=== PATIENT | male | born 1950 | race Caucasian/White ===

== ENCOUNTER → 2016-12-07 | Outpatient (CLI) | payer MEDICARE, BC ==
[2016-12-07 18:16] LABS: Blood Urea Nitrogen 18 mg/dL (9-20); Non-African American GFR(MDRD) >60 (>60 ml/min/1.73 sqM)
--- NOTE | 2016-12-07 19:04 | CT ---
EXAMINATION TYPE: CT abdomen pelvis w con DATE OF EXAM: 12/07/2016 COMPARISON: 05/21/2014 HISTORY: Follow up bladder cancer CT DLP: 2035 mGycm Automated exposure control for dose reduction was used. TECHNIQUE: Helical acquisition of images was performed from the lung bases through the pelvis. CONTRAST: Performed without Oral Contrast and with IV Contrast, patient injected with 100 mL of Omnipaque 300. FINDINGS: Lung bases are clear. There is no pleural effusion. Heart size is normal. There is a 1 cm cyst in the anterior right lobe of the liver. Bile ducts are not dilated. Gallbladder somewhat contracted. There is no pancreatic mass. Spleen appears normal. There is no adrenal mass. Kidneys show satisfactory contrast opacification. There is no hydronephrosi s. Ureters are not dilated. There is no retroperitoneal adenopathy. There is no ascites. I see no dis crete bladder mass. There is no pelvic mass. There is no ascites. I see no intestinal wall thickening . There are no dilated loops. Appendix is not definitely seen. There is no sign of appendicitis. Abdo tiara aorta is atheromatous. There are a few left renal parapelvic cysts. I see no bony destructive process. There is mild spondylosis in the lumbar spine.: IMPRESSION: NEGATIVE CT SCAN OF ABDOMEN AND PELVIS. LEFT RENAL PARAPELVIC CYSTS NOTED. NO EVIDENCE OF A BLADDER M ASS. NO ADVERSE CHANGE COMPARED TO OLD EXAM.
== END | disposition home or self-care (01) ==
LOC: RADCTMAIN 17:29
PROVIDERS: ATTEND Urology
DX: C67.2 Malignant neoplasm of lateral wall of bladder (principal); N28.1 Cyst of kidney, acquired
CPT/HCPCS: 82565; 84520; 74177; 36415; Q9967

== ENCOUNTER → 2017-12-29 | Outpatient (CLI) | payer MEDICARE, BC ==
--- NOTE | 2017-12-29 17:38 | P.STRESS ---
- Stress Test Note Stress Test Results/Findings: Exam Performed: stress echo exercise Exam Date: 12/29/17 Reason for Exam: Chest Pain Height: 6 ft 2 in Weight: 106.594 kg Protocol: Echo Stress Stage: 2 Duration of Exercise: 7:38 Resting Heart Rate: 60 Resting Blood Pressure: 124/80 Maximum Achieved Heart Rate: 114 Maximum Achieved Blood Pressure: 205/98 85% PMHR: 130 100% PMHR: 153 METS: 8.9 Technologist Comment: Stress Test Results/Findings: This 67-year-old gentleman with history of hypercholesterolemia and family history is being evaluated for chest pains. Stress data: Patient walked on the Jann protocol for 7 minutes and 38 seconds achieving a maximal heart rate 114, which is below his 81% predicted heart rate. The test was stopped because of fatigue and shortness of breath. EKG also showed ST-T changes suggestive of ischemia. About half to [address] horizontal depression was noted in the inferolateral leads. Patient did not explained any chest pain. Echo data: Baseline echo images show normal wall motion and thickening. Exercise echo images are suboptimal with poor visualization of the lateral wall. There is augmentation of wall motion and thickening in all the segments except the lateral wall which cannot be accurately assessed. It appears there is hypokinesis within the anterolateral wall. On the resting images, wall motion became normal. Final impression: #1. Positive stress test , based on EKG changes. However, patient did not achieve 85%. Heart rate #2. Probably positive stress echo with ischemic changes in the lateral wall. However, the test is suboptimal. # 3. The test was terminated because of fatigue and tiredness.
--- NOTE | 2017-12-29 17:51 | P.CRDCN ---
History of Present Illness Consult date: 12/29/17 History of present illness: This is a 67-year-old gentleman with family history of ischemic heart disease and hypercholesterolemia who has been experiencing intermittent chest discomfort. His felt on the left side of the chest radiating to the back. This intermittent and brief in duration. Patient claims that is under a lot of stress and he feels that could be related to the stress. He is also getting exertional fatigue. Patient was sent for stress test because of the symptoms. Patient walked on the Jann protocol for 7 minutes achieving only about 70% of his predicted heart rate. The test was stopped because of fatigue. EKGs showed evidence of about [address] depression in inferolateral leads suggestive of ischemia. Stress echocardiogram was suboptimal with poor visualization of the lateral borders. There could be ischemic changes in anterolateral segments. In view of symptoms and positive stress test and risk factors, patient is advised to have a cardiac catheterization. Patient was explained the risks and benefits of the procedure including the possibility of myocardial infarctions, stroke or even . Review of Systems REVIEW OF SYSTEMS: CONSTITUTIONAL: Accept them. Patient is doing well. No complaints of fever or chills EYES: Denies diplopia, blurring of vision EARS, NOSE, MOUTH, THROAT: Denies headaches, denies sore throat. CARDIOVASCULAR: Chest pain as per HPI RESPIRATORY: Denies shortness of breath, denies cough. GASTROINTESTINAL: Denies change in appetite, denies abdominal pain, denies diarrhea. History of polyps GENITOURINARY: History of bladder cancer MUSKULOSKELETAL: Denies pain, denies swelling. Denies any cramps or claudication INTEGUMENTARY: Denies rash, denies eczema. NEUROLOGICAL: Denies focal weakness, or visual disturbance. Denies any dizziness or syncope PSYCHIATRIC: Denies anxiety, denies depression. HEMATOLOGIC/LYMPHATIC: Denies any bleeding, denies enlarged lymph nodes. Past Medical History Past Medical History: Cancer, Hyperlipidemia Additional Past Medical History / Comment(s): HX POLYPS, HX BLADDER CA, HX OF RENAL CALCULUS History of Any Multi-Drug Resistant Organisms: None Reported Past Surgical History: Orthopedic Surgery Additional Past Surgical History / Comment(s): ARTHROSCOPY, WRIST, KNEE MIRIAM SHOULDER SX, BLADDER BX X3, MIRIAM THUMB JOINTS, 2 TRIGGER FINGERS Past Anesthesia/Blood Transfusion Reactions: Postoperative Nausea & Vomiting ( PONV) Smoking Status: Never smoker Medications and Allergies Home Medications Medication Instructions Recorded Confirmed Type Aspirin 81 mg PO DAILY 06/04/14 05/29/15 History Rosuvastatin [Crestor] 10 mg PO MOWEFR 06/04/14 06/02/15 History [place]-3 Fatty Acids/Fish Oil [Fish 1 each PO DAILY 05/29/15 05/29/15 History Oil 1,000 mg Softgel] Hydrocodone/Acetaminophen [[place] 1 each PO Q6HR PRN #40 tab 06/02/15 Rx 5-325] Ibuprofen [Motrin] 600 mg PO Q8HR PRN #30 tab 06/02/15 Rx Allergies Allergy/AdvReac Type Severity Reaction Status Date / Time shellfish derived Allergy Anaphylaxis Verified 05/29/15 10:54 Physical Exam Vitals: Intake and Output 12/29/17 12/29/17 12/29/17 06:59 14:59 22:59 Other: Weight 106.594 kg GENERAL EXAM: Patient is alert and oriented and doesn't appear to be in any acute distress HEENT: Normocephalic. Normal reaction of pupils, equal size, normal range of extraocular motion. No erythema or exudates in the throat. NECK: No masses, no nuchal rigidity. CHEST: No chest wall deformity. LUNGS: Equal air entry with no crackles or wheeze. HEART: S1 and S2 normal with no audible mumurs or gallops. Regular rhythm, femorals equal on both sides.. ABDOMEN: No hepatosplenomegaly, normal bowel sounds, no guarding or rigidity. SKIN: No rashes CENTRAL NERVOUS SYSTEM: No focal deficits. EXTREMITIES: No cyanosis, clubbing or edema. Results Intake and Output 12/29/17 12/29/17 12/29/17 06:59 14:59 22:59 Other: Weight 106.594 kg Patient Weight 12/30/17 06:59 Weight 106.594 kg EKG Interpretations (text) Sinus rhythm Assessment and Plan (1) Positive cardiac stress test Current Visit: Yes Status: Acute Code(s): R94.39 - ABNORMAL RESULT OF OTHER CARDIOVASCULAR FUNCTION STUDY SNOMED Code(s): 551057770 (2) Hypercholesterolemia Current Visit: Yes Status: Acute Code(s): E78.00 - PURE HYPERCHOLESTEROLEMIA , UNSPECIFIED SNOMED Code(s): 57706023 (3) Family history of ischemic heart disease Current Visit: Yes Status: Acute Code(s): Z82.49 - FAMILY HX OF ISCHEM HEART DIS AND OTH DIS OF THE CIRC SYS SNOMED Code(s): 103504780 (4) Chest pain Current Visit: Yes Status: Acute Code(s): R07.9 - CHEST PAIN, UNSPECIFIED SNOMED Code(s): 36193597 Plan: Because of positive stress test, chest pain and risk factors, patient is advised to have a cardiac catheterization. Patient is initiated on beta harika in the form of metoprolol 12.5 mg by mouth twice a day along with aspirin and sublingual nitroglycerin. Further recommendations depend upon the findings on the cardiac catheterization.
== END | disposition home or self-care (01) ==
LOC: RADNMMAIN 10:24
PROVIDERS: ATTEND Internal Medicine
DX: R07.89 Other chest pain (principal)
CPT/HCPCS: 93351

== ENCOUNTER → 2017-12-30 | Outpatient (CLI) | payer MEDICARE, BC ==
[2017-12-30 15:07] LABS: HCT 40.4 % (39.0-53.0); HGB 13.6 gm/dL (13.0-17.5); MCH 30.1 pg (25.0-35.0); MCHC 33.6 g/dL (31.0-37.0); MCV 89.7 fL (80.0-100.0); Mean Platelet Volume 6.8; Platelet Count 259 k/uL (150-450); RDW 13.2 % (11.5-15.5); WBC 7.8 k/uL (3.8-10.6)
[2017-12-30 15:43] LABS: Potassium 4.6 mmol/L (3.5-5.1)
== END | disposition home or self-care (01) ==
LOC: LABPAT 14:10
PROVIDERS: ATTEND Internal Medicine Cardiovascular Disease
DX: Z01.812 Encounter for preprocedural laboratory examination (principal); R94.39 Abnormal result of other cardiovascular function study; E11.9 Type 2 diabetes mellitus without complications
CPT/HCPCS: 36415; 80051; 82565; 84520; 85027

== ENCOUNTER 2018-01-09 10:28 | Day surgery (SDC) | payer MEDICARE, BC ==
[~2018-01-09 10:28] MED LIST: ALPRAZolam 0.25 MG TAB PO PRN; ASPIRIN 325 MG TAB PO ONE; SODIUM CHLORIDE 0.9% 1,000 ML in EMPTY BAG 1 BAG IV ONE
[2018-01-09] MEDS ORDERED: MIDAZOLAM 2 MG/2 ML VIAL ONE (11:30)
[2018-01-09] MEDS ORDERED: fentaNYL (PF) 50 MCG/ML 2 ML AMP ONE (11:30)
[2018-01-09] MEDS ORDERED: fentaNYL (PF) 50 MCG/ML 2 ML AMP IVP ONE (12:01)
[2018-01-09] MEDS ORDERED: MIDAZOLAM 2 MG/2 ML VIAL IVP ONE (12:01)
[2018-01-09] MEDS ORDERED: IV FLUID CONTINUATION 1,000 ML IV ONE (12:02)
[2018-01-09] MEDS ORDERED: LIDOCAINE 1% INJ 10MG/ML (20 ML MDV) SQ ONE (12:06)
[2018-01-09] MEDS ORDERED: IOPAMIDOL-300 50ML BTL INJ ONE (12:25)
[2018-01-09] MEDS ORDERED: IOPAMIDOL-370 125ML BTL INJ ONE (12:25)
[2018-01-09] MEDS ORDERED: RX INFO: IV CONTRAST WAS GIVEN 1 EACH MISC MISCELLANE PRN (12:39)
--- NOTE | 2018-01-09 12:51 | P.CARDCATH ---
Date of Procedure: 01/09/18 Postoperative Diagnosis: Stable angina and positive stress test Procedure(s) Performed: Left heart catheterization with left ventriculography Description of Procedure: HISTORY: This is a 67-year-old gentleman with history of hypercholesterolemia and family history of ischemic heart disease who was recently evaluated by stress test because of chest pains. Patient developed ischemic changes on the EKG and stress echocardiogram was size to of ischemia. Patient was advised to have a cardiac catheterization for definitive diagnosis. CONSENT:I have discussed the risks, benefits and alternative therapies for the above-mentioned procedure and for both sedation/analgesia as well as necessary blood product administration, if indicated, as they pertain to this patient. The patient has indicated understanding and acceptance of the risks and procedures discussed. PROCEDURE: Patient was brought to the lab in a fasting state. Patient was given some IV sedation. The right groin is infiltrated with lidocaine and right femoral artery was entered using Seldinger technique. A 6-Portuguese catheter was left in place and selective coronary arteriography and left ventriculography was performed. Patient tolerated the procedure well. Femoral angiogram was performed and Angio-Seal was applied for hemostasis. No immediate complications were noted and patient was transferred to [facility] in a stable condition Conscious Sedation: Versed 1mg Fentanyl 25 g Duration 30minutes HEMODYNAMICS: The aortic pressure is about 110/70. Left ankle end-diastolic pressure is about 15-20. There was no gradient across the aortic valve. SELECTIVE CORONARY ARTERIOGRAPHY: LEFT MAIN: Short and patent. THE LEFT ANTERIOR DESCENDING CORONARY ARTERY: This is a good caliber vessel with a long this is a segment in the proximal portion. There is about 70% stenosis of the mid LAD. Beyond that the vessel is free of occlusive disease. He did use ice to good-sized diagonal branch which has a long 90% to 95% stenosis proximally THE LEFT CIRCUMFLEX AND IS CORONARY ARTERY: .This is a moderate caliber vessel. It has about 60-70% stenosis distally. THE RIGHT CORONARY ARTERY: This seemed to be dominant vessel but totally occluded. There are collaterals from the contralateral also ipsilateral system. LEFT VENTRICULOGRAPHY: This revealed normal-sized cardiac silhouette with preserved LV function. FINAL IMPRESSION: Triple-vessel disease with significant disease disease involving the mid LAD, good-sized first diagonal with intermediate disease in the circumflex and total occlusion of the RCA. PLAN: Revascularization with bypass surgery. PROGNOSIS: Fair
--- NOTE | 2018-01-09 14:05 | P.GSCN ---
<Arlet Burks - Last Filed: 01/09/18 13:49> History of Present Illness Consult date: 01/09/18 Reason for Consult: Triple vessel coronary artery disease, surgical revascularization recommendations. Requesting physician: Hector Grewal History of present illness: This is a 67-year-old active gentleman who follows with Dr. Calero on an outpatient basis. He has a previous medical history of hypertension, hyperlipidemia, family history of heart disease, and bladder cancer diagnosed in 2013, currently in remission with 1 round of chemo and current BCG therapy, and he has never smoked. He has also had multiple orthopedic surgeries. This patient presented to cardiology associates with complaints of chest tightness on the left side radiating to his back associated with shortness of breath with exertion and extreme fatigue. He states these symptoms have been occurring over the last several months, that he has been under a lot of stress lately, and he felt his symptoms were stress-related. He denied nausea, vomiting, diarrhea, fever, chills, syncope, strokelike symptoms, sick contacts. He underwent stress testing 12/29/2017 which which was abnormal. In addition he had an echocardiogram in the cardiology office on 01/02/2018 demonstrating normal LV function with an ejection fraction of 55%, mild mitral regurgitation, trace aortic insufficiency, and trace tricuspid regurgitation. He was recommended to undergo heart catheterization which was completed this morning and which demonstrated proximal LAD stenosis 50%, diagonal stenosis 95%, circumflex stenosis 60-70%, and total occlusion of the RCA. Dr. Saldana from cardiothoracic surgery was consulted regarding surgical revascularization recommendations. Review of Systems Review of systems was completed and was negative except as noted. - Constitutional Reports as per HPI, Reports fatigue - Cardiovascular Reports as per HPI, Reports chest pain, Reports dyspnea on exertion Past Medical History Past Medical History: Coronary Artery Disease (CAD), Cancer, Hyperlipidemia Additional Past Medical History / Comment(s): HX BLADDER CA, HX OF RENAL CALCULUS yrs ago; See Dr Grewal's H&P History of Any Multi-Drug Resistant Organisms: None Reported Past Surgical History: Bladder Surgery, Orthopedic Surgery Additional Past Surgical History / Comment(s): Arthroscopy L Shoulder x 2; Arthroscopy L Knee X 2; Wrist surg.; BLADDER SX X 6, MIRIAM THUMB JOINTS, 2 TRIGGER FINGERS Past Anesthesia/Blood Transfusion Reactions: Postoperative Nausea & Vomiting ( PONV) Past Psychological History: No Psychological Hx Reported Smoking Status: Never smoker Past Alcohol Use History: Occasional Past Drug Use History: None Reported - Past Family History Mother Family Medical History: Coronary Artery Disease (CAD) Medications and Allergies Home Medications Medication Instructions Recorded Confirmed Type Aspirin 81 mg PO DAILY 06/04/14 01/03/18 History Rosuvastatin [Crestor] 10 mg PO MOWEFR 06/04/14 01/03/18 History Ibuprofen [Motrin] 600 mg PO Q8HR PRN #30 tab 06/02/15 01/03/18 Rx Cyanocobalamin (Vitamin B-12) 2,000 mcg PO Q14D 01/03/18 01/03/18 History [Vitamin B-12] Metoprolol Tartrate [Lopressor] 12.5 mg PO BID 01/03/18 01/03/18 History Allergies Allergy/AdvReac Type Severity Reaction Status Date / Time shellfish derived Allergy Anaphylaxis Verified 01/03/18 15:09 Surgical - Exam Vital Signs Temp Pulse Resp BP Pulse Ox 97.8 F 71 20 141/84 96 01/09/18 11:09 01/09/18 11:09 01/09/18 11:09 01/09/18 11:09 01/09/18 11:09 - General well developed, well nourished, no distress, no pain, obese - Eyes PERRL, normal ocular movement - ENT no hearing loss - Neck no masses, no bruits, trachea midline - Respiratory Lungs sounds clear bilaterally. Respirations even, nonlabored. Currently on room air with oxygen saturation 96%. No chest wall deformities. - Cardiovascular S1, S2 present. Regular rate and rhythm, sinus rhythm on telemetry. Palpable peripheral pulses bilaterally. No edema present. No calf pain or tenderness noted. No varicosities noted. - Abdomen Abdomen: soft, non tender, bowel sounds - Genitourinary Deferred - Rectum Deferred - Integumentary no rash, no growths - Neurologic normal coordination, normal sensation - Psychiatric oriented to time, oriented to person, oriented to place, speech is normal, memory intact Results - Imaging Additional studies: Heart catheterization films reviewed. Assessment and Plan (1) Hypertension Current Visit: Yes Status: Chronic Code(s): I10 - ESSENTIAL (PRIMARY) HYPERTENSION SNOMED Code(s): 60147776 (2) Family history of ischemic heart disease Current Visit: Yes Status: Chronic Code(s): Z82.49 - FAMILY HX OF ISCHEM HEART DIS AND OTH DIS OF THE CIRC SYS SNOMED Code(s): 567170544 (3) Hypercholesterolemia Current Visit: Yes Status: Chronic Code(s): E78.00 - PURE HYPERCHOLESTEROLEMIA, UNSPECIFIED SNOMED Code(s): 52558703 (4) Positive cardiac stress test Current Visit: Yes Status: Acute Code(s): R94.39 - ABNORMAL RESULT OF OTHER CARDIOVASCULAR FUNCTION STUDY SNOMED Code(s): 616813008 Plan: The patient was seen and examined at the bedside. Chart/diagnostics were reviewed. Heart catheterization films reviewed. The case will be discussed with Dr. Saldana. Preoperative teaching was initiated and all questions were answered. Preoperative testing was ordered. Currently the patient is stable having no pain whatsoever. We would recommend continued maximal medical therapy with aspirin, statin, beta harika. The patient will be staying overnight for IV hydration and to complete preoperative testing. More recommendations will follow once testing is completed. This was explained in detail to the patient and his and they are in agreement with this plan. Thank you Dr. Grewal for this consult. We look forward to working with you in the care of your patient. Time with Patient: Greater than 30 <Larry Saldana R - Last Filed: 01/10/18 09:13> Surgical - Exam Vital Signs Temp Pulse Resp BP Pulse Ox 97.8 F 71 20 141/84 96 01/09/18 11:09 01/09/18 11:09 01/09/18 11:09 01/09/18 11:09 01/09/18 11:09 Results - Labs 01/09/18 15:01 01/09/18 15:01 Abnormal Lab Results - Last 24 Hours (Table) 01/09/18 01/09/18 01/09/18 Range/Units 15:01 15:01 17:15 WBC 20.9 H (3.8-10.6) k/uL Neutrophils # 18.8 H (1.3-7.7) k/uL Chloride 109 H (98-107) mmol/L Carbon Dioxide 20 L (22-30) mmol/L Glucose 169 H (74-99) mg/dL LDL Cholesterol, Calc 109 H (0-99) mg/dL TSH 0.176 L (0.465-4.680) mIU/L Ur Specific [place] >1.050 H (1.001-1.035) Urine Glucose (UA) 1+ H (Negative) Microbiology - Last 24 Hours (Table) 01/09/18 17:15 Urine Culture - Preliminary Urine,Voided 01/09/18 18:25 Nasal Screen MRSA/MSSA - Preliminary Nasal Swab Diabetes panel 01/09/18 Range/Units 15:01 Sodium 140 (137-145) mmol/L Potassium 4.6 (3.5-5.1) mmol/L Chloride 109 H (98-107) mmol/L Carbon Dioxide 20 L (22-30) mmol/L BUN 20 (9-20) mg/dL Creatinine 1.02 (0.66-1.25) mg/dL Glucose 169 H (74-99) mg/dL Calcium 9.5 (8.4-10.2) mg/dL AST 27 (17-59) U/L ALT 44 (21-72) U/L Alkaline Phosphatase 62 (38-126) U/L Total Protein 6.6 (6.3-8.2) g/dL Albumin 4.1 (3.5-5.0) g/dL Triglycerides 93 (<150) mg/dL HDL Cholesterol 49 (40-60) mg/dL Thyroid panel 01/09/18 Range/Units 15:01 TSH 0.176 L (0.465-4.680) mIU/L Calcium panel 01/09/18 Range/Units 15:01 Calcium 9.5 (8.4-10.2) mg/dL Albumin 4.1 (3.5-5.0) g/dL Pituitary panel 01/09/18 Range/Units 15:01 Sodium 140 (137-145) mmol/L Potassium 4.6 (3.5-5.1) mmol/L Chloride 109 H (98-107) mmol/L Carbon Dioxide 20 L (22-30) mmol/L BUN 20 (9-20) mg/dL Creatinine 1.02 (0.66-1.25) mg/dL Glucose 169 H (74-99) mg/dL Calcium 9.5 (8.4-10.2) mg/dL TSH 0.176 L (0.465-4.680) mIU/L Adrenal panel 08/20/18 Range/Units 15:01 Sodium 140 (137-145) mmol/L Potassium 4.6 (3.5-5.1) mmol/L Chloride 109 H (98-107) mmol/L Carbon Dioxide 20 L (22-30) mmol/L BUN 20 (9-20) mg/dL Creatinine 1.02 (0.66-1.25) mg/dL Glucose 169 H (74-99) mg/dL Calcium 9.5 (8.4-10.2) mg/dL Total Bilirubin 0.3 (0.2-1.3) mg/dL AST 27 (17-59) U/L ALT 44 (21-72) U/L Alkaline Phosphatase 62 (38-126) U/L Total Protein 6.6 (6.3-8.2) g/dL Albumin 4.1 (3.5-5.0) g/dL Assessment and Plan Assessment: 67 yo m with typical angina sx, three vessel CAD with preserved LV fx by cath, min valve dz by echo. Needs elective CABG. Patient seen and examined. Discussed surgery with him and his . Plan to see in office this week and schedule elective CABG
[2018-01-09] MEDS: SODIUM CHLORIDE 0.9% 1,000 ML IV SCH (14:41)
[2018-01-09 15:15] LABS: Basophils % (A) 0 %; Eosinophils # (A) 0.1 k/uL (0-0.7); Eosinophils % (A) 0 %; HCT 43.7 % (39.0-53.0); HGB 13.9 gm/dL (13.0-17.5); Lymphocytes # (A) 1.4 k/uL (1.0-4.8); Lymphocytes % (A) 7 %; MCH 29.1 pg (25.0-35.0); MCHC 31.7 g/dL (31.0-37.0); MCV 91.6 fL (80.0-100.0); Mean Platelet Volume 6.9; Monocytes # (A) 0.6 k/uL (0-1.0); Monocytes % (A) 3 %; Neutrophils # (A) 18.8 k/uL (1.3-7.7); Neutrophils % (A) 90 %; Platelet Count 261 k/uL (150-450); RBC 4.77 m/uL (4.30-5.90); RDW 13.2 % (11.5-15.5); WBC 20.9 k/uL (3.8-10.6)
[2018-01-09 15:27] LABS: Albumin 4.1 g/dL (3.5-5.0); Calcium 9.5 mg/dL (8.4-10.2); INR 1.1 (<1.2); Magnesium 2.2 mg/dL (1.6-2.3); Partial Thromboplastin Time 22.7 sec (22.0-30.0); Potassium 4.6 mmol/L (3.5-5.1); Total Bilirubin 0.3 mg/dL (0.2-1.3); Total Protein 6.6 g/dL (6.3-8.2)
[2018-01-09 15:57] VITALS: BMI 29.2
[2018-01-09 16:42] LABS: T4, Free (Free Thyroxine) 0.9 ng/dL (0.78-2.19)
[2018-01-09 17:38] LABS: Appearance,Urine Clear (Clear); Bilirubin,Urine Negative (Negative); Blood,Urine Negative (Negative); Color,Urine Yellow; Glucose,Urine (UA) 1+ (Negative); Ketones,Urine Negative (Negative); Leukocyte Esterase,Urine Negative (Negative); Nitrite,Urine Negative (Negative); PH, Urine 5.5 (5.0-8.0); Protein,Urine Negative (Negative); Urobilinogen,Urine <2.0 mg/dL (<2.0)
[2018-01-09 18:19] LABS: Specific Gravity,Urine >1.050 (1.001-1.035)
--- NOTE | 2018-01-09 18:31 | US ---
EXAMINATION TYPE: US carotid duplex BILAT DATE OF EXAM: 01/09/2018 COMPARISON: CT CLINICAL HISTORY: preop cabg. EXAM MEASUREMENTS: RIGHT: Peak Systolic Velocity (PSV) cm/sec ----- Right CCA: 87.1 ----- Right ICA: 87.9 ----- Right ECA: 117.7 ICA/CCA ratio: 1.0 RIGHT: End Diastole cm/sec ----- Right CCA: 20.2 ----- Right ICA: 19.3 ----- Right ECA: 14.4 LEFT: Peak Systolic Velocity (PSV) cm/sec ----- Left CCA: 85.8 ----- Left ICA: 75.2 ----- Left ECA: 106.6 ICA/CCA ratio: 0.9 LEFT: End Diastole cm/sec ----- Left CCA: 21.0 ----- Left ICA: 19.7 ----- Left ECA: 16.7 VERTEBRALS (direction of flow): Right Vertebral: Antegrade Left Vertebral: Antegrade Rhythm: Normal Mild to moderate intimal wall changes imaged at bilateral carotid bifurcation, but PSV is wnl bilater ally. IMPRESSION: There is antegrade flow in the vertebral arteries. The images and measurements suggest 3 0% stenosis in both internal carotid arteries. Criteria for Assigning % of Stenosis / Diameter reduction (Estimation based on the indirect measurements of the internal carotid artery velocities (ICA PSV). 1. Normal (no stenosis)=ICA PSV < 125 cm/s: ratio < 2.0: ICA EDV<40 cm/s. 2. Less than 50% stenosis=ICA PSV < 125 cm/s: ratio < 2.0: ICA EDV<40 cm/s. 3. 50 to 69% stenosis=ICA PSV of 125 to 230 cm/s: ration 2.0 ? 4.0: ICA EDV 40-100 cm/s. 4. Greater than 70% stenosis to near occlusion= ICA PSV > 230 cm/s: ratio > 4.0: ICA EDV > 100 cm/s. 5. Near occlusion= ICA PSV velocities may be low or undetectable: variable ratio and ICA EDV. 6. Total occlusion=unable to detect flow.
[2018-01-09 20:54] VITALS: RESP 16
[2018-01-09] MEDS ORDERED: ATORVASTATIN 20 MG TAB PO SCH (21:00)
--- NOTE | 2018-01-09 21:07 | XR ---
EXAMINATION TYPE: XR chest 2V DATE OF EXAM: 01/09/2018 COMPARISON: None HISTORY: Preop cardiac surgery TECHNIQUE: Frontal and lateral views of the chest are obtained. FINDINGS: Heart and mediastinum are normal. Lungs are clear. Diaphragm is normal. Bony thorax is int act. IMPRESSION: No active cardiopulmonary disease. Normal heart.
[2018-01-09] MEDS: METOPROLOL TARTRATE 12.5 MG TAB PO SCH (21:38)
[2018-01-10] MEDS: SODIUM CHLORIDE 0.9% 1,000 ML IV SCH (07:44)
[2018-01-10] MEDS ORDERED: ASPIRIN 81 MG PO SCH (09:00)
[2018-01-10] MEDS: METOPROLOL TARTRATE 12.5 MG TAB PO SCH (10:34)
[2018-01-10] MEDS ORDERED: MUPIROCIN 2% OINT 22 GM TUBE TOPICAL SCH (11:00)
--- NOTE | 2018-01-10 11:10 | P.VSCSTY ---
Greater Saphenous Vein Mapping This is bilateral lower extremity greater saphenous vein mapping. Date of service 01/09/2018 operation Vein quality and ultrasound appearance no obvious intraluminal thrombus or wall changes. We had to avoid the right groin due to dressings.. Vein size groin right [ ] groin left 6.2 x 6.3 High thigh right 4.9 x 3.8 high thigh left 4.7 x 4.0 Mid thigh right 3.5 x 2.8 mid thigh left 4.6 x 4.4 Above-knee right 3.7 x 3.2 above- knee left 4.6 x 3.1 Below knee right 3.8 x 2.6 below-knee left 3.5 x 3.2 Mid calf right 2.6 x 2.4 mid calf left 3.2 x 2.8 Ankle right 4 x 3 ankle left 3.4 x 2.8 Impression usable bilateral greater saphenous vein.
[2018-01-10 11:59] VITALS: BP 136/86; PULSE 56; TEMP 97.7
--- NOTE | 2018-01-10 14:23 | P.DS ---
Providers Attending physician: Hector Grewal Consults: 01/09/18 13:27 Consult Physician Routine Consulting Provider: Cinda Kimbrough Consult Reason/Comments: preop cabg Do you want consulting provider notified?: Yes Primary care physician: Dick Jamil [facility] Course: INTERVAL HISTORY: The patient is a 67-year-old male admitted to the hospital by Dr. Grewal for elective cardiac catheterization. Cath revealed left main-short and patent; LAD 70% mid stenosis, beyond that vessel is free of occlusive disease; diagonal branch 90-95% stenosis proximally; left circumflex 60-70% stenosis distally; and RCA totally occluded with collaterals. CT surgery was consulted. He was seen by Dr. Juarez and recommendation has been made for quadruple bypass. Pre-operative testing completed. Bilateral carotid duplex indicate mild to moderate intimal wall changes with 30% stenosis in both internal carotid arteries. Chest x-ray negative for an acute cardiopulmonary process. SVG mapping complete. He denies symptoms of chest discomfort, shortness of breath, dizziness, nausea, vomiting or diaphoresis. He has been up and ambulating with no symptoms of angina. Right groin soft, nontender, no hematoma, no ecchymosis, peripheral pulses intact. Hemodynamically stable. PHYSICAL EXAMINATION: Blood pressure 136/86, heart rate 56, respirations 16, temp 97.7F. Patient is 97 % [on room air]. HEART: S1, S2 normal. LUNGS: Clear to auscultation. NECK: Supple. ABDOMEN: Soft. EXTREMITIES: 2+ peripheral pulses. Right groin soft, nontender, no hematoma, no swelling, no ecchymosis. FINAL IMPRESSION: 1. Coronary artery disease awaiting bypass surgery. 2. Dyslipidemia 3. Bladder cancer, currently undergoing treatment PLAN: Patient may be able to be discharged home today. Follow-up appointment made for 01/[address] Grewal. Patient Condition at Discharge: Stable Plan - Discharge Summary Discharge Rx Participant: No New Discharge Prescriptions: Continue Rosuvastatin [Crestor] 10 mg PO MOWEFR Aspirin 81 mg PO DAILY Metoprolol Tartrate [Lopressor] 12.5 mg PO BID Cyanocobalamin (Vitamin B-12) [Vitamin B-12] 2,000 mcg PO Q14D Discontinued Ibuprofen [Motrin] 600 mg PO Q8HR PRN #30 tab PRN Reason: Pain Discharge Medication List Aspirin 81 mg PO DAILY 06/04/14 [History] Rosuvastatin [Crestor] 10 mg PO MOWEFR 06/04/14 [History] Cyanocobalamin (Vitamin B-12) [Vitamin B-12] 2,000 mcg PO Q14D 01/03/18 [History ] Metoprolol Tartrate [Lopressor] 12.5 mg PO BID 01/03/18 [History] Follow up Appointment(s)/Referral(s): Hector Grewal MD [STAFF PHYSICIAN] - 01/16/18 3:30 pm () Patient Instructions/Handouts: Heart Catheterization (DC) Discharge Disposition: HOME SELF-CARE
--- NOTE | 2018-01-17 11:11 | P.ARTDOP ---
Arterial Doppler Bilateral radial artery testing: Date of exam: 01/10/2018 Reason for exam: Pre-CABG Doppler study with segmental pressures show no evidence of segmental or right to left pressure gradients. Digital plethysmography with radial artery compression shows no significant pressure changes Imaging shows the right to be between 2.5 x 3 mm and 3.8 x 3 mm and the left to be between 2.3 x 2.8 mm and 3.3 x 3.6 mm Impression: Both radial arteries are usable as conduit by current standards.
[2018-01-22] MEDS ORDERED: CYANOCOBALAMIN 500 MCG TAB PO SCH (09:00)
== END 2018-01-10 12:17 | disposition home or self-care (01) ==
LOC: CATHCVL 10:28 → 3OBS 14:18 → CATHCVL 01-10 12:17
PROVIDERS: ATTEND Internal Medicine Cardiovascular Disease
DX: I25.119 Atherosclerotic heart disease of native coronary artery with unspecified angina pectoris (principal); I25.82 Chronic total occlusion of coronary artery; Z01.810 Encounter for preprocedural cardiovascular examination; E78.00 Pure hypercholesterolemia, unspecified; I08.3 Combined rheumatic disorders of mitral, aortic and tricuspid valves; I65.23 Occlusion and stenosis of bilateral carotid arteries; E78.5 Hyperlipidemia, unspecified; I10 Essential (primary) hypertension; R94.39 Abnormal result of other cardiovascular function study; Z79.82 Long term (current) use of aspirin; Z79.899 Other long term (current) drug therapy; Z85.51 Personal history of malignant neoplasm of bladder; Z82.49 Family history of ischemic heart disease and other diseases of the circulatory system; Z91.013 Allergy to seafood
CPT/HCPCS: 93458; 86900 ×2; 86901 ×2; 84439; 80061; 80053; 84443; 83735; 85025; 85610; 85730; 86850 ×2; 86920; 81003; 87070; 87086; 71046; 93930; 93970; 93923; 93880; C1760; C1894; C1769; J2250; J2001; J3010; Q9967 ×2; 94150

== ENCOUNTER → 2018-01-14 | Outpatient (CLI) | payer MEDICARE, BC ==
[2018-01-14 08:45] LABS: Basophils # (A) 0.1 k/uL (0-0.2); Basophils % (A) 1 %; Eosinophils # (A) 0.6 k/uL (0-0.7); Eosinophils % (A) 5 %; HCT 48.9 % (39.0-53.0); HGB 15.4 gm/dL (13.0-17.5); Lymphocytes # (A) 3.1 k/uL (1.0-4.8); Lymphocytes % (A) 27 %; MCH 28.9 pg (25.0-35.0); MCHC 31.5 g/dL (31.0-37.0); MCV 91.9 fL (80.0-100.0); Mean Platelet Volume 6.7; Monocytes # (A) 0.6 k/uL (0-1.0); Monocytes % (A) 5 %; Neutrophils # (A) 7.1 k/uL (1.3-7.7); Neutrophils % (A) 61 %; Platelet Count 284 k/uL (150-450); RBC 5.32 m/uL (4.30-5.90); WBC 11.6 k/uL (3.8-10.6)
[2018-01-14 17:29] LABS: Hepatitis A Antibody IgM Non-Reactive (Non-Reactive); Hepatitis B Core IgM Non-Reactive (Non-Reactive)
== END | disposition home or self-care (01) ==
LOC: LABPAT 08:18
PROVIDERS: ATTEND Thoracic Surgery (Cardiothoracic Vascular Surgery)
DX: Z01.818 Encounter for other preprocedural examination (principal); I25.10 Atherosclerotic heart disease of native coronary artery without angina pectoris
CPT/HCPCS: 36415; 80074; 83036; 85025

== ENCOUNTER 2018-01-18 05:35 | Inpatient (IN) | payer MEDICARE, BC ==
[~2018-01-18 05:35] MED LIST changes: +ALBUMIN HUMAN 25% 50 ML IV ONE; +ALBUMIN HUMAN 5% 500 ML IVPB ONE; -ALPRAZolam 0.25 MG TAB PO PRN; +ATORVASTATIN 10 MG TAB PO ONE; +CALCIUM CHLORIDE 100 MG/ML 10 ML SYRINGE IV ONE; +CARDIOPLEGIC SOLN (K+ 16 MEQ/L 1,000 ML with SODIUM BICARB (1 MEQ/ML) 20 ML, LIDOCAINE ... PERFUSION ONE; +CHLORHEXIDINE GLUCONATE 15 ML CUP MUCOUS MEM ONE; +CLEVIDIPINE BUTYRATE 25 MG in EMPTY BAG 1 BAG IV ONE; +DEXAMETHASONE SOD PHOSPHATE 10 MG/ML 1 ML VIAL IV ONE; +DILTIAZEM 125 MG in SODIUM CHLORIDE 0.9% 100 ML IV ONE; +HEPARIN SODIUM 1,000 UN/ML (10ML VL) IV ONE; +HEPARIN SODIUM,PORCINE 5,000 UNIT in SODIUM CHLORIDE 0.9% 500 ML IV ONE; +INSULIN REGULAR 100 UNIT in SODIUM CHLORIDE 0.9% 100 ML IV ONE; +LACTATED RINGERS 1,000 ML IV ONE; +LIDOCAINE 1% 20 ML VIAL (10MG/ML) FOR IV START INTRADERMA PRN; +MAGNESIUM SULFATE MG 500 MG/ML VIAL IV ONE; +MANNITOL 25% 12.5 GM/50 ML VIAL IV ONE; +METOPROLOL TARTRATE 12.5 MG TAB PO ONE; +MIDAZOLAM 2 MG/2 ML VIAL IV PRN; +NITROGLYCERIN-D5W PMX 25 MG/250 ML BTL IV ONE; +NITROGLYCERIN-D5W PMX 50 MG in DEXTROSE/WATER 1 250ML.BAG IV ONE; +NOREPINEPHRINE 4 MG in SODIUM CHLORIDE 0.9% 250 ML IV ONE; +ONDANSETRON 4 MG/2 ML VIAL IVP ONE; +PAPAVERINE 360 MG in SODIUM CHLORIDE 0.9% 90 ML IV ONE; +PHENYLEPHRINE 40 MG in SODIUM CHLORIDE 0.9% 250 ML IV ONE; +PHENYLEPHRINE-0.9% NACL SYG 1 MG/10 ML SYRINGE IV ONE; +PROPOFOL 1,000 MG/100 ML VIAL IV ONE; +PROTAMINE SULFATE 10 MG/ML 25 ML VIAL IV ONE; +PROTAMINE SULFATE 250 MG in EMPTY BAG 1 BAG IV ONE; +SODIUM BICARB 8.4% 50 ML SYR (1 MEQ/ML) IV ONE; +SODIUM CHLORIDE 0.9% 1,000 ML IV ONE; -SODIUM CHLORIDE 0.9% 1,000 ML in EMPTY BAG 1 BAG IV ONE; +TRANEXAMIC ACID 2,000 MG in SODIUM CHLORIDE 0.9% 180 ML IV ONE; +ceFAZolin 1,000 MG in SODIUM CHLORIDE 0.9% IRRIGATIO 1,000 ML IRRIGATION ONE; +ceFAZolin 2,000 MG in SODIUM CHLORIDE 0.9% 30 ML IVPB ONE; +ceFAZolin IN SWFI 2 GM/20 ML SYRINGE IVP ONE; +fentaNYL (PF) 50 MCG/ML 2 ML AMP IV PRN; +fentaNYL (PF) 50 MCG/ML 2 ML AMP IVP PRN
[2018-01-18] MEDS ORDERED: HEPARIN SODIUM,PORCINE 10,000 UNIT/ML 1 ML VIAL ONE (07:48)
[2018-01-18] MEDS ORDERED: PROTAMINE SULFATE 10 MG/ML 25 ML VIAL IV ONE (07:48)
[2018-01-18] MEDS ORDERED: PHENYLEPHRINE-0.9% NACL SYG 1 MG/10 ML SYRINGE ONE (07:48)
[2018-01-18] MEDS ORDERED: fentaNYL (PF) 50 MCG/ML 2 ML AMP ONE (07:48)
[2018-01-18] MEDS ORDERED: MIDAZOLAM 2 MG/2 ML VIAL ONE (07:48)
[2018-01-18] MEDS ORDERED: PROPOFOL 10 MG/ML 20 ML VIAL IV ONE (07:48)
[2018-01-18] MEDS ORDERED: SUCCINYLCHOLINE CHLORIDE 100 MG/5 ML SYR IV ONE (07:48)
[2018-01-18] MEDS ORDERED: VECURONIUM 10 MG VIAL IV ONE (07:48)
[2018-01-18] MEDS ORDERED: SODIUM CHLORIDE 0.9% 250 ML BAG ONE (07:48)
[2018-01-18] MEDS ORDERED: fentaNYL (PF) 50 MCG/ML 50 ML VIAL ONE (07:48)
[2018-01-18] MEDS ORDERED: TRANEXAMIC ACID 1,000 MG/10 ML VIAL ONE (07:48)
[2018-01-18] MEDS ORDERED: MAGNESIUM SULFATE 4 MEQ/ML 2 ML VIAL ONE (07:48)
[2018-01-18] MEDS ORDERED: SODIUM CHLORIDE 0.9% IRRIG 1,000 ML BTL IRRIGATION ONE (07:48)
[2018-01-18 08:34] LABS: ABG Base Excess -1.7 mmol/L; ABG HCO3 23 mmol/L (21-25); ABG Oxygen Saturation 99.7 % (94-97); ABG PCO2 38 mmHg (35-45); ABG PH 7.39 (7.35-7.45); ABG PO2 204 mmHg (83-108); ABG Potassium Whole Blood 4.6 mmol/L (3.4-4.5); ABG Sodium Whole Blood 141 mmol/L (135-146); ABG TCO2 24 mmol/L (19-24)
[2018-01-18] MEDS ORDERED: DILTIAZEM 50 MG in SODIUM CHLORIDE 0.9% 40 ML IV ONE (09:00)
[2018-01-18 10:23] LABS: ABG Base Excess -2.2 mmol/L; ABG HCO3 23 mmol/L (21-25); ABG Oxygen Saturation 99.5 % (94-97); ABG PCO2 41 mmHg (35-45); ABG PH 7.36 (7.35-7.45); ABG PO2 186 mmHg (83-108); ABG Potassium Whole Blood 4.7 mmol/L (3.4-4.5); ABG Sodium Whole Blood 141 mmol/L (135-146); ABG TCO2 24 mmol/L (19-24)
[2018-01-18 10:43] LABS: ABG Base Excess -3.2 mmol/L; ABG HCO3 22 mmol/L (21-25); ABG Oxygen Saturation 99.5 % (94-97); ABG PCO2 41 mmHg (35-45); ABG PH 7.35 (7.35-7.45); ABG PO2 200 mmHg (83-108); ABG Potassium Whole Blood 4.5 mmol/L (3.4-4.5); ABG Sodium Whole Blood 141 mmol/L (135-146); ABG TCO2 24 mmol/L (19-24)
[2018-01-18 11:15] LABS: ABG Base Excess -3.5 mmol/L; ABG HCO3 22 mmol/L (21-25); ABG Oxygen Saturation 99.6 % (94-97); ABG PCO2 40 mmHg (35-45); ABG PH 7.35 (7.35-7.45); ABG PO2 202 mmHg (83-108); ABG Potassium Whole Blood 4.4 mmol/L (3.4-4.5); ABG Sodium Whole Blood 141 mmol/L (135-146); ABG TCO2 23 mmol/L (19-24)
[2018-01-18 11:48] LABS: ABG Base Excess -4.4 mmol/L; ABG HCO3 21 mmol/L (21-25); ABG Oxygen Saturation 99.4 % (94-97); ABG PCO2 39 mmHg (35-45); ABG PH 7.34 (7.35-7.45); ABG PO2 199 mmHg (83-108); ABG Potassium Whole Blood 4.3 mmol/L (3.4-4.5); ABG Sodium Whole Blood 140 mmol/L (135-146); ABG TCO2 22 mmol/L (19-24)
[2018-01-18 12:23] LABS: ABG Base Excess -4.2 mmol/L; ABG HCO3 21 mmol/L (21-25); ABG Oxygen Saturation 98.4 % (94-97); ABG PCO2 40 mmHg (35-45); ABG PH 7.34 (7.35-7.45); ABG PO2 116 mmHg (83-108); ABG Potassium Whole Blood 4.1 mmol/L (3.4-4.5); ABG Sodium Whole Blood 141 mmol/L (135-146); ABG TCO2 23 mmol/L (19-24)
--- NOTE | 2018-01-18 12:57 | P.OP ---
Date of Procedure: 01/18/18 Preoperative Diagnosis: Coronary artery disease Postoperative Diagnosis: Same Procedure(s) Performed: Off pump CABG 4 with sequential SEXTON to diagonal and LAD, left radial artery graft to first obtuse marginal, saphenous vein graft to posterior descending coronary artery with endovascular vein and radial harvest and intraoperative RADHA by anesthesia. Anesthesia: NIALL Surgeon: Larry Saldana Senior Db2 Systems Programmer #1: Magnus Norman Senior Db2 Systems Programmer #2: Sabas Garcia Estimated Blood Loss (ml): 200 IV fluids (ml): 2,000 Urine output (ml): 1,000 Pathology: none sent Condition: stable Disposition: ICU Indications for Procedure: 67-year-old male with accelerating angina pectoris and three-vessel coronary artery disease. Operative Findings: Good targets, good conduits, soft aorta, good ventricle with no evidence of valvular disease by RADHA. Description of Procedure: The patient was brought to the operating room, placed supine on the operating table, anesthetized and intubated. Radial arterial line and Ferguson-Eber catheter had been placed in the preop holding area. South catheter RADHA probe placed. The anterior torso and lower extremities and left upper extremity were sterilely prepped and draped. Saphenous vein was harvested from just below the knee to the left groin. It was a greater saphenous vein. The left radial artery was harvested from the left forearm. Both of these conduits were harvested using endovascular technique. Simultaneous sternotomy was performed. Left hemisternum was retracted upwards and the left internal mammary artery harvested on a vascularized pedicle and left intact on its origin from the subclavian. Was an excellent conduit. It was divided distally. Left pleural space was drained with 32-Bengali chest tube. Standard sternal retractor was placed and the pericardium was opened. The heart was exposed with pericardial sutures. Suction stabilization was used during distal anastomosis. Patient was systemically heparinized and ACTs were maintained greater than 250 during grafting. Sequential SEXTON to first diagonal and LAD was performed first. First we performed a side to side anastomosis between first diagonal and the SEXTON. On completion of this we noted poor flow distally and what appeared to be a kink in the vessel. The anastomosis was taken down and it was noted that we had caught the back wall of the SEXTON. The anastomosis was redone with much better flow and no evidence of kinking. Now perform the distal anastomosis of the SEXTON to the LAD. The LAD was grafted in its midportion. The first diagonal was a 1.75 mm vessel of good quality. The LAD was 2 mm vessel of good quality. Distal anastomosis was performed with running 8-0 Prolene suture. On completion of the anastomosis the inflow was open. 1.5 mm flow through was used during each the 2 anastomoses in order to assure patency and control the flow of blood during grafting. We'll both times the flow through was removed without difficulty on completion of the anastomosis. The completed anastomosis of the distal SEXTON to the LAD graft was examined and noted to lay well, with more than adequate length throughout. The SUZETTE pedicle was tacked surrounding epicardium with 6-0 silk. Next the inferior wall was exposed. The PDA was a diseased vessel which was small distally. It was dissected out proximally and felt to be graftable. Piece of saphenous vein was cut to appropriate length and loaded on passport anastomotic connector. Was attached to the ascending aorta and blood flow was excellent. It was controlled with a bulldog clamp. The inferior wall was again exposed and the PDA stabilized. The PDA was opened proximally and blood flow control with a 1.5 mm flow through. It was a 1.5 mm vessel. Anastomosis of the saphenous vein to the PDA in end-to-side fashion was performed with running 8-0 Prolene suture. On completion anastomosis flow through was removed effectively probing the proximal distal portion of the anastomosis. Suture was tied with good result and hemostasis and the inflow was open. Next the high lateral wall was exposed. The distal circumflex branches had been visualized and were felt to be inadequate for grafting. They were 1 mm or smaller in diameter. The high obtuse marginal vessel was a good vessel. It was stabilized and opened. It was 1.75 mm diameter. Blood flow was controlled 1.5 mm flow through. The left radial artery was anastomosed in end-to-side fashion with running 7-0 Prolene suture. On completion the anastomosis the flow through was removed 50 probe the proximal distal portion anastomosis. Suture was tied with good result and hemostasis. Good backbleeding was noted from the radial controlled with a bulldog clamp. Now bulldog clamps were placed proximally and distally on the right coronary graft. Small opening was made just distal to the passport anastomotic connector in a longitudinal fashion. Proximal anastomosis of the radial was sewn to this with a running 7- 0 Prolene suture. On completion of the anastomosis it was de-aired by backbleeding. Suture was tied with good result and hemostasis and the inflow open. Good hemostasis was obtained throughout. The grafts were appropriately tacked to the RV outflow tract and pulmonary artery in order to allow a nice lay of both the radial and the PDA graft. Heparin was now reversed with protamine. Good hemostasis was noted throughout. Chest was irrigated with antibiotic solution. Mediastinum was drained with 36 -Bengali chest tube. Sternum was closed with 8 sternal wires. Fascia was closed with 0 Ethibond. Subcutaneous and subcuticular layers were closed with layers of Vicryl suture. The leg was also closed with layers of Vicryl suture. The R Minardi been closed and tucked at the side prior to starting the grafting portion of the procedure. Dry sterile dressings were applied and the patient was transferred to CV ICU in stable condition. No inotropic support was needed throughout the case. No blood transfusions were required. The patient did receive 450 mL of Cell Saver.
[2018-01-18] MEDS ORDERED: ALBUMIN HUMAN 5% 250 ML in EMPTY BAG 1 BAG IVPB STA (13:11)
[2018-01-18] MEDS: DILTIAZEM 50 MG in SODIUM CHLORIDE 0.9% 40 ML IV SCH ×2 (13:25→20:18)
[2018-01-18] MEDS ORDERED: Potassium Replacement Protocol 1 EACH MISC MISCELLANE PRN (13:40)
[2018-01-18] MEDS ORDERED: Magnesium Replacement Protocol 1 EACH MISC MISCELLANE PRN (13:40)
[2018-01-18] MEDS ORDERED: PROPOFOL 1,000 MG in EMPTY BAG 1 BAG IV SCH (13:40)
[2018-01-18] MEDS ORDERED: CALCIUM CHLORIDE 1,000 MG in SODIUM CHLORIDE 0.9% 100 ML IV PRN (13:40)
[2018-01-18] MEDS ORDERED: DEXTROSE 5% IN WATER 100 ML with AMIODARONE 150 MG IV PRN (13:40)
[2018-01-18] MEDS ORDERED: Phosphorus Replacement Protoco 1 EACH MISC MISCELLANE PRN (13:40)
[2018-01-18] MEDS: LACTATED RINGERS 1,000 ML IV SCH (13:40)
[2018-01-18] MEDS ORDERED: IPRATROPIUM-ALBUTEROL 3 ML NEB INHALATION PRN (13:40)
[2018-01-18] MEDS ORDERED: BENZOCAINE/MENTHOL LOZENG 1 EACH LOZENGE MUCOUS MEM PRN (13:40)
[2018-01-18] MEDS ORDERED: METOCLOPRAMIDE 5 MG/ML 2 ML VIAL IVP PRN (13:40)
[2018-01-18] MEDS ORDERED: ONDANSETRON 4 MG/2 ML VIAL IVP PRN (13:40)
[2018-01-18 13:45] LABS: Glucose,Whole Blood 129 mg/dL (75-99)
[2018-01-18 13:52] LABS: Basophils % (A) 0 %; Eosinophils # (A) 0.1 k/uL (0-0.7); Eosinophils % (A) 1 %; HCT 37.5 % (39.0-53.0); Lymphocytes # (A) 1.2 k/uL (1.0-4.8); Lymphocytes % (A) 7 %; MCH 29.9 pg (25.0-35.0); MCHC 32.2 g/dL (31.0-37.0); MCV 92.8 fL (80.0-100.0); Mean Platelet Volume 6.7; Monocytes # (A) 0.4 k/uL (0-1.0); Monocytes % (A) 3 %; Neutrophils # (A) 15.2 k/uL (1.3-7.7); Neutrophils % (A) 90 %; Platelet Count 165 k/uL (150-450); RBC 4.04 m/uL (4.30-5.90); WBC 16.9 k/uL (3.8-10.6)
[2018-01-18 13:59] LABS: HGB 12.1 gm/dL (13.0-17.5)
[2018-01-18 14:00] LABS: Ionized Calcium 5.2 mg/dL (4.5-5.3)
[2018-01-18] MEDS: INSULIN REGULAR 100 UNIT in SODIUM CHLORIDE 0.9% 100 ML IV SCH (14:00)
[2018-01-18 14:02] LABS: INR 1.2 (<1.2); Partial Thromboplastin Time 25.1 sec (22.0-30.0); Prothrombin Time 11.6 sec (9.0-12.0)
--- NOTE | 2018-01-18 14:10 | XR ---
EXAMINATION TYPE: XR chest 1V portable DATE OF EXAM: 01/18/2018 COMPARISON: 01/09/2018 INDICATION: Postoperative cardiac surgery TECHNIQUE: Single frontal view of the chest is obtained. FINDINGS: The heart size is normal. The pulmonary vasculature is normal. Streak opacities in the left midlung. No pneumothorax is evident. Camden-Eebr catheter tip is in the main pulmonary artery region. Nasogastric tube tips in left upper qu adrant of the abdomen. Mediastinal and left-sided chest tubes are present. Endotracheal tube tip is a yoselin the kurt. IMPRESSION: 1. Streak atelectasis left midlung. 2. Multiple lines and catheters discussed above
[2018-01-18 14:18] LABS: ALT 42 U/L (21-72); AST 26 U/L (17-59); Albumin 3.3 g/dL (3.5-5.0); Alkaline Phosphatase 47 U/L (38-126); Anion Gap 7 mmol/L; Blood Urea Nitrogen 18 mg/dL (9-20); Calcium 8.5 mg/dL (8.4-10.2); Carbon Dioxide 20 mmol/L (22-30); Chloride 112 mmol/L (98-107); Glucose 123 mg/dL (74-99); Magnesium 2.1 mg/dL (1.6-2.3); Potassium 4.5 mmol/L (3.5-5.1); Sodium 139 mmol/L (137-145); Total Bilirubin 0.6 mg/dL (0.2-1.3); Total Protein 5.2 g/dL (6.3-8.2)
[2018-01-18 14:24] LABS: ABG Base Excess -4.8 mmol/L; ABG HCO3 22 mmol/L (21-25); ABG Oxygen Saturation 99.5 % (94-97); ABG PCO2 48 mmHg (35-45); ABG PH 7.27 (7.35-7.45); ABG PO2 173 mmHg (83-108); ABG TCO2 24 mmol/L (19-24)
[2018-01-18] MEDS ORDERED: DEXMEDETOMIDINE 400 MCG in SODIUM CHLORIDE 0.9% 100 ML IV SCH (14:30)
[2018-01-18 15:22] LABS: Glucose,Whole Blood 201 mg/dL (75-99)
--- NOTE | 2018-01-18 15:55 | P.CNPUL ---
History of Present Illness Consult date: 01/18/18 Requesting physician: Larry Saldana Reason for consult: other (Critical care/ventilator management) Chief complaint: Coronary artery disease History of present illness: This is a 67-year-old male patient was found to have multivessel coronary artery disease. The patient was having on and off chest pain and he underwent a outpatient cardiac stresses that came back abnormal and following that the patient underwent a cardiac catheterization that showed proximal LAD stenosis 50 %, diagonal stenosis 95%, circumflex stenosis 70% and total occlusion of the RCA. The patient has a normal ejection fraction with an ejection fraction of 55 %, mild MR, trace AR, trace TR. The patient is a lifetime nonsmoker. No known lung disease. Preoperative FEV1 is above 100% of predicted. He presented here today for an elective coronary artery bypass grafting that was performed by Dr. Saldana earlier this morning. He had undergone an off-pump coronary artery bypass grafting 4 with sequential SEXTON to the diagonal and LAD, left radial graft to the first obtuse marginal, saphenous vein graft to the posterior descending artery. He is seen upon arrival to the intensive care unit. He has a #9 endotracheal tube. He is currently on SIMV mode of 14, tidal volume 600, 100% FiO2 and a PEEP of 5. Arterial blood gases reveal a P O2 of 173, pCO2 48 and a pH of 7.27. White count 16.9. Hemoglobin 12.1. INR 1.2. Bicarb 20. Creatinine 0.80. He is currently on Dexmedetomidine at 0.4 mcg/kg/h. Insulin drip at 6 units per hour. Cardizem drip at 10 mg per hour. Maintenance lactated Ringer's at 50 MLS per hour. Current heart rate 60 sinus rhythm, blood pressure 131/72, PA pressure 45/27, CVP 24. Chest x-ray reveals streak atelectasis at the left midlung. Review of Systems ROS unobtainable: due to endotracheal tube Past Medical History Past Medical History: Coronary Artery Disease (CAD), Cancer, Hyperlipidemia, Hypertension Additional Past Medical History / Comment(s): HX BLADDER CA-finished BCG tx. 3- 4 weeks ago, HX OF RENAL CALCULUS yrs ago History of Any Multi-Drug Resistant Organisms: None Reported Past Surgical History: Bladder Surgery, Orthopedic Surgery Additional Past Surgical History / Comment(s): Arthroscopy L Shoulder x 2; Arthroscopy L Knee X 2; Wrist surg.; BLADDER SX X 6, MIRIAM THUMB JOINTS, 2 TRIGGER FINGERS Past Anesthesia/Blood Transfusion Reactions: Postoperative Nausea & Vomiting ( PONV) Smoking Status: Never smoker - Past Family History Mother Family Medical History: Coronary Artery Disease (CAD) Medications and Allergies Home Medications Medication Instructions Recorded Confirmed Type Aspirin 81 mg PO DAILY 06/04/14 01/18/18 History Rosuvastatin [Crestor] 10 mg PO MOWEFR 06/04/14 01/18/18 History Cyanocobalamin (Vitamin B-12) 2,000 mcg PO Q10D 01/03/18 01/18/18 History [Vitamin B-12] Metoprolol Tartrate [Lopressor] 12.5 mg PO BID 01/03/18 01/18/18 History Multivitamin [Men's Multi-Vitamin] 1 tab PO DAILY 01/13/18 01/18/18 History Allergies Allergy/AdvReac Type Severity Reaction Status Date / Time shellfish derived Allergy Anaphylaxis Verified 01/18/18 12:54 Physical Exam Vitals: Vital Signs Temp Pulse Pulse Resp BP BP Pulse Ox 01/18/18 14:30 60 100 01/18/18 14:15 61 97 01/18/18 14:00 58 L 100 01/18/18 13:45 56 L 100 01/18/18 13:40 100 01/18/18 13:28 56 L 100 01/18/18 05:56 96.9 F L 78 16 129/76 127/79 96 Intake and Output 01/18/18 01/18/18 01/18/18 06:59 14:59 22:59 Intake Total 34 1.195 Output Total 194 Balance -1905 1.195 Intake: IV 34 Intake, IV Titration 1.195 Amount Insulin Regular 100 unit 1.195 In Sodium Chloride 0.9% 100 ml @ Per Protocol IV .Q0M [facility] Rx#:[id number] Output: Urine 240 Estimated Blood Loss 1700 Other: Weight 116.2 kg ABP, PAP, CO, CI - Last 8 Hours Arterial Blood Pressure 131/72 Arterial Blood Pressure 128/75 Arterial Blood Pressure 121/65 Arterial Blood Pressure 118/61 Pulmonary Artery Pressure 45/27 Pulmonary Artery Pressure 41/27 Pulmonary Artery Pressure 37/21 Pulmonary Artery Pressure 34/20 Cardiac Output 6.1 Cardiac Output 6.1 Cardiac Output 6.1 Cardiac Output 6.1 GENERAL EXAM: Intubated, sedated. Comfortable in no apparent distress. HEAD: Normocephalic. EYES: Sluggish reaction of pupils, equal size. NOSE: Clear with pink turbinates. THROAT: Oral endotracheal tube in place. Yesterday tube in place. No erythema or exudates. NECK: Supple and can catheter in place. No masses, no JVD. CHEST: Sternal dressing dry and intact. Chest tube in place. Heart Hugger in place. LUNGS: Equal air entry with no crackles, wheeze, rhonchi or dullness. CVS: S1 and S2 normal with no audible murmur, regular rhythm. ABDOMEN: No hepatosplenomegaly, hypoactive bowel sounds, no guarding or rigidity. SPINE: No scoliosis or deformity SKIN: No rashes CENTRAL NERVOUS SYSTEM: No focal deficits, tone is normal in all 4 extremities. EXTREMITIES: There is no peripheral edema. No clubbing, no cyanosis. Peripheral pulses are intact. Left radial height dressing intact. Anatoly wrap in the lower extremities. Results - Laboratory Findings CBC and BMP: 01/18/18 13:40 01/18/18 13:40 ABG ABG pH 7.27 (7.35-7.45) L 01/18/18 14:18 ABG pCO2 48 mmHg (35-45) H 01/18/18 14:18 ABG pO2 173 mmHg (83-108) H 01/18/18 14:18 ABG O2 Saturation 99.5 % (94-97) H 01/18/18 14:18 PT/INR, D-dimer PT 11.6 sec (9.0-12.0) 01/18/18 13:40 INR 1.2 (<1.2) H 01/18/18 13:40 Abnormal lab findings: Abnormal Labs 01/10/18 01/18/18 01/18/18 11:52 08:37 10:25 WBC RBC Hgb Hct Neutrophils # INR ABG pH ABG pCO2 ABG pO2 204 H 186 H ABG O2 Saturation 99.7 H 99.5 H ABG Potassium 4.6 H 4.7 H ABG Ionized Calcium ABG Glucose 120 H Hemoglobin Chloride Carbon Dioxide Glucose POC Glucose (mg/dL) Total Protein Albumin Arterial Blood Potassium 4.6 H 4.7 H Arterial Blood Glucose 120 H Crossmatch See Detail 01/18/18 01/18/18 01/18/18 10:46 11:17 11:50 WBC RBC Hgb Hct Neutrophils # INR ABG pH 7.34 L ABG pCO2 ABG pO2 200 H 202 H 199 H ABG O2 Saturation 99.5 H 99.6 H 99.4 H ABG Potassium ABG Ionized Calcium 4.4 L ABG Glucose 129 H 121 H 120 H Hemoglobin 12.4 L 12.0 L 12.2 L Chloride Carbon Dioxide Glucose POC Glucose (mg/dL) Total Protein Albumin Arterial Blood Potassium Arterial Blood Glucose 129 H 121 H 120 H Crossmatch 01/18/18 01/18/18 01/18/18 12:25 13:40 13:40 WBC 16.9 H RBC 4.04 L Hgb 12.1 L D Hct 37.5 L Neutrophils # 15.2 H INR ABG pH 7.34 L ABG pCO2 ABG pO2 116 H ABG O2 Saturation 98.4 H ABG Potassium ABG Ionized Calcium ABG Glucose 121 H Hemoglobin 11.7 L Chloride 112 H Carbon Dioxide 20 L Glucose 123 H POC Glucose (mg/dL) Total Protein 5.2 L Albumin 3.3 L Arterial Blood Potassium Arterial Blood Glucose 121 H Crossmatch 01/18/18 01/18/18 01/18/18 13:40 13:42 14:18 WBC RBC Hgb Hct Neutrophils # INR 1.2 H ABG pH 7.27 L ABG pCO2 48 H ABG pO2 173 H ABG O2 Saturation 99.5 H ABG Potassium ABG Ionized Calcium ABG Glucose Hemoglobin Chloride Carbon Dioxide Glucose POC Glucose (mg/dL) 129 H Total Protein Albumin Arterial Blood Potassium Arterial Blood Glucose Crossmatch 01/18/18 15:10 WBC RBC Hgb Hct Neutrophils # INR ABG pH ABG pCO2 ABG pO2 ABG O2 Saturation ABG Potassium ABG Ionized Calcium ABG Glucose Hemoglobin Chloride Carbon Dioxide Glucose POC Glucose (mg/dL) 201 H Total Protein Albumin Arterial Blood Potassium Arterial Blood Glucose Crossmatch - Diagnostic Findings Chest x-ray: image reviewed Assessment and Plan Assessment: Impression: #1 Coronary artery disease, status post coronary artery bypass grafting 4 with sequential SEXTON to the diagonal and LAD, left radial artery graft to the first obtuse marginal, saphenous vein graft to posterior descending coronary artery. Postop day #0. #2 More motivated with history of bladder cancer status post transurethral resection bladder tumor followed by BCG treatment. #3 Hyperlipidemia. #4 History of nephrolithiasis. #5 Degenerative arthritis. Plan: The patient was seen and evaluated by Dr. Zamora. Chest x-ray, ABGs and labs were all reviewed. He did go ahead and adjust the patient's rate up to 18, switched to assist control mode, decrease FiO2 to 60%. Plan to follow early extubation protocol. Continue DuoNeb inhalations every 4 hours. Heparin for DVT prophylaxis. Protonix for GI prophylaxis. We'll continue to follow and make further recommendations based on his clinical status. I, the cosigning physician, performed a history & physical examination of the patient. Lungs sounds with few scattered rhonchi. Maintaining good O2 saturations in the 90s on 60% FiO2 on the mechanical ventilator. I discussed the assessment and plan of care with my nurse practitioner, Clarisse Taylor. I attest to the above consultation as dictated by her. Time with Patient: Greater than 30
[2018-01-18] MEDS: CLEVIDIPINE BUTYRATE 25 MG in EMPTY BAG 1 BAG IV SCH (16:00)
[2018-01-18] MEDS ORDERED: IPRATROPIUM-ALBUTEROL 3 ML NEB INHALATION SCH (16:00)
[2018-01-18 16:02] LABS: Glucose,Whole Blood 197 mg/dL (75-99)
[2018-01-18] MEDS: ceFAZolin IN SWFI 2 GM/20 ML SYRINGE IVP SCH ×2 (16:04→23:01)
[2018-01-18] MEDS: ALBUMIN HUMAN 5% 250 ML in EMPTY BAG 1 BAG IVPB PRN ×2 (16:47→17:00)
[2018-01-18 17:00] LABS: Basophils % (A) 0 %; Eosinophils # (A) 0.1 k/uL (0-0.7); Eosinophils % (A) 0 %; HCT 36.7 % (39.0-53.0); HGB 11.9 gm/dL (13.0-17.5); Lymphocytes # (A) 0.5 k/uL (1.0-4.8); Lymphocytes % (A) 3 %; MCH 30.1 pg (25.0-35.0); MCHC 32.5 g/dL (31.0-37.0); MCV 92.5 fL (80.0-100.0); Mean Platelet Volume 7.1; Monocytes # (A) 0.5 k/uL (0-1.0); Monocytes % (A) 3 %; Neutrophils # (A) 14.8 k/uL (1.3-7.7); Neutrophils % (A) 93 %; Platelet Count 162 k/uL (150-450); RBC 3.97 m/uL (4.30-5.90); RDW 12.9 % (11.5-15.5); WBC 15.9 k/uL (3.8-10.6)
[2018-01-18 17:02] LABS: Glucose,Whole Blood 172 mg/dL (75-99)
[2018-01-18] MEDS: ACETAMINOPHEN IV (For NPO) 1,000 MG in EMPTY BAG 1 BAG IVPB SCH ×2 (17:32→23:17)
[2018-01-18 18:02] LABS: Glucose,Whole Blood 144 mg/dL (75-99)
[2018-01-18 18:03] LABS: ABG Base Excess -3.6 mmol/L; ABG HCO3 22 mmol/L (21-25); ABG PCO2 40 mmHg (35-45); ABG PH 7.35 (7.35-7.45); ABG PO2 97 mmHg (83-108); ABG TCO2 23 mmol/L (19-24)
[2018-01-18 19:06] LABS: Glucose,Whole Blood 131 mg/dL (75-99)
[2018-01-18 19:15] LABS: Basophils % (A) 0 %; Eosinophils % (A) 0 %; HCT 34.8 % (39.0-53.0); HGB 11.6 gm/dL (13.0-17.5); Lymphocytes # (A) 0.4 k/uL (1.0-4.8); Lymphocytes % (A) 2 %; MCH 30.6 pg (25.0-35.0); MCHC 33.3 g/dL (31.0-37.0); MCV 92.1 fL (80.0-100.0); Mean Platelet Volume 6.8; Monocytes # (A) 0.7 k/uL (0-1.0); Monocytes % (A) 4 %; Neutrophils # (A) 17.2 k/uL (1.3-7.7); Neutrophils % (A) 93 %; Platelet Count 166 k/uL (150-450); RBC 3.78 m/uL (4.30-5.90); WBC 18.4 k/uL (3.8-10.6)
[2018-01-18] MEDS: IPRATROPIUM-ALBUTEROL 3 ML NEB INHALATION SCH ×2 (19:16→19:43)
[2018-01-18 19:37] LABS: ALT 38 U/L (21-72); AST 30 U/L (17-59); Albumin 3.7 g/dL (3.5-5.0); Alkaline Phosphatase 39 U/L (38-126); Anion Gap 8 mmol/L; Blood Urea Nitrogen 19 mg/dL (9-20); Calcium 8.7 mg/dL (8.4-10.2); Carbon Dioxide 22 mmol/L (22-30); Chloride 109 mmol/L (98-107); Glucose 122 mg/dL (74-99); Potassium 4.4 mmol/L (3.5-5.1); Sodium 139 mmol/L (137-145); Total Bilirubin 0.7 mg/dL (0.2-1.3); Total Protein 5.5 g/dL (6.3-8.2)
[2018-01-18 20:08] LABS: Glucose,Whole Blood 121 mg/dL (75-99)
[2018-01-18] MEDS: MUPIROCIN 2% OINT 22 GM TUBE NASAL SCH (20:17)
[2018-01-18] MEDS: HEPARIN SODIUM,PORCINE 5,000 UNIT/ML 1 ML VIAL SQ SCH (20:17)
[2018-01-18] MEDS ORDERED: MUPIROCIN 2% OINT 22 GM TUBE NASAL ONE (20:45)
[2018-01-18 21:04] LABS: Glucose,Whole Blood 125 mg/dL (75-99)
[2018-01-18 22:05] LABS: Glucose,Whole Blood 125 mg/dL (75-99)
[2018-01-18] MEDS: DILTIAZEM ORAL 30 MG TAB PO SCH (23:01)
[2018-01-18 23:08] LABS: Glucose,Whole Blood 129 mg/dL (75-99)
[2018-01-19 00:03] LABS: Glucose,Whole Blood 131 mg/dL (75-99)
[2018-01-19 00:59] LABS: Glucose,Whole Blood 126 mg/dL (75-99)
[2018-01-19 02:16] LABS: Glucose,Whole Blood 118 mg/dL (75-99)
[2018-01-19 03:05] LABS: Glucose,Whole Blood 120 mg/dL (75-99)
[2018-01-19 04:03] LABS: Glucose,Whole Blood 120 mg/dL (75-99)
[2018-01-19 04:27] LABS: Basophils % (A) 0 %; Eosinophils # (A) 0.1 k/uL (0-0.7); Eosinophils % (A) 0 %; HCT 35.4 % (39.0-53.0); HGB 11.5 gm/dL (13.0-17.5); Lymphocytes # (A) 0.7 k/uL (1.0-4.8); Lymphocytes % (A) 3 %; MCH 29.9 pg (25.0-35.0); MCHC 32.5 g/dL (31.0-37.0); MCV 91.9 fL (80.0-100.0); Mean Platelet Volume 7.2; Monocytes % (A) 5 %; Neutrophils # (A) 20.5 k/uL (1.3-7.7); Neutrophils % (A) 92 %; Platelet Count 175 k/uL (150-450); RBC 3.85 m/uL (4.30-5.90); RDW 13.2 % (11.5-15.5); WBC 22.3 k/uL (3.8-10.6)
[2018-01-19 04:31] LABS: INR 1.2 (<1.2); Partial Thromboplastin Time 24.6 sec (22.0-30.0); Prothrombin Time 11.7 sec (9.0-12.0)
[2018-01-19 04:37] LABS: ALT 36 U/L (21-72); AST 27 U/L (17-59); Albumin 3.3 g/dL (3.5-5.0); Alkaline Phosphatase 41 U/L (38-126); Anion Gap 9 mmol/L; Blood Urea Nitrogen 18 mg/dL (9-20); Calcium 8.6 mg/dL (8.4-10.2); Carbon Dioxide 22 mmol/L (22-30); Chloride 108 mmol/L (98-107); Glucose 115 mg/dL (74-99); Potassium 4.3 mmol/L (3.5-5.1); Sodium 139 mmol/L (137-145); Total Bilirubin 0.6 mg/dL (0.2-1.3); Total Protein 5.3 g/dL (6.3-8.2)
[2018-01-19 05:09] LABS: Glucose,Whole Blood 117 mg/dL (75-99)
[2018-01-19] MEDS: ACETAMINOPHEN IV (For NPO) 1,000 MG in EMPTY BAG 1 BAG IVPB SCH ×3 (06:18→18:55)
[2018-01-19] MEDS: DILTIAZEM ORAL 30 MG TAB PO SCH ×3 (06:19→18:11)
[2018-01-19 06:20] LABS: Glucose,Whole Blood 126 mg/dL (75-99)
[2018-01-19 07:01] LABS: Glucose,Whole Blood 132 mg/dL (75-99)
--- NOTE | 2018-01-19 07:19 | XR ---
EXAMINATION TYPE: XR chest 1V portable DATE OF EXAM: 01/19/2018 COMPARISON: NONE HISTORY: SOB, Follow Up FINDINGS: Indwelling tubes and catheters are unchanged. Linear atelectasis is noted about the left perihilar and right basilar regions are unchanged. Stable appearance of the cardio-mediastinal structures at this time. IMPRESSION: 1. Stable portable chest. Clinical correlation and follow up until resolution is recommended.
[2018-01-19] MEDS: ceFAZolin IN SWFI 2 GM/20 ML SYRINGE IVP SCH (07:39)
[2018-01-19] MEDS ORDERED: KETOROLAC 30 MG/ML 1 ML VIAL IVP SCH (08:00)
--- NOTE | 2018-01-19 08:02 | P.PN ---
Subjective Progress Note Date: 01/19/18 Principal diagnosis: Coronary artery disease. Previous medical history of hypertension, hyperlipidemia, family history of heart disease, and bladder cancer diagnosed in 2013, currently in remission with 1 round of chemo and current BCG therapy, obesity. Preoperative leukocytosis. POD #1 off-pump CABG 4 with sequential SEXTON to diagonal and LAD, left radial arterial graft to first obtuse marginal, reverse saphenous vein graft to posterior descending coronary artery with endovascular left greater saphenous vein and left radial harvest and intraoperative RADHA by anesthesia. The patient is currently sitting up in a recliner in no acute distress. Denies pain, shortness of breath. Was successfully extubated last night at 18:16. Hemodynamically stable on no vasopressors. No new complaints. Objective - Vital Signs Vital signs: Vital Signs Temp 99.5 F 01/19/18 04:00 Pulse 68 01/19/18 07:00 Resp 15 01/19/18 07:00 BP 129/76 01/18/18 05:56 Pulse Ox 96 01/19/18 07:00 Intake & Output 01/18/18 01/19/18 01/19/18 18:59 06:59 18:59 Intake Total 789.577 847.038 109 Output Total 2526 884 130 Balance -1736.423 -36.962 -21 Weight 116.2 kg 119.7 kg Intake: IV 770 778 59 Albumin Human 25% 50 ml @ 500 Per Protocol IV ONCE ONE Rx#:[id number] CO/CI 50 70 Lactated Ringers 1,000 ml 150 600 50 @ 50 mls/hr IV .Q20H NAIMA Rx#:[id number] Presure Bag 36 108 9 Intake, IV Titration 19.577 69.038 50 Amount Diltiazem 50 mg In Sodium 34.417 50 Chloride 0.9% 40 ml @ 5 MG/HR 5 mls/hr IV .Q10H NAIMA Rx#:[id number] Insulin Regular 100 unit 19.577 34.621 In Sodium Chloride 0.9% 100 ml @ Per Protocol IV .Q0M NAIMA Rx#:[id number] Output: Chest Tube Drainage 266 380 70 Left Pleural/Mediastinal 266 380 70 Urine 560 504 60 Estimated Blood Loss 1700 Other: Voiding Method Indwelling Catheter Indwelling Catheter ABP, PAP, CO, CI - Last Documented Arterial Blood Pressure 102/54 Pulmonary Artery Pressure 24/13 Cardiac Output 7.5 Cardiac Index 3.2 - Constitutional General appearance: Present: cooperative, no acute distress, obese - Respiratory Details: Lungs sounds diminished bilaterally. Respirations even, nonlabored. Currently on 4 L nasal cannula with oxygen saturations 97%. Able to achieve 1250 mL on his incentive spirometry. Effective cough. Left pleural/mediastinal chest tube to continuous wall suction, 240 mL serosanguineous drainage overnight, 650 mL since surgery, no air leak present. - Cardiovascular Details: S1, S2 present. Regular rate and rhythm, sinus rhythm on telemetry. Sternum stable. Palpable peripheral pulses bilaterally. Trace bilateral lower extremity edema present. No calf pain or tenderness noted. Right internal jugular Jones/Cordis, right radial arterial line present. Last CO/CI 7.5/3.2 on no inotropes. Heart hugger in place with patient demonstrating appropriate use. Antiembolism stockings, SCDs present. - Gastrointestinal Gastrointestinal Comment(s): Abdomen soft, nontender, nondistended. Hypoactive bowel sounds present 4 quadrants. Tolerating clear liquids. Denies flatus. - Genitourinary Genitourinary Comment(s): South present draining clear, yellow urine. Output 35-50 mL per hour overnight , total 317 mL in the last 8 hours. - Integumentary Integumentary Comment(s): Skin is warm and dry with evidence of good perfusion. Anterior chest incision well approximated and covered with dry intact dressing. Left lower extremity EVH site well approximated. Left radial harvest site well approximated, skin is warm and dry, patient has full mobility, Anatoly wrap present. - Neurologic Neurologic: Present: CNII-XII intact - Musculoskeletal Musculoskeletal: Present: gait normal, strength equal bilaterally - Psychiatric Psychiatric: Present: A&O x's 3, appropriate affect, intact judgment & insight - Allied health notes Allied health notes reviewed: nursing - Labs CBC & Chem 7: 01/19/18 04:05 01/19/18 04:05 Labs: Abnormal Lab Results - Last 24 Hours (Table) 01/10/18 01/18/18 01/18/18 Range/Units 11:52 08:37 10:25 WBC (3.8-10.6) k/uL RBC (4.30-5.90) m/uL Hgb (13.0-17.5) gm/dL Hct (39.0-53.0) % Neutrophils # (1.3-7.7) k/uL Lymphocytes # (1.0-4.8) k/uL INR (<1.2) ABG pH (7.35-7.45) ABG pCO2 (35-45) mmHg ABG pO2 204 H 186 H (83-108) mmHg ABG O2 Saturation 99.7 H 99.5 H (94-97) % ABG Potassium 4.6 H 4.7 H (3.4-4.5) mmol/L ABG Ionized Calcium (4.5-5.3) mg/dL ABG Glucose 120 H (75-99) mg/dL Hemoglobin (13.0-17.5) gm/dL Chloride (98-107) mmol/L Carbon Dioxide (22-30) mmol/L Glucose (74-99) mg/dL POC Glucose (mg/dL) (75-99) mg/dL Total Protein (6.3-8.2) g/dL Albumin (3.5-5.0) g/dL Arterial Blood Potassium 4.6 H 4.7 H (3.4-4.5) mmol/L Arterial Blood Glucose 120 H (75-99) mg/dL Crossmatch See Detail 01/18/18 01/18/18 01/18/18 Range/Units 10:46 11:17 11:50 WBC (3.8-10.6) k/uL RBC (4.30-5.90) m/uL Hgb (13.0-17.5) gm/dL Hct (39.0-53.0) % Neutrophils # (1.3-7.7) k/uL Lymphocytes # (1.0-4.8) k/uL INR (<1.2) ABG pH 7.34 L (7.35-7.45) ABG pCO2 (35-45) mmHg ABG pO2 200 H 202 H 199 H (83-108) mmHg ABG O2 Saturation 99.5 H 99.6 H 99.4 H (94-97) % ABG Potassium (3.4-4.5) mmol/L ABG Ionized Calcium 4.4 L (4.5-5.3) mg/dL ABG Glucose 129 H 121 H 120 H (75-99) mg/dL Hemoglobin 12.4 L 12.0 L 12.2 L (13.0-17.5) gm/dL Chloride (98-107) mmol/L Carbon Dioxide (22-30) mmol/L Glucose (74-99) mg/dL POC Glucose (mg/dL) (75-99) mg/dL Total Protein (6.3-8.2) g/dL Albumin (3.5-5.0) g/dL Arterial Blood Potassium (3.4-4.5) mmol/L Arterial Blood Glucose 129 H 121 H 120 H (75-99) mg/dL Crossmatch 01/18/18 01/18/18 01/18/18 Range/Units 12:25 13:40 13:40 WBC 16.9 H (3.8-10.6) k/uL RBC 4.04 L (4.30-5.90) m/uL Hgb 12.1 L D (13.0-17.5) gm/dL Hct 37.5 L (39.0-53.0) % Neutrophils # 15.2 H (1.3-7.7) k/uL Lymphocytes # (1.0-4.8) k/uL INR (<1.2) ABG pH 7.34 L (7.35-7.45) ABG pCO2 (35-45) mmHg ABG pO2 116 H (83-108) mmHg ABG O2 Saturation 98.4 H (94-97) % ABG Potassium (3.4-4.5) mmol/L ABG Ionized Calcium (4.5-5.3) mg/dL ABG Glucose 121 H (75-99) mg/dL Hemoglobin 11.7 L (13.0-17.5) gm/dL Chloride 112 H (98-107) mmol/L Carbon Dioxide 20 L (22-30) mmol/L Glucose 123 H (74-99) mg/dL POC Glucose (mg/dL) (75-99) mg/dL Total Protein 5.2 L (6.3-8.2) g/dL Albumin 3.3 L (3.5-5.0) g/dL Arterial Blood Potassium (3.4-4.5) mmol/L Arterial Blood Glucose 121 H (75-99) mg/dL Crossmatch 01/18/18 01/18/18 01/18/18 Range/Units 13:40 13:42 14:18 WBC (3.8-10.6) k/uL RBC (4.30-5.90) m/uL Hgb (13.0-17.5) gm/dL Hct (39.0-53.0) % Neutrophils # (1.3-7.7) k/uL Lymphocytes # (1.0-4.8) k/uL INR 1.2 H (<1.2) ABG pH 7.27 L (7.35-7.45) ABG pCO2 48 H (35-45) mmHg ABG pO2 173 H (83-108) mmHg ABG O2 Saturation 99.5 H (94-97) % ABG Potassium (3.4-4.5) mmol/L ABG Ionized Calcium (4.5-5.3) mg/dL ABG Glucose (75-99) mg/dL Hemoglobin (13.0-17.5) gm/dL Chloride (98-107) mmol/L Carbon Dioxide (22-30) mmol/L Glucose (74-99) mg/dL POC Glucose (mg/dL) 129 H (75-99) mg/dL Total Protein (6.3-8.2) g/dL Albumin (3.5-5.0) g/dL Arterial Blood Potassium (3.4-4.5) mmol/L Arterial Blood Glucose (75-99) mg/dL Crossmatch 01/18/18 01/18/18 01/18/18 Range/Units 15:10 16:01 16:45 WBC 15.9 H (3.8-10.6) k/uL RBC 3.97 L (4.30-5.90) m/uL Hgb 11.9 L (13.0-17.5) gm/dL Hct 36.7 L (39.0-53.0) % Neutrophils # 14.8 H (1.3-7.7) k/uL Lymphocytes # 0.5 L (1.0-4.8) k/uL INR (<1.2) ABG pH (7.35-7.45) ABG pCO2 (35-45) mmHg ABG pO2 (83-108) mmHg ABG O2 Saturation (94-97) % ABG Potassium (3.4-4.5) mmol/L ABG Ionized Calcium (4.5-5.3) mg/dL ABG Glucose (75-99) mg/dL Hemoglobin (13.0-17.5) gm/dL Chloride (98-107) mmol/L Carbon Dioxide (22-30) mmol/L Glucose (74-99) mg/dL POC Glucose (mg/dL) 201 H 197 H (75-99) mg/dL Total Protein (6.3-8.2) g/dL Albumin (3.5-5.0) g/dL Arterial Blood Potassium (3.4-4.5) mmol/L Arterial Blood Glucose (75-99) mg/dL Crossmatch 01/18/18 01/18/18 01/18/18 Range/Units 16:51 18:00 18:01 WBC (3.8-10.6) k/uL RBC (4.30-5.90) m/uL Hgb (13.0-17.5) gm/dL Hct (39.0-53.0) % Neutrophils # (1.3-7.7) k/uL Lymphocytes # (1.0-4.8) k/uL INR (<1.2) ABG pH (7.35-7.45) ABG pCO2 (35-45) mmHg ABG pO2 (83-108) mmHg ABG O2 Saturation 98.0 H (94-97) % ABG Potassium (3.4-4.5) mmol/L ABG Ionized Calcium (4.5-5.3) mg/dL ABG Glucose (75-99) mg/dL Hemoglobin (13.0-17.5) gm/dL Chloride (98-107) mmol/L Carbon Dioxide (22-30) mmol/L Glucose (74-99) mg/dL POC Glucose (mg/dL) 172 H 144 H (75-99) mg/dL Total Protein (6.3-8.2) g/dL Albumin (3.5-5.0) g/dL Arterial Blood Potassium (3.4-4.5) mmol/L Arterial Blood Glucose (75-99) mg/dL Crossmatch 01/18/18 01/18/18 01/18/18 Range/Units 19:00 19:00 19:04 WBC 18.4 H (3.8-10.6) k/uL RBC 3.78 L (4.30-5.90) m/uL Hgb 11.6 L (13.0-17.5) gm/dL Hct 34.8 L (39.0-53.0) % Neutrophils # 17.2 H (1.3-7.7) k/uL Lymphocytes # 0.4 L (1.0-4.8) k/uL INR (<1.2) ABG pH (7.35-7.45) ABG pCO2 (35-45) mmHg ABG pO2 (83-108) mmHg ABG O2 Saturation (94-97) % ABG Potassium (3.4-4.5) mmol/L ABG Ionized Calcium (4.5-5.3) mg/dL ABG Glucose (75-99) mg/dL Hemoglobin (13.0-17.5) gm/dL Chloride 109 H (98-107) mmol/L Carbon Dioxide (22-30) mmol/L Glucose 122 H (74-99) mg/dL POC Glucose (mg/dL) 131 H (75-99) mg/dL Total Protein 5.5 L (6.3-8.2) g/dL Albumin (3.5-5.0) g/dL Arterial Blood Potassium (3.4-4.5) mmol/L Arterial Blood Glucose (75-99) mg/dL Crossmatch 01/18/18 01/18/18 01/18/18 Range/Units 20:07 21:02 22:03 WBC (3.8-10.6) k/uL RBC (4.30-5.90) m/uL Hgb (13.0-17.5) gm/dL Hct (39.0-53.0) % Neutrophils # (1.3-7.7) k/uL Lymphocytes # (1.0-4.8) k/uL INR (<1.2) ABG pH (7.35-7.45) ABG pCO2 (35-45) mmHg ABG pO2 (83-108) mmHg ABG O2 Saturation (94-97) % ABG Potassium (3.4-4.5) mmol/L ABG Ionized Calcium (4.5-5.3) mg/dL ABG Glucose (75-99) mg/dL Hemoglobin (13.0-17.5) gm/dL Chloride (98-107) mmol/L Carbon Dioxide (22-30) mmol/L Glucose (74-99) mg/dL POC Glucose (mg/dL) 121 H 125 H 125 H (75-99) mg/dL Total Protein (6.3-8.2) g/dL Albumin (3.5-5.0) g/dL Arterial Blood Potassium (3.4-4.5) mmol/L Arterial Blood Glucose (75-99) mg/dL Crossmatch 01/18/18 01/19/18 01/19/18 Range/Units 23:06 00:02 00:57 WBC (3.8-10.6) k/uL RBC (4.30-5.90) m/uL Hgb (13.0-17.5) gm/dL Hct (39.0-53.0) % Neutrophils # (1.3-7.7) k/uL Lymphocytes # (1.0-4.8) k/uL INR (<1.2) ABG pH (7.35-7.45) ABG pCO2 (35-45) mmHg ABG pO2 (83-108) mmHg ABG O2 Saturation (94-97) % ABG Potassium (3.4-4.5) mmol/L ABG Ionized Calcium (4.5-5.3) mg/dL ABG Glucose (75-99) mg/dL Hemoglobin (13.0-17.5) gm/dL Chloride (98-107) mmol/L Carbon Dioxide (22-30) mmol/L Glucose (74-99) mg/dL POC Glucose (mg/dL) 129 H 131 H 126 H (75-99) mg/dL Total Protein (6.3-8.2) g/dL Albumin (3.5-5.0) g/dL Arterial Blood Potassium (3.4-4.5) mmol/L Arterial Blood Glucose (75-99) mg/dL Crossmatch 01/19/18 01/19/18 01/19/18 Range/Units 02:14 03:04 04:01 WBC (3.8-10.6) k/uL RBC (4.30-5.90) m/uL Hgb (13.0-17.5) gm/dL Hct (39.0-53.0) % Neutrophils # (1.3-7.7) k/uL Lymphocytes # (1.0-4.8) k/uL INR (<1.2) ABG pH (7.35-7.45) ABG pCO2 (35-45) mmHg ABG pO2 (83-108) mmHg ABG O2 Saturation (94-97) % ABG Potassium (3.4-4.5) mmol/L ABG Ionized Calcium (4.5-5.3) mg/dL ABG Glucose (75-99) mg/dL Hemoglobin (13.0-17.5) gm/dL Chloride (98-107) mmol/L Carbon Dioxide (22-30) mmol/L Glucose (74-99) mg/dL POC Glucose (mg/dL) 118 H 120 H 120 H (75-99) mg/dL Total Protein (6.3-8.2) g/dL Albumin (3.5-5.0) g/dL Arterial Blood Potassium (3.4-4.5) mmol/L Arterial Blood Glucose (75-99) mg/dL Crossmatch 01/19/18 01/19/18 01/19/18 Range/Units 04:05 04:05 04:05 WBC 22.3 H (3.8-10.6) k/uL RBC 3.85 L (4.30-5.90) m/uL Hgb 11.5 L (13.0-17.5) gm/dL Hct 35.4 L (39.0-53.0) % Neutrophils # 20.5 H (1.3-7.7) k/uL Lymphocytes # 0.7 L (1.0-4.8) k/uL INR 1.2 H (<1.2) ABG pH (7.35-7.45) ABG pCO2 (35-45) mmHg ABG pO2 (83-108) mmHg ABG O2 Saturation (94-97) % ABG Potassium (3.4-4.5) mmol/L ABG Ionized Calcium (4.5-5.3) mg/dL ABG Glucose (75-99) mg/dL Hemoglobin (13.0-17.5) gm/dL Chloride 108 H (98-107) mmol/L Carbon Dioxide (22-30) mmol/L Glucose 115 H (74-99) mg/dL POC Glucose (mg/dL) (75-99) mg/dL Total Protein 5.3 L (6.3-8.2) g/dL Albumin 3.3 L (3.5-5.0) g/dL Arterial Blood Potassium (3.4-4.5) mmol/L Arterial Blood Glucose (75-99) mg/dL Crossmatch 01/19/18 01/19/18 01/19/18 Range/Units 05:07 06:18 07:00 WBC (3.8-10.6) k/uL RBC (4.30-5.90) m/uL Hgb (13.0-17.5) gm/dL Hct (39.0-53.0) % Neutrophils # (1.3-7.7) k/uL Lymphocytes # (1.0-4.8) k/uL INR (<1.2) ABG pH (7.35-7.45) ABG pCO2 (35-45) mmHg ABG pO2 (83-108) mmHg ABG O2 Saturation (94-97) % ABG Potassium (3.4-4.5) mmol/L ABG Ionized Calcium (4.5-5.3) mg/dL ABG Glucose (75-99) mg/dL Hemoglobin (13.0-17.5) gm/dL Chloride (98-107) mmol/L Carbon Dioxide (22-30) mmol/L Glucose (74-99) mg/dL POC Glucose (mg/dL) 117 H 126 H 132 H (75-99) mg/dL Total Protein (6.3-8.2) g/dL Albumin (3.5-5.0) g/dL Arterial Blood Potassium (3.4-4.5) mmol/L Arterial Blood Glucose (75-99) mg/dL Crossmatch - Imaging and Cardiology Chest x-ray: report reviewed, image reviewed Assessment and Plan (1) Coronary artery disease Current Visit: Yes Status: Chronic Code(s): I25.10 - ATHSCL HEART DISEASE OF [place] CORONARY ARTERY W/O ANG PCTRS SNOMED Code(s): 47469843 (2) History of bladder cancer Current Visit: No Status: Resolved Code(s): Z85.51 - PERSONAL HISTORY OF MALIGNANT NEOPLASM OF BLADDER SNOMED Code(s): 260146883 (3) Family history of ischemic heart disease Current Visit: Yes Status: Chronic Code(s): Z82.49 - FAMILY HX OF ISCHEM HEART DIS AND OTH DIS OF THE CIRC SYS SNOMED Code(s): 767976761 (4) Hypercholesterolemia Current Visit: Yes Status: Chronic Code(s): E78.00 - PURE HYPERCHOLESTEROLEMIA, UNSPECIFIED SNOMED Code(s): 45098684 (5) Hypertension Current Visit: Yes Status: Chronic Code(s): I10 - ESSENTIAL (PRIMARY) HYPERTENSION SNOMED Code(s): 75740338 Plan: 1. Continue aspirin, statin, Plavix, beta harika. Will increase beta harika therapy as tolerated. 2. Wean O2 as tolerated. Encourage incentive spirometry 10 times every hour. 3. Increase activity, ambulate in room. PT/OT/cardiac rehab following. 4. Will monitor daily labs and chest x-rays. 5. Oral Cardizem started for radial artery spasm prophylaxis. Discontinue IV Cardizem. 6. Discontinue Jones-Eber catheter. Connect Cordis to continuous CVP monitoring. 7. GI prophylaxis with Protonix. DVT prophylaxis with subcu heparin and SCDs. 8. Bronchodilators per pulmonology. 9. Pain control with current medication regimen. Toradol added. 10. More recommendations to follow based on patient's progress. Time with Patient: Greater than 30
[2018-01-19] MEDS: HEPARIN SODIUM,PORCINE 5,000 UNIT/ML 1 ML VIAL SQ SCH ×2 (08:11→16:18)
[2018-01-19] MEDS: IPRATROPIUM-ALBUTEROL 3 ML NEB INHALATION SCH ×4 (08:11→20:56)
[2018-01-19] MEDS: CLOPIDOGREL 75 MG TAB PO SCH (08:12)
[2018-01-19] MEDS: ASPIRIN 325 MG TAB PO SCH (08:12)
[2018-01-19] MEDS: METOPROLOL TARTRATE 12.5 MG TAB PO SCH ×2 (08:13→20:45)
[2018-01-19] MEDS: MUPIROCIN 2% OINT 22 GM TUBE NASAL SCH ×2 (08:15→20:46)
[2018-01-19 08:17] LABS: Glucose,Whole Blood 187 mg/dL (75-99)
--- NOTE | 2018-01-19 08:26 | P.CONS ---
History of Present Illness - History of Present Illness History of present illness This gentleman is a 67-year-old gentleman who was having recurrent chest pain as an outpatient basis. And with further outpatient workup eventually led to a heart catheterization which she demonstrated stenosis in the LAD of 50%. Diagonal stenosis of 95%. Circumflex stenosis of 60-70% and total occlusion of the right coronary artery. The patient yesterday underwent coronary artery bypass with a SEXTON to the diagonal and LAD. Left radial arterial graft to the first obtuse marginal. Reverse saphenous vein graft to the posterior descending coronary artery with Endo vascular left greater saphenous vein and left radial harvest. Past medical history History of hypertension Hyperlipidemia Of bladder cancer diagnosed in 2013. Remote history of renal stone. Other surgeries include arthroscopy of the left shoulder. Arthroscopy of the left knee. A surgeries for bladder cancer. Medications Home Crestor 10 mg 3 days a week as patient has had problems with statins. Multiple vitamin daily Metoprolol 12.5 twice a day Vitamin B12 2000 units Aspirin 81 mg. ALLERGIES to shellfish Review of systems Other than the chest pain was unremarkable. Family history positive for coronary artery disease in the mother. Social history Patient is retired. There is no history of any excessive alcohol or smoking. Physical examination Patient is sitting up in chair in his room. He is alert and oriented. In no acute distress. Answering questions appropriately. Vital signs reveal a pulse of 67 and regular with respirations 15 and blood pressure 102/54. He is 96% saturated on 4 L nasal cannula. Last temperature 99.5. Lungs are generally clear although diminished. Heart tones were regular. No unusual abdominal pain or masses. Compression stockings intact. He is alert and oriented. No cranial nerve deficits. No focal weakness noted. Laboratory White count is 22.3 with a hemoglobin 11.5 and a platelet count of 175. INR is 1.2. Sodium was 139 with potassium 4.3. BUN is 18 with creatinine 0.91 given him a GFR of 87. Blood sugar this morning is 115. Albumin is 3.3. Calcium 8.6. Chest x-ray Showed stable appearance from previous. linear atelectasis of present left perihilar and right basilar areas. Impressions and plans Overall this 67-year-old gentleman is doing well post coronary artery bypass surgery as described above. Discussed with patient and nursing staff. He will remain on Accu-Cheks with coverage. Advance diet and activities as per surgery, pulmonary medicine and cardiology. Their notes a been regarded. Past Medical History Past Medical History: Coronary Artery Disease (CAD), Cancer, Hyperlipidemia, Hypertension Additional Past Medical History / Comment(s): HX BLADDER CA-finished BCG tx. 3- 4 weeks ago, HX OF RENAL CALCULUS yrs ago History of Any Multi-Drug Resistant Organisms: None Reported Past Surgical History: Bladder Surgery, Orthopedic Surgery Additional Past Surgical History / Comment(s): Arthroscopy L Shoulder x 2; Arthroscopy L Knee X 2; Wrist surg.; BLADDER SX X 6, MIRIAM THUMB JOINTS, 2 TRIGGER FINGERS Past Anesthesia/Blood Transfusion Reactions: Postoperative Nausea & Vomiting ( PONV) Smoking Status: Never smoker - Past Family History Mother Family Medical History: Coronary Artery Disease (CAD) Medications and Allergies Home Medications Medication Instructions Recorded Confirmed Type Aspirin 81 mg PO DAILY 06/04/14 01/18/18 History Rosuvastatin [Crestor] 10 mg PO MOWEFR 06/04/14 01/18/18 History Cyanocobalamin (Vitamin B-12) 2,000 mcg PO Q10D 01/03/18 01/18/18 History [Vitamin B-12] Metoprolol Tartrate [Lopressor] 12.5 mg PO BID 01/03/18 01/18/18 History Multivitamin [Men's Multi-Vitamin] 1 tab PO DAILY 01/13/18 01/18/18 History Allergies Allergy/AdvReac Type Severity Reaction Status Date / Time shellfish derived Allergy Anaphylaxis Verified 01/18/18 12:54 Physical Exam Vitals: Vital Signs Temp Pulse Resp Pulse Ox 01/19/18 07:00 68 15 96 01/19/18 06:30 68 20 95 01/19/18 06:00 74 21 95 01/19/18 05:30 69 15 92 L 01/19/18 05:00 69 14 93 L 01/19/18 04:30 70 15 93 L 01/19/18 04:00 99.5 F 71 18 91 L 01/19/18 03:30 71 15 91 L 01/19/18 03:00 70 15 96 01/19/18 02:30 72 13 96 01/19/18 02:00 72 12 96 01/19/18 01:30 74 13 97 01/19/18 01:00 74 15 97 01/19/18 00:30 76 15 96 08/30/18 00:00 77 17 97 01/18/18 23:30 77 16 96 01/18/18 23:00 79 12 96 01/18/18 22:30 78 15 96 01/18/18 22:00 80 13 97 01/18/18 21:30 78 15 97 01/18/18 21:00 79 18 98 01/18/18 20:30 78 15 97 01/18/18 20:03 72 01/18/18 20:00 99.5 F 77 14 97 01/18/18 19:43 74 01/18/18 19:30 72 15 97 01/18/18 19:00 74 97 01/18/18 18:30 72 98 01/18/18 18:16 98 01/18/18 18:15 71 99 01/18/18 18:00 72 100 01/18/18 17:45 73 100 01/18/18 17:30 72 100 01/18/18 17:15 68 100 01/18/18 17:00 69 100 01/18/18 16:45 68 100 01/18/18 16:30 68 100 01/18/18 16:15 67 100 01/18/18 16:00 65 99 01/18/18 15:45 66 100 01/18/18 15:30 65 100 01/18/18 15:15 64 99 01/18/18 15:00 64 96 01/18/18 14:45 63 99 01/18/18 14:30 60 100 01/18/18 14:15 61 97 01/18/18 14:00 58 L 16 100 01/18/18 13:45 56 L 100 01/18/18 13:40 100 01/18/18 13:28 56 L 100 Intake and Output 01/18/18 01/19/18 01/19/18 22:59 06:59 14:59 Intake Total 1084.839 517.776 109 Output Total 703 657 130 Balance 381.839 -139.224 -21 Intake: IV 1022 492 59 Albumin Human 25% 50 ml @ 500 Per Protocol IV ONCE ONE Rx#:[id number] CO/CI 100 20 Lactated Ringers 1,000 ml 350 400 50 @ 50 mls/hr IV .Q20H [facility] Rx#:[id number] Presure Bag 72 72 9 Intake, IV Titration 62.839 25.776 50 Amount Diltiazem 50 mg In Sodium 34.417 50 Chloride 0.9% 40 ml @ 5 MG/HR 5 mls/hr IV .Q10H [facility] Rx#:[id number] Insulin Regular 100 unit 28.422 25.776 In Sodium Chloride 0.9% 100 ml @ Per Protocol IV .Q0M [facility] Rx#:[id number] Output: Chest Tube Drainage 256 280 70 Left Pleural/Mediastinal 256 280 70 Urine 447 377 60 Other: Voiding Method Indwelling Catheter Indwelling Catheter Weight 119.7 kg ABP, PAP, CO, CI - Last 8 Hours Arterial Blood Pressure 102/54 Arterial Blood Pressure 113/56 Arterial Blood Pressure 134/56 Arterial Blood Pressure 133/57 Arterial Blood Pressure 130/56 Arterial Blood Pressure 131/59 Arterial Blood Pressure 129/59 Arterial Blood Pressure 120/54 Arterial Blood Pressure 126/57 Arterial Blood Pressure 109/54 Arterial Blood Pressure 111/52 Arterial Blood Pressure 118/55 Arterial Blood Pressure 120/55 Arterial Blood Pressure 119/54 Pulmonary Artery Pressure 24/13 Pulmonary Artery Pressure 24/15 Pulmonary Artery Pressure 32/15 Pulmonary Artery Pressure 37/18 Pulmonary Artery Pressure 36/17 Pulmonary Artery Pressure 37/19 Pulmonary Artery Pressure 37/19 Pulmonary Artery Pressure 35/20 Pulmonary Artery Pressure 33/17 Pulmonary Artery Pressure 34/17 Pulmonary Artery Pressure 32/17 Pulmonary Artery Pressure 32/16 Pulmonary Artery Pressure 33/17 Pulmonary Artery Pressure 33/16 Cardiac Output 7.5 Cardiac Output 7.5 Cardiac Output 7.5 Cardiac Output 7.5 Cardiac Output 7.5 Cardiac Output 7.5 Cardiac Output 7.5 Cardiac Output 7.8 Cardiac Output 7.8 Cardiac Output 7.8 Cardiac Output 7.8 Cardiac Output 7.8 Cardiac Output 7.8 Cardiac Output 7.8 Cardiac Index 3.2 Results CBC & Chem 7: 01/19/18 04:05 01/19/18 04:05 Labs: Abnormal Lab Results - Last 24 Hours (Table) 01/10/18 01/18/18 01/18/18 Range/Units 11:52 08:37 10:25 WBC (3.8-10.6) k/uL RBC (4.30-5.90) m/uL Hgb (13.0-17.5) gm/dL Hct (39.0-53.0) % Neutrophils # (1.3-7.7) k/uL Lymphocytes # (1.0-4.8) k/uL INR (<1.2) ABG pH (7.35-7.45) ABG pCO2 (35-45) mmHg ABG pO2 204 H 186 H (83-108) mmHg ABG O2 Saturation 99.7 H 99.5 H (94-97) % ABG Potassium 4.6 H 4.7 H (3.4-4.5) mmol/L ABG Ionized Calcium (4.5-5.3) mg/dL ABG Glucose 120 H (75-99) mg/dL Hemoglobin (13.0-17.5) gm/dL Chloride (98-107) mmol/L Carbon Dioxide (22-30) mmol/L Glucose (74-99) mg/dL POC Glucose (mg/dL) (75-99) mg/dL Total Protein (6.3-8.2) g/dL Albumin (3.5-5.0) g/dL Arterial Blood Potassium 4.6 H 4.7 H (3.4-4.5) mmol/L Arterial Blood Glucose 120 H (75-99) mg/dL Crossmatch See Detail 01/18/18 01/18/18 01/18/18 Range/Units 10:46 11:17 11:50 WBC (3.8-10.6) k/uL RBC (4.30-5.90) m/uL Hgb (13.0-17.5) gm/dL Hct (39.0-53.0) % Neutrophils # (1.3-7.7) k/uL Lymphocytes # (1.0-4.8) k/uL INR (<1.2) ABG pH 7.34 L (7.35-7.45) ABG pCO2 (35-45) mmHg ABG pO2 200 H 202 H 199 H (83-108) mmHg ABG O2 Saturation 99.5 H 99.6 H 99.4 H (94-97) % ABG Potassium (3.4-4.5) mmol/L ABG Ionized Calcium 4.4 L (4.5-5.3) mg/dL ABG Glucose 129 H 121 H 120 H (75-99) mg/dL Hemoglobin 12.4 L 12.0 L 12.2 L (13.0-17.5) gm/dL Chloride (98-107) mmol/L Carbon Dioxide (22-30) mmol/L Glucose (74-99) mg/dL POC Glucose (mg/dL) (75-99) mg/dL Total Protein (6.3-8.2) g/dL Albumin (3.5-5.0) g/dL Arterial Blood Potassium (3.4-4.5) mmol/L Arterial Blood Glucose 129 H 121 H 120 H (75-99) mg/dL Crossmatch 01/18/18 01/18/18 01/18/18 Range/Units 12:25 13:40 13:40 WBC 16.9 H (3.8-10.6) k/uL RBC 4.04 L (4.30-5.90) m/uL Hgb 12.1 L D (13.0-17.5) gm/dL Hct 37.5 L (39.0-53.0) % Neutrophils # 15.2 H (1.3-7.7) k/uL Lymphocytes # (1.0-4.8) k/uL INR (<1.2) ABG pH 7.34 L (7.35-7.45) ABG pCO2 (35-45) mmHg ABG pO2 116 H (83-108) mmHg ABG O2 Saturation 98.4 H (94-97) % ABG Potassium (3.4-4.5) mmol/L ABG Ionized Calcium (4.5-5.3) mg/dL ABG Glucose 121 H (75-99) mg/dL Hemoglobin 11.7 L (13.0-17.5) gm/dL Chloride 112 H (98-107) mmol/L Carbon Dioxide 20 L (22-30) mmol/L Glucose 123 H (74-99) mg/dL POC Glucose (mg/dL) (75-99) mg/dL Total Protein 5.2 L (6.3-8.2) g/dL Albumin 3.3 L (3.5-5.0) g/dL Arterial Blood Potassium (3.4-4.5) mmol/L Arterial Blood Glucose 121 H (75-99) mg/dL Crossmatch 01/18/18 01/18/18 01/18/18 Range/Units 13:40 13:42 14:18 WBC (3.8-10.6) k/uL RBC (4.30-5.90) m/uL Hgb (13.0-17.5) gm/dL Hct (39.0-53.0) % Neutrophils # (1.3-7.7) k/uL Lymphocytes # (1.0-4.8) k/uL INR 1.2 H (<1.2) ABG pH 7.27 L (7.35-7.45) ABG pCO2 48 H (35-45) mmHg ABG pO2 173 H (83-108) mmHg ABG O2 Saturation 99.5 H (94-97) % ABG Potassium (3.4-4.5) mmol/L ABG Ionized Calcium (4.5-5.3) mg/dL ABG Glucose (75-99) mg/dL Hemoglobin (13.0-17.5) gm/dL Chloride (98-107) mmol/L Carbon Dioxide (22-30) mmol/L Glucose (74-99) mg/dL POC Glucose (mg/dL) 129 H (75-99) mg/dL Total Protein (6.3-8.2) g/dL Albumin (3.5-5.0) g/dL Arterial Blood Potassium (3.4-4.5) mmol/L Arterial Blood Glucose (75-99) mg/dL Crossmatch 01/18/18 01/18/18 01/18/18 Range/Units 15:10 16:01 16:45 WBC 15.9 H (3.8-10.6) k/uL RBC 3.97 L (4.30-5.90) m/uL Hgb 11.9 L (13.0-17.5) gm/dL Hct 36.7 L (39.0-53.0) % Neutrophils # 14.8 H (1.3-7.7) k/uL Lymphocytes # 0.5 L (1.0-4.8) k/uL INR (<1.2) ABG pH (7.35-7.45) ABG pCO2 (35-45) mmHg ABG pO2 (83-108) mmHg ABG O2 Saturation (94-97) % ABG Potassium (3.4-4.5) mmol/L ABG Ionized Calcium (4.5-5.3) mg/dL ABG Glucose (75-99) mg/dL Hemoglobin (13.0-17.5) gm/dL Chloride (98-107) mmol/L Carbon Dioxide (22-30) mmol/L Glucose (74-99) mg/dL POC Glucose (mg/dL) 201 H 197 H (75-99) mg/dL Total Protein (6.3-8.2) g/dL Albumin (3.5-5.0) g/dL Arterial Blood Potassium (3.4-4.5) mmol/L Arterial Blood Glucose (75-99) mg/dL Crossmatch 01/18/18 01/18/18 01/18/18 Range/Units 16:51 18:00 18:01 WBC (3.8-10.6) k/uL RBC (4.30-5.90) m/uL Hgb (13.0-17.5) gm/dL Hct (39.0-53.0) % Neutrophils # (1.3-7.7) k/uL Lymphocytes # (1.0-4.8) k/uL INR (<1.2) ABG pH (7.35-7.45) ABG pCO2 (35-45) mmHg ABG pO2 (83-108) mmHg ABG O2 Saturation 98.0 H (94-97) % ABG Potassium (3.4-4.5) mmol/L ABG Ionized Calcium (4.5-5.3) mg/dL ABG Glucose (75-99) mg/dL Hemoglobin (13.0-17.5) gm/dL Chloride (98-107) mmol/L Carbon Dioxide (22-30) mmol/L Glucose (74-99) mg/dL POC Glucose (mg/dL) 172 H 144 H (75-99) mg/dL Total Protein (6.3-8.2) g/dL Albumin (3.5-5.0) g/dL Arterial Blood Potassium (3.4-4.5) mmol/L Arterial Blood Glucose (75-99) mg/dL Crossmatch 01/18/18 01/18/18 01/18/18 Range/Units 19:00 19:00 19:04 WBC 18.4 H (3.8-10.6) k/uL RBC 3.78 L (4.30-5.90) m/uL Hgb 11.6 L (13.0-17.5) gm/dL Hct 34.8 L (39.0-53.0) % Neutrophils # 17.2 H (1.3-7.7) k/uL Lymphocytes # 0.4 L (1.0-4.8) k/uL INR (<1.2) ABG pH (7.35-7.45) ABG pCO2 (35-45) mmHg ABG pO2 (83-108) mmHg ABG O2 Saturation (94-97) % ABG Potassium (3.4-4.5) mmol/L ABG Ionized Calcium (4.5-5.3) mg/dL ABG Glucose (75-99) mg/dL Hemoglobin (13.0-17.5) gm/dL Chloride 109 H (98-107) mmol/L Carbon Dioxide (22-30) mmol/L Glucose 122 H (74-99) mg/dL POC Glucose (mg/dL) 131 H (75-99) mg/dL Total Protein 5.5 L (6.3-8.2) g/dL Albumin (3.5-5.0) g/dL Arterial Blood Potassium (3.4-4.5) mmol/L Arterial Blood Glucose (75-99) mg/dL Crossmatch 01/18/18 01/18/18 01/18/18 Range/Units 20:07 21:02 22:03 WBC (3.8-10.6) k/uL RBC (4.30-5.90) m/uL Hgb (13.0-17.5) gm/dL Hct (39.0-53.0) % Neutrophils # (1.3-7.7) k/uL Lymphocytes # (1.0-4.8) k/uL INR (<1.2) ABG pH (7.35-7.45) ABG pCO2 (35-45) mmHg ABG pO2 (83-108) mmHg ABG O2 Saturation (94-97) % ABG Potassium (3.4-4.5) mmol/L ABG Ionized Calcium (4.5-5.3) mg/dL ABG Glucose (75-99) mg/dL Hemoglobin (13.0-17.5) gm/dL Chloride (98-107) mmol/L Carbon Dioxide (22-30) mmol/L Glucose (74-99) mg/dL POC Glucose (mg/dL) 121 H 125 H 125 H (75-99) mg/dL Total Protein (6.3-8.2) g/dL Albumin (3.5-5.0) g/dL Arterial Blood Potassium (3.4-4.5) mmol/L Arterial Blood Glucose (75-99) mg/dL Crossmatch 01/18/18 01/19/18 01/19/18 Range/Units 23:06 00:02 00:57 WBC (3.8-10.6) k/uL RBC (4.30-5.90) m/uL Hgb (13.0-17.5) gm/dL Hct (39.0-53.0) % Neutrophils # (1.3-7.7) k/uL Lymphocytes # (1.0-4.8) k/uL INR (<1.2) ABG pH (7.35-7.45) ABG pCO2 (35-45) mmHg ABG pO2 (83-108) mmHg ABG O2 Saturation (94-97) % ABG Potassium (3.4-4.5) mmol/L ABG Ionized Calcium (4.5-5.3) mg/dL ABG Glucose (75-99) mg/dL Hemoglobin (13.0-17.5) gm/dL Chloride (98-107) mmol/L Carbon Dioxide (22-30) mmol/L Glucose (74-99) mg/dL POC Glucose (mg/dL) 129 H 131 H 126 H (75-99) mg/dL Total Protein (6.3-8.2) g/dL Albumin (3.5-5.0) g/dL Arterial Blood Potassium (3.4-4.5) mmol/L Arterial Blood Glucose (75-99) mg/dL Crossmatch 01/19/18 01/19/18 01/19/18 Range/Units 02:14 03:04 04:01 WBC (3.8-10.6) k/uL RBC (4.30-5.90) m/uL Hgb (13.0-17.5) gm/dL Hct (39.0-53.0) % Neutrophils # (1.3-7.7) k/uL Lymphocytes # (1.0-4.8) k/uL INR (<1.2) ABG pH (7.35-7.45) ABG pCO2 (35-45) mmHg ABG pO2 (83-108) mmHg ABG O2 Saturation (94-97) % ABG Potassium (3.4-4.5) mmol/L ABG Ionized Calcium (4.5-5.3) mg/dL ABG Glucose (75-99) mg/dL Hemoglobin (13.0-17.5) gm/dL Chloride (98-107) mmol/L Carbon Dioxide (22-30) mmol/L Glucose (74-99) mg/dL POC Glucose (mg/dL) 118 H 120 H 120 H (75-99) mg/dL Total Protein (6.3-8.2) g/dL Albumin (3.5-5.0) g/dL Arterial Blood Potassium (3.4-4.5) mmol/L Arterial Blood Glucose (75-99) mg/dL Crossmatch 01/19/18 01/19/18 01/19/18 Range/Units 04:05 04:05 04:05 WBC 22.3 H (3.8-10.6) k/uL RBC 3.85 L (4.30-5.90) m/uL Hgb 11.5 L (13.0-17.5) gm/dL Hct 35.4 L (39.0-53.0) % Neutrophils # 20.5 H (1.3-7.7) k/uL Lymphocytes # 0.7 L (1.0-4.8) k/uL INR 1.2 H (<1.2) ABG pH (7.35-7.45) ABG pCO2 (35-45) mmHg ABG pO2 (83-108) mmHg ABG O2 Saturation (94-97) % ABG Potassium (3.4-4.5) mmol/L ABG Ionized Calcium (4.5-5.3) mg/dL ABG Glucose (75-99) mg/dL Hemoglobin (13.0-17.5) gm/dL Chloride 108 H (98-107) mmol/L Carbon Dioxide (22-30) mmol/L Glucose 115 H (74-99) mg/dL POC Glucose (mg/dL) (75-99) mg/dL Total Protein 5.3 L (6.3-8.2) g/dL Albumin 3.3 L (3.5-5.0) g/dL Arterial Blood Potassium (3.4-4.5) mmol/L Arterial Blood Glucose (75-99) mg/dL Crossmatch 01/19/18 01/19/18 01/19/18 Range/Units 05:07 06:18 07:00 WBC (3.8-10.6) k/uL RBC (4.30-5.90) m/uL Hgb (13.0-17.5) gm/dL Hct (39.0-53.0) % Neutrophils # (1.3-7.7) k/uL Lymphocytes # (1.0-4.8) k/uL INR (<1.2) ABG pH (7.35-7.45) ABG pCO2 (35-45) mmHg ABG pO2 (83-108) mmHg ABG O2 Saturation (94-97) % ABG Potassium (3.4-4.5) mmol/L ABG Ionized Calcium (4.5-5.3) mg/dL ABG Glucose (75-99) mg/dL Hemoglobin (13.0-17.5) gm/dL Chloride (98-107) mmol/L Carbon Dioxide (22-30) mmol/L Glucose (74-99) mg/dL POC Glucose (mg/dL) 117 H 126 H 132 H (75-99) mg/dL Total Protein (6.3-8.2) g/dL Albumin (3.5-5.0) g/dL Arterial Blood Potassium (3.4-4.5) mmol/L Arterial Blood Glucose (75-99) mg/dL Crossmatch
[2018-01-19] MEDS ORDERED: ATORVASTATIN 40 MG TAB PO SCH (09:00)
[2018-01-19] MEDS ORDERED: PANTOPRAZOLE 40 MG/10 ML VIAL IVP SCH (09:00)
[2018-01-19 09:12] LABS: Glucose,Whole Blood 140 mg/dL (75-99)
[2018-01-19] MEDS: LACTATED RINGERS 1,000 ML IV SCH (09:42)
--- NOTE | 2018-01-19 10:01 | P.CRDCN ---
History of Present Illness Consult date: 01/19/18 History of present illness: This is a 67-year-old gentleman with history of hypertension who was recently evaluated with cardiac catheterization because of chest pain and positive stress test. Patient was found have triple-vessel disease with total occlusion of the RCA and disease in the LAD and also diagonal branches. Circumflex has distal disease. Patient had aortic coronary bypass surgery with SEXTON to the LAD , free radial graft to diagonal/circumflex OM branch and a vein graft to the right coronary artery. Patient is hemodynamically stable. He is extubated. His cardiac index is about 2.2. His maintaining sinus rhythm. His lab work seemed to be stable. Review of Systems REVIEW OF SYSTEMS: CONSTITUTIONAL:. Patient is doing well. No complaints of fever or chills EYES: Denies diplopia, blurring of vision EARS, NOSE, MOUTH, THROAT: Denies headaches, denies sore throat. CARDIOVASCULAR: Postoperative discomfort RESPIRATORY: Denies shortness of breath, denies cough. GASTROINTESTINAL: Denies change in appetite, denies abdominal pain, denies diarrhea GENITOURINARY: Denies hematuria, denies infections. MUSKULOSKELETAL: Denies pain, denies swelling. Denies any cramps or claudication INTEGUMENTARY: Denies rash, denies eczema. NEUROLOGICAL: Denies focal weakness, or visual disturbance. Denies any dizziness or syncope PSYCHIATRIC: Denies anxiety, denies depression. HEMATOLOGIC/LYMPHATIC: Denies any bleeding, denies enlarged lymph nodes. Past Medical History Past Medical History: Coronary Artery Disease (CAD), Cancer, Hyperlipidemia, Hypertension Additional Past Medical History / Comment(s): HX BLADDER CA-finished BCG tx. 3- 4 weeks ago, HX OF RENAL CALCULUS yrs ago History of Any Multi-Drug Resistant Organisms: None Reported Past Surgical History: Bladder Surgery, Orthopedic Surgery Additional Past Surgical History / Comment(s): Arthroscopy L Shoulder x 2; Arthroscopy L Knee X 2; Wrist surg.; BLADDER SX X 6, MIRIAM THUMB JOINTS, 2 TRIGGER FINGERS Past Anesthesia/Blood Transfusion Reactions: Postoperative Nausea & Vomiting ( PONV) Smoking Status: Never smoker - Past Family History Mother Family Medical History: Coronary Artery Disease (CAD) Medications and Allergies Home Medications Medication Instructions Recorded Confirmed Type Aspirin 81 mg PO DAILY 06/04/14 01/18/18 History Rosuvastatin [Crestor] 10 mg PO MOWEFR 06/04/14 01/18/18 History Cyanocobalamin (Vitamin B-12) 2,000 mcg PO Q10D 01/03/18 01/18/18 History [Vitamin B-12] Metoprolol Tartrate [Lopressor] 12.5 mg PO BID 01/03/18 01/18/18 History Multivitamin [Men's Multi-Vitamin] 1 tab PO DAILY 01/13/18 01/18/18 History Allergies Allergy/AdvReac Type Severity Reaction Status Date / Time shellfish derived Allergy Anaphylaxis Verified 01/18/18 12:54 Physical Exam Vitals: Vital Signs Temp Pulse Resp Pulse Ox 01/19/18 09:00 68 19 97 01/19/18 08:30 67 19 96 01/19/18 08:24 69 01/19/18 08:11 67 01/19/18 08:00 68 23 98 01/19/18 07:30 70 19 97 01/19/18 07:00 68 15 96 01/19/18 06:30 68 20 95 01/19/18 06:00 74 21 95 01/19/18 05:30 69 15 92 L 01/19/18 05:00 69 14 93 L 01/19/18 04:30 70 15 93 L 01/19/18 04:00 99.5 F 71 18 91 L 01/19/18 03:30 71 15 91 L 01/19/18 03:00 70 15 96 01/19/18 02:30 72 13 96 01/19/18 02:00 72 12 96 01/19/18 01:30 74 13 97 01/19/18 01:00 74 15 97 01/19/18 00:30 76 15 96 01/19/18 00:00 77 17 97 01/18/18 23:30 77 16 96 01/18/18 23:00 79 12 96 01/18/18 22:30 78 15 96 01/18/18 22:00 80 13 97 01/18/18 21:30 78 15 97 01/18/18 21:00 79 18 98 01/18/18 20:30 78 15 97 01/18/18 20:03 72 01/18/18 20:00 99.5 F 77 14 97 01/18/18 19:43 74 01/18/18 19:30 72 15 97 01/18/18 19:00 74 97 08/29/18 18:30 72 98 01/18/18 18:16 98 01/18/18 18:15 71 99 01/18/18 18:00 72 100 01/18/18 17:45 73 100 01/18/18 17:30 72 100 01/18/18 17:15 68 100 01/18/18 17:00 69 100 01/18/18 16:45 68 100 01/18/18 16:30 68 100 01/18/18 16:15 67 100 01/18/18 16:00 65 99 01/18/18 15:45 66 100 01/18/18 15:30 65 100 01/18/18 15:15 64 99 01/18/18 15:00 64 96 01/18/18 14:45 63 99 01/18/18 14:30 60 100 01/18/18 14:15 61 97 01/18/18 14:00 58 L 16 100 01/18/18 13:45 56 L 100 01/18/18 13:40 100 01/18/18 13:28 56 L 100 Intake and Output 01/18/18 01/19/18 01/19/18 22:59 06:59 14:59 Intake Total 1084.839 517.776 198.312 Output Total 703 657 230 Balance 381.839 -139.224 -31.688 Intake: IV 1022 492 137 Albumin Human 25% 50 ml @ 500 Per Protocol IV ONCE ONE Rx#:[id number] CO/CI 100 20 Lactated Ringers 1,000 ml 350 400 110 @ 20 mls/hr IV .Q24H [facility] Rx#:[id number] Presure Bag 72 72 27 Intake, IV Titration 62.839 25.776 61.312 Amount Diltiazem 50 mg In Sodium 34.417 50 Chloride 0.9% 40 ml @ 5 MG/HR 5 mls/hr IV .Q10H [facility] Rx#:[id number] Insulin Regular 100 unit 28.422 25.776 11.312 In Sodium Chloride 0.9% 100 ml @ Per Protocol IV .Q0M [facility] Rx#:[id number] Output: Chest Tube Drainage 256 280 100 Left Pleural/Mediastinal 256 280 100 Urine 447 377 130 Other: Voiding Method Indwelling Catheter Indwelling Catheter Weight 119.7 kg ABP, PAP, CO, CI - Last 8 Hours Arterial Blood Pressure 122/56 Arterial Blood Pressure 117/56 Arterial Blood Pressure 111/55 Arterial Blood Pressure 120/60 Arterial Blood Pressure 102/54 Arterial Blood Pressure 113/56 Arterial Blood Pressure 134/56 Arterial Blood Pressure 133/57 Arterial Blood Pressure 130/56 Arterial Blood Pressure 131/59 Arterial Blood Pressure 129/59 Arterial Blood Pressure 120/54 Arterial Blood Pressure 126/57 Arterial Blood Pressure 109/54 Arterial Blood Pressure 111/52 Pulmonary Artery Pressure 24/13 Pulmonary Artery Pressure 28/17 Pulmonary Artery Pressure 27/16 Pulmonary Artery Pressure 25/15 Pulmonary Artery Pressure 24/13 Pulmonary Artery Pressure 24/15 Pulmonary Artery Pressure 32/15 Pulmonary Artery Pressure 37/18 Pulmonary Artery Pressure 36/17 Pulmonary Artery Pressure 37/19 Pulmonary Artery Pressure 37/19 Pulmonary Artery Pressure 35/20 Pulmonary Artery Pressure 33/17 Pulmonary Artery Pressure 34/17 Pulmonary Artery Pressure 32/17 Cardiac Output 7.5 Cardiac Output 7.5 Cardiac Output 7.5 Cardiac Output 7.5 Cardiac Output 7.5 Cardiac Output 7.5 Cardiac Output 7.5 Cardiac Output 7.5 Cardiac Output 7.5 Cardiac Output 7.5 Cardiac Output 7.5 Cardiac Output 7.8 Cardiac Output 7.8 Cardiac Output 7.8 Cardiac Output 7.8 Cardiac Index 3.2 GENERAL EXAM: Patient is alert and oriented and doesn't appear to be in any acute distress HEENT: Normocephalic. Normal reaction of pupils, equal size, normal range of extraocular motion. No erythema or exudates in the throat. NECK: No masses, no nuchal rigidity. CHEST: Postsurgical LUNGS: Equal air entry with no crackles or wheeze. HEART: S1 and S2 normal with no audible mumurs or gallops. Regular rhythm, femorals equal on both sides.. ABDOMEN: No hepatosplenomegaly, normal bowel sounds, no guarding or rigidity. SKIN: No rashes CENTRAL NERVOUS SYSTEM: No focal deficits. EXTREMITIES: No cyanosis, clubbing or edema. Results 01/19/18 04:05 01/19/18 04:05 Cardiac Enzymes 01/18/18 01/18/18 01/19/18 Range/Units 13:40 19:00 04:05 AST 26 30 27 (17-59) U/L Coagulation 01/18/18 01/19/18 Range/Units 13:40 04:05 PT 11.6 11.7 (9.0-12.0) sec APTT 25.1 24.6 (22.0-30.0) sec CBC 01/18/18 01/18/18 01/18/18 Range/Units 13:40 16:45 19:00 WBC 16.9 H 15.9 H 18.4 H (3.8-10.6) k/uL RBC 4.04 L 3.97 L 3.78 L (4.30-5.90) m/uL Hgb 12.1 L D 11.9 L 11.6 L (13.0-17.5) gm/dL Hct 37.5 L 36.7 L 34.8 L (39.0-53.0) % Plt Count 165 162 166 (150-450) k/uL 01/19/18 Range/Units 04:05 WBC 22.3 H (3.8-10.6) k/uL RBC 3.85 L (4.30-5.90) m/uL Hgb 11.5 L (13.0-17.5) gm/dL Hct 35.4 L (39.0-53.0) % Plt Count 175 (150-450) k/uL Comprehensive Metabolic Panel 01/18/18 01/18/18 01/19/18 Range/Units 13:40 19:00 04:05 Sodium 139 139 139 (137-145) mmol/L Potassium 4.5 4.4 4.3 (3.5-5.1) mmol/L Chloride 112 H 109 H 108 H (98-107) mmol/L Carbon Dioxide 20 L 22 22 (22-30) mmol/L BUN 18 19 18 (9-20) mg/dL Creatinine 0.80 0.90 0.91 (0.66-1.25) mg/dL Glucose 123 H 122 H 115 H (74-99) mg/dL Calcium 8.5 8.7 8.6 (8.4-10.2) mg/dL AST 26 30 27 (17-59) U/L ALT 42 38 36 (21-72) U/L Alkaline Phosphatase 47 39 41 (38-126) U/L Total Protein 5.2 L 5.5 L 5.3 L (6.3-8.2) g/dL Albumin 3.3 L 3.7 3.3 L (3.5-5.0) g/dL Current Medications Generic Name Dose Route Start Last Admin Trade Name Freq PRN Reason Stop Dose Admin Hydrocodone Bitart/Acetaminophen 2 each 01/19/18 23:00 Sebastian 5-325 PO Q4HR PRN Severe Pain Hydrocodone Bitart/Acetaminophen 1 each 01/19/18 23:00 Sebastian 5-325 PO Q4HR PRN Moderate Pain Albuterol/Ipratropium 3 ml 01/18/18 13:40 Duoneb 0.5 Mg-3 Mg/3 Ml Soln INHALATION RT-Q2H PRN Shortness Of Breath Or Wheezing Albuterol/Ipratropium 3 ml 01/18/18 18:48 01/19/18 08:11 Duoneb 0.5 Mg-3 Mg/3 Ml Soln INHALATION 3 ml RT-QID [facility] Administration Aspirin 325 mg 01/19/18 09:00 01/19/18 08:12 Aspirin PO 325 mg DAILY [facility] Administration Atorvastatin Calcium 40 mg 01/19/18 09:00 Lipitor PO DAILY [facility] Benzocaine/Menthol 1 each 01/18/18 13:40 Cepacol Lozenge MUCOUS MEM Q2H PRN Sore Throat Bisacodyl 10 mg 01/19/18 12:48 Dulcolax RECTAL DAILY PRN Constipation Clopidogrel Bisulfate 75 mg 01/19/18 09:00 01/19/18 08:12 Plavix PO 75 mg DAILY [facility] Administration Diltiazem HCl 30 mg 01/19/18 12:00 Cardizem Oral PO Q6HR [facility] Heparin Sodium (Porcine) 5,000 unit 01/18/18 20:48 01/19/18 08:11 Heparin SQ 5,000 unit Q8HR [facility] Administration Acetaminophen 1,000 mg/ IV 100 mls @ 400 mls/hr 01/18/18 18:00 01/19/18 06:18 Solution IVPB 01/19/18 18:01 400 mls/hr Q6HR [facility] Administration Albumin Human 250 ml/ IV 250 mls @ 250 mls/hr 01/18/18 13:40 01/18/18 17:00 Solution IVPB 01/20/18 13:41 250 mls/hr Q1HR PRN Administration For Volume Amiodarone HCl 150 mg/ 103 mls @ 618 mls/hr 01/18/18 13:40 Dextrose/Water IV .Q10M PRN Per protocol Protocol Calcium Chloride 1,000 mg/ 110 mls @ 100 mls/hr 01/18/18 13:40 Sodium Chloride IV 02/17/18 23:00 ONCE PRN Ionized Calcium less than 4.4 Clevidipine 25 mg/ IV Solution 50 mls @ 2 mls/hr 01/18/18 13:40 01/18/18 16: 00 IV Not Given .Q24H [facility] Protocol 1 MG/HR Insulin Human Regular 100 unit 101 mls @ 0 mls/hr 01/18/18 13:40 01/19/18 09: 11 / Sodium Chloride IV 3.5 unit/hr .Q0M [facility] 3.53 mls/hr Titration Protocol Per Protocol Lactated Ringer's 1,000 mls @ 20 mls/hr 01/18/18 13:40 01/19/18 09:42 Lactated Ringers IV 20 mls/hr .Q24H [facility] Administration Ketorolac Tromethamine 15 mg 01/19/18 08:00 01/19/18 08:13 Toradol IVP 01/23/18 08:01 15 mg Q6HR [facility] Administration Magnesium Hydroxide 2,400 mg 01/19/18 12:48 Milk Of Magnesia PO BID PRN Constipation Metoclopramide HCl 10 mg 01/18/18 13:40 Reglan IVP Q4H PRN Nausea And Vomiting Metoprolol Tartrate 12.5 mg 01/19/18 09:00 01/19/18 08:13 Lopressor PO 12.5 mg BID [facility] Administration Miscellaneous Information 1 each 01/18/18 13:40 Magnesium Per Protocol MISCELLANE DAILY PRN Per Protocol Protocol Miscellaneous Information 1 each 01/18/18 13:40 Phosphorus Per Protocol MISCELLANE DAILY PRN Per Protocol Protocol Miscellaneous Information 1 each 01/18/18 13:40 Potassium Per Protocol MISCELLANE DAILY PRN Per Protocol Protocol Multivitamins 1 each 01/19/18 12:00 Theragran PO DAILY@1200 [facility] Mupirocin 1 applic 01/18/18 21:00 01/19/18 08:15 Bactroban Oint NASAL 01/21/18 21:01 1 applic BID [facility] Administration Ondansetron HCl 4 mg 01/18/18 13:40 01/19/18 06:18 Zofran IVP 4 mg Q6HR PRN Administration Nausea And Vomiting Oxycodone HCl 10 mg 01/18/18 13:40 Oxyir PO 01/19/18 23:00 Q4H PRN Severe Pain Oxycodone HCl 5 mg 01/18/18 13:40 01/18/18 23:09 Oxyir PO 01/19/18 23:00 5 mg Q4H PRN Administration Moderate Pain Pantoprazole Sodium 40 mg 01/19/18 09:00 01/19/18 08:09 Protonix IVP 01/19/18 10:00 40 mg DAILY [facility] Administration Pantoprazole Sodium 40 mg 01/20/18 07:30 Protonix PO AC-BRKFST [facility] Senna/Docusate Sodium 2 each 01/19/18 21:00 Senokot-S PO HS [facility] Sodium Chloride 10 ml 01/18/18 21:00 01/19/18 07:39 Saline Flush IV 10 ml BID [facility] Administration Intake and Output 01/18/18 01/19/18 01/19/18 22:59 06:59 14:59 Intake Total 1084.839 517.776 198.312 Output Total 703 657 230 Balance 381.839 -139.224 -31.688 Intake: IV 1022 492 137 Albumin Human 25% 50 ml @ 500 Per Protocol IV ONCE ONE Rx#:[id number] CO/CI 100 20 Lactated Ringers 1,000 ml 350 400 110 @ 20 mls/hr IV .Q24H [facility] Rx#:[id number] Presure Bag 72 72 27 Intake, IV Titration 62.839 25.776 61.312 Amount Diltiazem 50 mg In Sodium 34.417 50 Chloride 0.9% 40 ml @ 5 MG/HR 5 mls/hr IV .Q10H [facility] Rx#:[id number] Insulin Regular 100 unit 28.422 25.776 11.312 In Sodium Chloride 0.9% 100 ml @ Per Protocol IV .Q0M [facility] Rx#:[id number] Output: Chest Tube Drainage 256 280 100 Left Pleural/Mediastinal 256 280 100 Urine 447 377 130 Other: Voiding Method Indwelling Catheter Indwelling Catheter Weight 119.7 kg 01/19/18 04:05 01/19/18 04:05 EKG Interpretations (text) Sinus rhythm Assessment and Plan (1) Status post aorto-coronary artery bypass graft Current Visit: Yes Status: Acute Code(s): Z95.1 - PRESENCE OF AORTOCORONARY BYPASS GRAFT SNOMED Code(s): 461177456 (2) Coronary artery disease Current Visit: Yes Status: Chronic Code(s): I25.10 - ATHSCL HEART DISEASE OF [place] CORONARY ARTERY W/O ANG PCTRS SNOMED Code(s): 49144812 (3) Hypercholesterolemia Current Visit: Yes Status: Chronic Code(s): E78.00 - PURE HYPERCHOLESTEROLEMIA, UNSPECIFIED SNOMED Code(s): 88437314 (4) Hypertension Current Visit: Yes Status: Chronic Code(s): I10 - ESSENTIAL (PRIMARY) HYPERTENSION SNOMED Code(s): 73093214 Plan: Continue current medical therapy. Increase activity and incentive spirometry. Resume beta blockers and lipid-lowering agents
[2018-01-19 10:04] LABS: Glucose,Whole Blood 137 mg/dL (75-99)
[2018-01-19 10:22] VITALS: BMI 33.4
[2018-01-19 11:16] LABS: Glucose,Whole Blood 110 mg/dL (75-99)
[2018-01-19] MEDS ORDERED: CRESTOR 10 MG PO SCH (12:00)
[2018-01-19 12:06] LABS: Glucose,Whole Blood 103 mg/dL (75-99)
[2018-01-19] MEDS: MULTIVITAMINS, THERA 1 EACH TAB PO SCH (12:06)
[2018-01-19] MEDS ORDERED: MAGNESIUM HYDROXIDE 2,400 MG/10 ML CUP PO PRN (12:48)
[2018-01-19] MEDS ORDERED: BISACODYL 10 MG SUPP RECTAL PRN (12:48)
--- NOTE | 2018-01-19 13:20 | P.PN ---
Subjective Progress Note Date: 01/19/18 Principal diagnosis: Status post CABG 4 postoperative day #1 This is a 67-year-old male patient was found to have multivessel coronary artery disease. The patient was having on and off chest pain and he underwent a outpatient cardiac stresses that came back abnormal and following that the patient underwent a cardiac catheterization that showed proximal LAD stenosis 50 %, diagonal stenosis 95%, circumflex stenosis 70% and total occlusion of the RCA. The patient has a normal ejection fraction with an ejection fraction of 55 %, mild MR, trace AR, trace TR. The patient is a lifetime nonsmoker. No known lung disease. Preoperative FEV1 is above 100% of predicted. He presented here today for an elective coronary artery bypass grafting that was performed by Dr. Saldana earlier this morning. He had undergone an off-pump coronary artery bypass grafting 4 with sequential SEXTON to the diagonal and LAD, left radial graft to the first obtuse marginal, saphenous vein graft to the posterior descending artery. He is seen upon arrival to the intensive care unit. He has a #9 endotracheal tube. He is currently on SIMV mode of 14, tidal volume 600, 100% FiO2 and a PEEP of 5. Arterial blood gases reveal a P O2 of 173, pCO2 48 and a pH of 7.27. White count 16.9. Hemoglobin 12.1. INR 1.2. Bicarb 20. Creatinine 0.80. He is currently on Dexmedetomidine at 0.4 mcg/kg/h. Insulin drip at 6 units per hour. Cardizem drip at 10 mg per hour. Maintenance lactated Ringer's at 50 MLS per hour. Current heart rate 60 sinus rhythm, blood pressure 131/72, PA pressure 45/27, CVP 24. Chest x-ray reveals streak atelectasis at the left midlung. Reevaluated today on 01/19/2018, patient is doing relatively well, extubated last night. Hours after his surgery uneventfully. He tolerated the extubation well. Chest x-ray today is reassuring. Clinically the patient is doing great. Denies any shortness of breath no cough no wheezing no chest pain. Labs were reviewed hemoglobin is 11.5 WBC count is 22.3. Basic metabolic profile and renal profile are normal. Objective - Vital Signs Vital signs: Vital Signs Temp 99.0 F 01/19/18 12:00 Pulse 79 08/30/18 13:00 Resp 18 01/19/18 13:00 BP 108/63 01/19/18 11:00 Pulse Ox 96 01/19/18 13:00 Intake & Output 01/18/18 01/19/18 01/19/18 18:59 06:59 18:59 Intake Total 789.577 847.038 342.312 Output Total 2526 884 1185 Balance -1736.423 -36.962 -842.688 Weight 116.2 kg 119.7 kg 119.7 kg Intake: IV 770 778 281 Albumin Human 25% 50 ml @ 500 Per Protocol IV ONCE ONE Rx#:[id number] CO/CI 50 70 Lactated Ringers 1,000 ml 150 600 230 @ 20 mls/hr IV .Q24H [facility] Rx#:[id number] Presure Bag 36 108 51 Intake, IV Titration 19.577 69.038 61.312 Amount Diltiazem 50 mg In Sodium 34.417 50 Chloride 0.9% 40 ml @ 5 MG/HR 5 mls/hr IV .Q10H [facility] Rx#:[id number] Insulin Regular 100 unit 19.577 34.621 11.312 In Sodium Chloride 0.9% 100 ml @ Per Protocol IV .Q0M [facility] Rx#:[id number] Output: Chest Tube Drainage 266 380 180 Left Pleural/Mediastinal 266 380 180 Urine 987 636 5552 Estimated Blood Loss 1700 Other: Voiding Method Indwelling Catheter Indwelling Catheter Indwelling Catheter ABP, PAP, CO, CI - Last Documented Arterial Blood Pressure 132/61 Pulmonary Artery Pressure 24/13 Cardiac Output 7.5 Cardiac Index 3.2 - Exam Physical Exam: 67-year-old white male in no distress. Head: Atraumatic, normocephalic. HEENT:[Neck is supple.] [No neck masses.] [No thyromegaly.] [No JVD.] PERRLA, EOMI, no icterus. Chest: [Slightly diminished breath sounds at the bases no rhonchi no wheezes. Chest tube in place and intact. Cardiac Exam: [Normal S1 and S2, no S3 gallop, no murmur.] Abdomen: [Soft, nontender, no megaly, no rebound, no guarding, normal bowel sounds.] Extremities: [No clubbing, no edema, no cyanosis.] Neurological Exam: [No focal neurologic deficit. Psychiatric: Normal mood affect and mental status examination. ] - Labs CBC & Chem 7: 01/19/18 04:05 01/19/18 04:05 Labs: Abnormal Lab Results - Last 24 Hours (Table) 01/10/18 01/18/18 01/18/18 Range/Units 11:52 13:40 13:40 WBC 16.9 H (3.8-10.6) k/uL RBC 4.04 L (4.30-5.90) m/uL Hgb 12.1 L D (13.0-17.5) gm/dL Hct 37.5 L (39.0-53.0) % Neutrophils # 15.2 H (1.3-7.7) k/uL Lymphocytes # (1.0-4.8) k/uL INR (<1.2) ABG pH (7.35-7.45) ABG pCO2 (35-45) mmHg ABG pO2 (83-108) mmHg ABG O2 Saturation (94-97) % Chloride 112 H (98-107) mmol/L Carbon Dioxide 20 L (22-30) mmol/L Glucose 123 H (74-99) mg/dL POC Glucose (mg/dL) (75-99) mg/dL Total Protein 5.2 L (6.3-8.2) g/dL Albumin 3.3 L (3.5-5.0) g/dL Crossmatch See Detail 01/18/18 01/18/18 01/18/18 Range/Units 13:40 13:42 14:18 WBC (3.8-10.6) k/uL RBC (4.30-5.90) m/uL Hgb (13.0-17.5) gm/dL Hct (39.0-53.0) % Neutrophils # (1.3-7.7) k/uL Lymphocytes # (1.0-4.8) k/uL INR 1.2 H (<1.2) ABG pH 7.27 L (7.35-7.45) ABG pCO2 48 H (35-45) mmHg ABG pO2 173 H (83-108) mmHg ABG O2 Saturation 99.5 H (94-97) % Chloride (98-107) mmol/L Carbon Dioxide (22-30) mmol/L Glucose (74-99) mg/dL POC Glucose (mg/dL) 129 H (75-99) mg/dL Total Protein (6.3-8.2) g/dL Albumin (3.5-5.0) g/dL Crossmatch 01/18/18 01/18/18 01/18/18 Range/Units 15:10 16:01 16:45 WBC 15.9 H (3.8-10.6) k/uL RBC 3.97 L (4.30-5.90) m/uL Hgb 11.9 L (13.0-17.5) gm/dL Hct 36.7 L (39.0-53.0) % Neutrophils # 14.8 H (1.3-7.7) k/uL Lymphocytes # 0.5 L (1.0-4.8) k/uL INR (<1.2) ABG pH (7.35-7.45) ABG pCO2 (35-45) mmHg ABG pO2 (83-108) mmHg ABG O2 Saturation (94-97) % Chloride (98-107) mmol/L Carbon Dioxide (22-30) mmol/L Glucose (74-99) mg/dL POC Glucose (mg/dL) 201 H 197 H (75-99) mg/dL Total Protein (6.3-8.2) g/dL Albumin (3.5-5.0) g/dL Crossmatch 01/18/18 01/18/18 01/18/18 Range/Units 16:51 18:00 18:01 WBC (3.8-10.6) k/uL RBC (4.30-5.90) m/uL Hgb (13.0-17.5) gm/dL Hct (39.0-53.0) % Neutrophils # (1.3-7.7) k/uL Lymphocytes # (1.0-4.8) k/uL INR (<1.2) ABG pH (7.35-7.45) ABG pCO2 (35-45) mmHg ABG pO2 (83-108) mmHg ABG O2 Saturation 98.0 H (94-97) % Chloride (98-107) mmol/L Carbon Dioxide (22-30) mmol/L Glucose (74-99) mg/dL POC Glucose (mg/dL) 172 H 144 H (75-99) mg/dL Total Protein (6.3-8.2) g/dL Albumin (3.5-5.0) g/dL Crossmatch 01/18/18 01/18/18 01/18/18 Range/Units 19:00 19:00 19:04 WBC 18.4 H (3.8-10.6) k/uL RBC 3.78 L (4.30-5.90) m/uL Hgb 11.6 L (13.0-17.5) gm/dL Hct 34.8 L (39.0-53.0) % Neutrophils # 17.2 H (1.3-7.7) k/uL Lymphocytes # 0.4 L (1.0-4.8) k/uL INR (<1.2) ABG pH (7.35-7.45) ABG pCO2 (35-45) mmHg ABG pO2 (83-108) mmHg ABG O2 Saturation (94-97) % Chloride 109 H (98-107) mmol/L Carbon Dioxide (22-30) mmol/L Glucose 122 H (74-99) mg/dL POC Glucose (mg/dL) 131 H (75-99) mg/dL Total Protein 5.5 L (6.3-8.2) g/dL Albumin (3.5-5.0) g/dL Crossmatch 01/18/18 01/18/18 01/18/18 Range/Units 20:07 21:02 22:03 WBC (3.8-10.6) k/uL RBC (4.30-5.90) m/uL Hgb (13.0-17.5) gm/dL Hct (39.0-53.0) % Neutrophils # (1.3-7.7) k/uL Lymphocytes # (1.0-4.8) k/uL INR (<1.2) ABG pH (7.35-7.45) ABG pCO2 (35-45) mmHg ABG pO2 (83-108) mmHg ABG O2 Saturation (94-97) % Chloride (98-107) mmol/L Carbon Dioxide (22-30) mmol/L Glucose (74-99) mg/dL POC Glucose (mg/dL) 121 H 125 H 125 H (75-99) mg/dL Total Protein (6.3-8.2) g/dL Albumin (3.5-5.0) g/dL Crossmatch 01/18/18 01/19/18 01/19/18 Range/Units 23:06 00:02 00:57 WBC (3.8-10.6) k/uL RBC (4.30-5.90) m/uL Hgb (13.0-17.5) gm/dL Hct (39.0-53.0) % Neutrophils # (1.3-7.7) k/uL Lymphocytes # (1.0-4.8) k/uL INR (<1.2) ABG pH (7.35-7.45) ABG pCO2 (35-45) mmHg ABG pO2 (83-108) mmHg ABG O2 Saturation (94-97) % Chloride (98-107) mmol/L Carbon Dioxide (22-30) mmol/L Glucose (74-99) mg/dL POC Glucose (mg/dL) 129 H 131 H 126 H (75-99) mg/dL Total Protein (6.3-8.2) g/dL Albumin (3.5-5.0) g/dL Crossmatch 01/19/18 01/19/18 01/19/18 Range/Units 02:14 03:04 04:01 WBC (3.8-10.6) k/uL RBC (4.30-5.90) m/uL Hgb (13.0-17.5) gm/dL Hct (39.0-53.0) % Neutrophils # (1.3-7.7) k/uL Lymphocytes # (1.0-4.8) k/uL INR (<1.2) ABG pH (7.35-7.45) ABG pCO2 (35-45) mmHg ABG pO2 (83-108) mmHg ABG O2 Saturation (94-97) % Chloride (98-107) mmol/L Carbon Dioxide (22-30) mmol/L Glucose (74-99) mg/dL POC Glucose (mg/dL) 118 H 120 H 120 H (75-99) mg/dL Total Protein (6.3-8.2) g/dL Albumin (3.5-5.0) g/dL Crossmatch 01/19/18 01/19/18 01/19/18 Range/Units 04:05 04:05 04:05 WBC 22.3 H (3.8-10.6) k/uL RBC 3.85 L (4.30-5.90) m/uL Hgb 11.5 L (13.0-17.5) gm/dL Hct 35.4 L (39.0-53.0) % Neutrophils # 20.5 H (1.3-7.7) k/uL Lymphocytes # 0.7 L (1.0-4.8) k/uL INR 1.2 H (<1.2) ABG pH (7.35-7.45) ABG pCO2 (35-45) mmHg ABG pO2 (83-108) mmHg ABG O2 Saturation (94-97) % Chloride 108 H (98-107) mmol/L Carbon Dioxide (22-30) mmol/L Glucose 115 H (74-99) mg/dL POC Glucose (mg/dL) (75-99) mg/dL Total Protein 5.3 L (6.3-8.2) g/dL Albumin 3.3 L (3.5-5.0) g/dL Crossmatch 01/19/18 01/19/18 01/19/18 Range/Units 05:07 06:18 07:00 WBC (3.8-10.6) k/uL RBC (4.30-5.90) m/uL Hgb (13.0-17.5) gm/dL Hct (39.0-53.0) % Neutrophils # (1.3-7.7) k/uL Lymphocytes # (1.0-4.8) k/uL INR (<1.2) ABG pH (7.35-7.45) ABG pCO2 (35-45) mmHg ABG pO2 (83-108) mmHg ABG O2 Saturation (94-97) % Chloride (98-107) mmol/L Carbon Dioxide (22-30) mmol/L Glucose (74-99) mg/dL POC Glucose (mg/dL) 117 H 126 H 132 H (75-99) mg/dL Total Protein (6.3-8.2) g/dL Albumin (3.5-5.0) g/dL Crossmatch 01/19/18 01/19/18 01/19/18 Range/Units 08:16 09:10 10:02 WBC (3.8-10.6) k/uL RBC (4.30-5.90) m/uL Hgb (13.0-17.5) gm/dL Hct (39.0-53.0) % Neutrophils # (1.3-7.7) k/uL Lymphocytes # (1.0-4.8) k/uL INR (<1.2) ABG pH (7.35-7.45) ABG pCO2 (35-45) mmHg ABG pO2 (83-108) mmHg ABG O2 Saturation (94-97) % Chloride (98-107) mmol/L Carbon Dioxide (22-30) mmol/L Glucose (74-99) mg/dL POC Glucose (mg/dL) 187 H 140 H 137 H (75-99) mg/dL Total Protein (6.3-8.2) g/dL Albumin (3.5-5.0) g/dL Crossmatch 01/19/18 01/19/18 Range/Units 11:15 12:04 WBC (3.8-10.6) k/uL RBC (4.30-5.90) m/uL Hgb (13.0-17.5) gm/dL Hct (39.0-53.0) % Neutrophils # (1.3-7.7) k/uL Lymphocytes # (1.0-4.8) k/uL INR (<1.2) ABG pH (7.35-7.45) ABG pCO2 (35-45) mmHg ABG pO2 (83-108) mmHg ABG O2 Saturation (94-97) % Chloride (98-107) mmol/L Carbon Dioxide (22-30) mmol/L Glucose (74-99) mg/dL POC Glucose (mg/dL) 110 H 103 H (75-99) mg/dL Total Protein (6.3-8.2) g/dL Albumin (3.5-5.0) g/dL Crossmatch Assessment and Plan Assessment: #1 Coronary artery disease, status post coronary artery bypass grafting 4 with sequential SEXTON to the diagonal and LAD, left radial artery graft to the first obtuse marginal, saphenous vein graft to posterior descending coronary artery. Postop day #1. #2 More motivated with history of bladder cancer status post transurethral resection bladder tumor followed by BCG treatment. #3 Hyperlipidemia. #4 History of nephrolithiasis. #5 Degenerative arthritis. #6 minimal postoperative atelectasis, expected postoperative findings, post CABG. Patient will continue incentive spirometry. Recommendation: Continue bronchodilators, incentive spirometry, early ambulation , overall the patient is doing great. Time with Patient: Less than 30
[2018-01-19 13:38] LABS: Glucose,Whole Blood 170 mg/dL (75-99)
[2018-01-19] MEDS: CLEVIDIPINE BUTYRATE 25 MG in EMPTY BAG 1 BAG IV SCH (13:40)
[2018-01-19] MEDS: KETOROLAC 30 MG/ML 1 ML VIAL IVP SCH ×2 (13:41→20:45)
[2018-01-19 14:23] LABS: Glucose,Whole Blood 168 mg/dL (75-99)
[2018-01-19 15:17] LABS: Glucose,Whole Blood 144 mg/dL (75-99)
[2018-01-19] MEDS: INSULIN REGULAR 100 UNIT in SODIUM CHLORIDE 0.9% 100 ML IV SCH (15:22)
[2018-01-19 16:22] LABS: Glucose,Whole Blood 123 mg/dL (75-99)
[2018-01-19 17:15] LABS: Glucose,Whole Blood 146 mg/dL (75-99)
[2018-01-19 18:30] LABS: Glucose,Whole Blood 134 mg/dL (75-99)
[2018-01-19 19:12] LABS: Glucose,Whole Blood 149 mg/dL (75-99)
[2018-01-19 20:41] LABS: Glucose,Whole Blood 136 mg/dL (75-99)
[2018-01-19] MEDS: CRESTOR 10MG PO SCH (20:44)
[2018-01-19] MEDS: SENNOSIDES-DOCUSATE SODIUM 1 EACH TAB PO SCH (20:44)
[2018-01-19 22:04] LABS: Glucose,Whole Blood 120 mg/dL (75-99)
[2018-01-19] MEDS: HYDROcodone/APAP 5-325MG 1 EACH TAB PO PRN (22:06)
[2018-01-19] MEDS ORDERED: HYDROcodone/APAP 5-325MG 1 EACH TAB PO PRN (23:00)
[2018-01-19 23:10] LABS: Glucose,Whole Blood 108 mg/dL (75-99)
[2018-01-20] MEDS: DILTIAZEM ORAL 30 MG TAB PO SCH ×5 (00:02→23:09)
[2018-01-20] MEDS: HEPARIN SODIUM,PORCINE 5,000 UNIT/ML 1 ML VIAL SQ SCH ×4 (00:02→23:09)
[2018-01-20 00:03] LABS: Glucose,Whole Blood 113 mg/dL (75-99)
[2018-01-20 02:28] LABS: Glucose,Whole Blood 135 mg/dL (75-99)
[2018-01-20] MEDS: KETOROLAC 30 MG/ML 1 ML VIAL IVP SCH ×4 (02:31→20:08)
[2018-01-20 03:16] LABS: Glucose,Whole Blood 127 mg/dL (75-99)
[2018-01-20 04:26] LABS: Glucose,Whole Blood 107 mg/dL (75-99)
[2018-01-20 04:37] LABS: Basophils % (A) 0 %; Eosinophils # (A) 0.7 k/uL (0-0.7); Eosinophils % (A) 6 %; HCT 31.4 % (39.0-53.0); HGB 10.1 gm/dL (13.0-17.5); Lymphocytes # (A) 1.2 k/uL (1.0-4.8); Lymphocytes % (A) 9 %; MCHC 32.1 g/dL (31.0-37.0); MCV 93.4 fL (80.0-100.0); Mean Platelet Volume 6.8; Monocytes # (A) 0.6 k/uL (0-1.0); Monocytes % (A) 4 %; Neutrophils % (A) 81 %; Platelet Count 138 k/uL (150-450); RBC 3.36 m/uL (4.30-5.90); RDW 13.5 % (11.5-15.5); WBC 13.6 k/uL (3.8-10.6)
[2018-01-20 04:42] LABS: Ionized Calcium 5.1 mg/dL (4.5-5.3)
[2018-01-20 04:55] LABS: Albumin 2.8 g/dL (3.5-5.0); Calcium 8.4 mg/dL (8.4-10.2); Magnesium 2.4 mg/dL (1.6-2.3); Potassium 4.2 mmol/L (3.5-5.1); Total Bilirubin 0.6 mg/dL (0.2-1.3); Total Protein 4.9 g/dL (6.3-8.2)
[2018-01-20 05:37] LABS: Glucose,Whole Blood 106 mg/dL (75-99)
[2018-01-20 06:41] LABS: Glucose,Whole Blood 123 mg/dL (75-99)
[2018-01-20] MEDS: HYDROcodone/APAP 5-325MG 1 EACH TAB PO PRN (06:45)
[2018-01-20] MEDS: IPRATROPIUM-ALBUTEROL 3 ML NEB INHALATION SCH ×4 (07:00→20:27)
--- NOTE | 2018-01-20 07:16 | XR ---
EXAMINATION TYPE: XR chest 1V portable DATE OF EXAM: 01/20/2018 Comparison: 01/19/2018 Clinical History: 67-year-old male Post Operative Cardiac Surgery Findings: Right IJ sheath remains in place. [place] catheter has been removed. Heart remains borderline enlar ged. Median sternotomy wires are present with post-CABG clips in the mediastinum. Mediastinal drain r emains in place. A left chest tube is also present. Some minimal patchy retrocardiac an left suprahil ar opacity remains, likely atelectasis. No significant pleural effusion or pneumothorax. Impression: Some residual patchy retrocardiac and left suprahilar opacity, likely atelectasis.
[2018-01-20] MEDS: ASPIRIN 325 MG TAB PO SCH (07:39)
[2018-01-20] MEDS: PANTOPRAZOLE 40 MG TABLET PO SCH (07:39)
[2018-01-20] MEDS: METOPROLOL TARTRATE 12.5 MG TAB PO SCH ×2 (07:39→20:07)
[2018-01-20] MEDS: CLOPIDOGREL 75 MG TAB PO SCH (07:40)
[2018-01-20] MEDS: MUPIROCIN 2% OINT 22 GM TUBE NASAL SCH (07:46)
--- NOTE | 2018-01-20 08:24 | P.PN ---
Subjective Progress Note Date: 01/20/18 Principal diagnosis: Coronary artery disease. Previous medical history of hypertension, hyperlipidemia, family history of heart disease, and bladder cancer diagnosed in 2013, currently in remission with 1 round of chemo and current BCG therapy, obesity. Preoperative leukocytosis. POD #2 off-pump CABG 4 with sequential SEXTON to diagonal and LAD, left radial arterial graft to first obtuse marginal, reverse saphenous vein graft to posterior descending coronary artery with endovascular left greater saphenous vein and left radial harvest and intraoperative RADHA by anesthesia. The patient is currently sitting up in a recliner in no acute distress. Denies pain, shortness of breath. Hemodynamically stable on no vasopressors. No new complaints except did not sleep very well last night. Patient is ambulated in the hallway without difficulty. Objective - Vital Signs Vital signs: Vital Signs Temp 99.4 F 01/20/18 08:00 Pulse 83 01/20/18 08:00 Resp 17 01/20/18 08:00 BP 107/62 01/20/18 08:00 Pulse Ox 93 L 01/20/18 08:00 Intake & Output 01/19/18 01/20/18 01/20/18 18:59 06:59 18:59 Intake Total 545.873 455.937 62 Output Total 2125 935 100 Balance -1579.127 -479.063 -38 Weight 119.7 kg 113.4 kg Intake: IV 461 422 62 ACETAMINOPHEN IV (For NPO 100 ) 1,000 mg In Empty Bag 1 bag @ 400 mls/hr IVPB Q6HR [facility] Rx#:[id number] Lactated Ringers 1,000 ml 380 250 50 @ 20 mls/hr IV .Q24H [facility] Rx#:[id number] Presure Bag 81 72 12 Intake, IV Titration 84.873 33.937 Amount Diltiazem 50 mg In Sodium 50 Chloride 0.9% 40 ml @ 5 MG/HR 5 mls/hr IV .Q10H [facility] Rx#:[id number] Insulin Regular 100 unit 34.873 33.937 In Sodium Chloride 0.9% 100 ml @ Per Protocol IV .Q0M [facility] Rx#:[id number] Output: Chest Tube Drainage 260 180 50 Left Pleural/Mediastinal 260 180 50 Urine 1865 755 50 Other: Voiding Method Indwelling Catheter Indwelling Catheter ABP, PAP, CO, CI - Last Documented Arterial Blood Pressure 114/52 Pulmonary Artery Pressure 24/13 Cardiac Output 7.5 Cardiac Index 3.2 - Constitutional General appearance: Present: cooperative, no acute distress, obese - Respiratory Details: Lungs sounds diminished bilaterally. Respirations even, nonlabored. Currently on 2 L nasal cannula with oxygen saturations 95%. Able to achieve 2250 mL on his incentive spirometry. Effective cough. Left pleural/mediastinal chest tube to continuous wall suction, 100 mL serosanguineous drainage overnight, 350 mL in the last 24 hours, no air leak present. - Cardiovascular Details: S1, S2 present. Regular rate and rhythm, sinus rhythm on telemetry. Sternum stable. Palpable peripheral pulses bilaterally. Trace bilateral lower extremity edema present. No calf pain or tenderness noted. Right internal jugular Cordis, right radial arterial line present. Heart hugger in place with patient demonstrating appropriate use. Antiembolism stockings, SCDs present. - Gastrointestinal Gastrointestinal Comment(s): Abdomen soft, nontender, nondistended. Active bowel sounds present 4 quadrants. Tolerating diet. Positive flatus. - Genitourinary Genitourinary Comment(s): South discontinued this morning. Previously draining clear, yellow urine, output 30-60 mL/h overnight, 545 ml in the last 8 hours. - Integumentary Integumentary Comment(s): Skin is warm and dry with evidence of good perfusion. Anterior chest incision well approximated and covered with dry intact dressing. Left lower extremity EVH site well approximated. Left radial harvest site well approximated, skin is warm and dry, patient has full mobility. - Neurologic Neurologic: Present: CNII-XII intact - Musculoskeletal Musculoskeletal: Present: gait normal, strength equal bilaterally - Psychiatric Psychiatric: Present: A&O x's 3, appropriate affect, intact judgment & insight - Allied health notes Allied health notes reviewed: nursing - Labs CBC & Chem 7: 01/20/18 04:26 01/20/18 04:26 Labs: Abnormal Lab Results - Last 24 Hours (Table) 01/19/18 01/19/18 01/19/18 Range/Units 08:16 09:10 10:02 WBC (3.8-10.6) k/uL RBC (4.30-5.90) m/uL Hgb (13.0-17.5) gm/dL Hct (39.0-53.0) % Plt Count (150-450) k/uL Neutrophils # (1.3-7.7) k/uL Chloride (98-107) mmol/L BUN (9-20) mg/dL Glucose (74-99) mg/dL POC Glucose (mg/dL) 187 H 140 H 137 H (75-99) mg/dL Magnesium (1.6-2.3) mg/dL Total Protein (6.3-8.2) g/dL Albumin (3.5-5.0) g/dL 01/19/18 01/19/18 01/19/18 Range/Units 11:15 12:04 13:36 WBC (3.8-10.6) k/uL RBC (4.30-5.90) m/uL Hgb (13.0-17.5) gm/dL Hct (39.0-53.0) % Plt Count (150-450) k/uL Neutrophils # (1.3-7.7) k/uL Chloride (98-107) mmol/L BUN (9-20) mg/dL Glucose (74-99) mg/dL POC Glucose (mg/dL) 110 H 103 H 170 H (75-99) mg/dL Magnesium (1.6-2.3) mg/dL Total Protein (6.3-8.2) g/dL Albumin (3.5-5.0) g/dL 01/19/18 01/19/18 01/19/18 Range/Units 14:22 15:05 16:20 WBC (3.8-10.6) k/uL RBC (4.30-5.90) m/uL Hgb (13.0-17.5) gm/dL Hct (39.0-53.0) % Plt Count (150-450) k/uL Neutrophils # (1.3-7.7) k/uL Chloride (98-107) mmol/L BUN (9-20) mg/dL Glucose (74-99) mg/dL POC Glucose (mg/dL) 168 H 144 H 123 H (75-99) mg/dL Magnesium (1.6-2.3) mg/dL Total Protein (6.3-8.2) g/dL Albumin (3.5-5.0) g/dL 01/19/18 01/19/18 01/19/18 Range/Units 17:14 18:28 19:09 WBC (3.8-10.6) k/uL RBC (4.30-5.90) m/uL Hgb (13.0-17.5) gm/dL Hct (39.0-53.0) % Plt Count (150-450) k/uL Neutrophils # (1.3-7.7) k/uL Chloride (98-107) mmol/L BUN (9-20) mg/dL Glucose (74-99) mg/dL POC Glucose (mg/dL) 146 H 134 H 149 H (75-99) mg/dL Magnesium (1.6-2.3) mg/dL Total Protein (6.3-8.2) g/dL Albumin (3.5-5.0) g/dL 01/19/18 01/19/18 01/19/18 Range/Units 20:39 22:02 23:08 WBC (3.8-10.6) k/uL RBC (4.30-5.90) m/uL Hgb (13.0-17.5) gm/dL Hct (39.0-53.0) % Plt Count (150-450) k/uL Neutrophils # (1.3-7.7) k/uL Chloride (98-107) mmol/L BUN (9-20) mg/dL Glucose (74-99) mg/dL POC Glucose (mg/dL) 136 H 120 H 108 H (75-99) mg/dL Magnesium (1.6-2.3) mg/dL Total Protein (6.3-8.2) g/dL Albumin (3.5-5.0) g/dL 01/20/18 01/20/18 01/20/18 Range/Units 00:01 02:26 03:13 WBC (3.8-10.6) k/uL RBC (4.30-5.90) m/uL Hgb (13.0-17.5) gm/dL Hct (39.0-53.0) % Plt Count (150-450) k/uL Neutrophils # (1.3-7.7) k/uL Chloride (98-107) mmol/L BUN (9-20) mg/dL Glucose (74-99) mg/dL POC Glucose (mg/dL) 113 H 135 H 127 H (75-99) mg/dL Magnesium (1.6-2.3) mg/dL Total Protein (6.3-8.2) g/dL Albumin (3.5-5.0) g/dL 01/20/18 01/20/18 01/20/18 Range/Units 04:24 04:26 04:26 WBC 13.6 H (3.8-10.6) k/uL RBC 3.36 L (4.30-5.90) m/uL Hgb 10.1 L (13.0-17.5) gm/dL Hct 31.4 L (39.0-53.0) % Plt Count 138 L (150-450) k/uL Neutrophils # 11.0 H (1.3-7.7) k/uL Chloride 109 H (98-107) mmol/L BUN 21 H (9-20) mg/dL Glucose 103 H (74-99) mg/dL POC Glucose (mg/dL) 107 H (75-99) mg/dL Magnesium 2.4 H (1.6-2.3) mg/dL Total Protein 4.9 L (6.3-8.2) g/dL Albumin 2.8 L (3.5-5.0) g/dL 01/20/18 01/20/18 Range/Units 05:36 06:39 WBC (3.8-10.6) k/uL RBC (4.30-5.90) m/uL Hgb (13.0-17.5) gm/dL Hct (39.0-53.0) % Plt Count (150-450) k/uL Neutrophils # (1.3-7.7) k/uL Chloride (98-107) mmol/L BUN (9-20) mg/dL Glucose (74-99) mg/dL POC Glucose (mg/dL) 106 H 123 H (75-99) mg/dL Magnesium (1.6-2.3) mg/dL Total Protein (6.3-8.2) g/dL Albumin (3.5-5.0) g/dL - Imaging and Cardiology Chest x-ray: report reviewed, image reviewed Assessment and Plan (1) Coronary artery disease Current Visit: Yes Status: Chronic Code(s): I25.10 - ATHSCL HEART DISEASE OF [place] CORONARY ARTERY W/O ANG PCTRS SNOMED Code(s): 75562572 (2) History of bladder cancer Current Visit: No Status: Resolved Code(s): Z85.51 - PERSONAL HISTORY OF MALIGNANT NEOPLASM OF BLADDER SNOMED Code(s): 674488636 (3) Family history of ischemic heart disease Current Visit: Yes Status: Chronic Code(s): Z82.49 - FAMILY HX OF ISCHEM HEART DIS AND OTH DIS OF THE CIRC SYS SNOMED Code(s): 508722157 (4) Hypercholesterolemia Current Visit: Yes Status: Chronic Code(s): E78.00 - PURE HYPERCHOLESTEROLEMIA, UNSPECIFIED SNOMED Code(s): 21371392 (5) Hypertension Current Visit: Yes Status: Chronic Code(s): I10 - ESSENTIAL (PRIMARY) HYPERTENSION SNOMED Code(s): 67009781 Plan: 1. Continue aspirin, statin, Plavix, beta harika. Will increase beta harika therapy as tolerated. 2. Continue oral Cardizem for radial artery spasm prophylaxis. 2. Wean O2 as tolerated. Encourage incentive spirometry 10 times every hour. 3. Increase activity, ambulate in hallway. PT/OT/cardiac rehab following. 4. Will monitor daily labs and chest x-rays. 5. South discontinued. Bladder scan after each void or every 6 hours, straight cathed for greater than 300 mL. 6. Discontinue Cordis, arterial line. 7. Will discontinue mediastinal chest tubes, likely will discontinue left pleural chest tube 8. GI prophylaxis with Protonix. DVT prophylaxis with subcu heparin and SCDs. 9. Bronchodilators per pulmonology. 10. Insulin management per Dr. Calero. 11. Pain control with current medication regimen. 12. Will place transfer orders for 6 E. selective care when bed available. 13. More recommendations to follow based on patient's progress. Time with Patient: Greater than 30
[2018-01-20] MEDS ORDERED: ACETAMINOPHEN TAB 325 MG TAB PO PRN ×2 (08:26)
[2018-01-20 08:43] LABS: Glucose,Whole Blood 174 mg/dL (75-99)
--- NOTE | 2018-01-20 08:43 | P.PN ---
Progress Note - Text The patient is a 67-year-old gentleman who has undergone open heart surgery and coronary artery bypass a 2 days previous. Patient is sitting up in a chair in his room. Denies any unusual chest pain or shortness of breath. No nausea or vomiting at this time. Has been ambulating with assistance. He does have history of hypertension, hyperlipidemia. History of bladder cancer. Vital signs temperature 99.4 with a pulse of 83. Respirations 17. Blood pressure 107/62 and he is 93% saturated on 2 L. Lungs are generally clear. Heart tones regular. Abdomen nontender. He does have some ankle edema. Compression appliance is intact. He is alert and oriented. No cranial nerves are focal deficits noted. Laboratory White count 13.6 with a hemoglobin 10.1 and a platelet count of 138. Slight left shift of neutrophils 11.0. Electrolytes unremarkable. BUN of 21 with creatinine 1.1 given him a GFR of 69. Blood sugars been in the low 100s. Sometimes up to 120s. Albumin 2.8. Chest x-ray per report some some residual patchy retrocardiac and left suprahilar opacities. Likely atelectasis. Impressions and plans Patient is post open heart surgery. Generally appears to be doing well. Continue to progress as per surgery and cardiology. Discussed with patient and nursing staff this morning. Likely to DC his insulin drip and continue with Accu-Cheks and coverage.
--- NOTE | 2018-01-20 09:20 | P.PN ---
Subjective Progress Note Date: 01/20/18 This is a 67-year-old gentleman status post aortocoronary bypass surgery. Patient has been stable since last visit. No arrhythmias. Hemodynamically stable. Complaints of mild chest discomfort. Chest x-ray seemed to be clear of any CHF. Chest tubes will be removed today. Patient tolerating diet. Lab work is reviewed. Patient activity to be increased. Possible transfer to telemetry unit Objective - Vital Signs Vital signs: Vital Signs Temp 99.4 F 01/20/18 08:00 Pulse 83 01/20/18 08:00 Resp 17 01/20/18 08:00 BP 107/62 01/20/18 08:00 Pulse Ox 93 L 01/20/18 08:00 Intake & Output 01/19/18 01/20/18 01/20/18 18:59 06:59 18:59 Intake Total 545.873 455.937 62 Output Total 2125 935 100 Balance -1579.127 -479.063 -38 Weight 119.7 kg 113.4 kg Intake: IV 461 422 62 ACETAMINOPHEN IV (For NPO 100 ) 1,000 mg In Empty Bag 1 bag @ 400 mls/hr IVPB Q6HR [facility] Rx#:[id number] Lactated Ringers 1,000 ml 380 250 50 @ 20 mls/hr IV .Q24H [facility] Rx#:[id number] Presure Bag 81 72 12 Intake, IV Titration 84.873 33.937 Amount Diltiazem 50 mg In Sodium 50 Chloride 0.9% 40 ml @ 5 MG/HR 5 mls/hr IV .Q10H [facility] Rx#:[id number] Insulin Regular 100 unit 34.873 33.937 In Sodium Chloride 0.9% 100 ml @ Per Protocol IV .Q0M [facility] Rx#:[id number] Output: Chest Tube Drainage 260 180 50 Left Pleural/Mediastinal 260 180 50 Urine 1865 755 50 Other: Voiding Method Indwelling Catheter Indwelling Catheter ABP, PAP, CO, CI - Last Documented Arterial Blood Pressure 114/52 Pulmonary Artery Pressure 24/13 Cardiac Output 7.5 Cardiac Index 3.2 - Exam GENERAL EXAM: Patient is alert and oriented and doesn't appear to be in any acute distress HEENT: Normocephalic. Normal reaction of pupils, equal size, normal range of extraocular motion. No erythema or exudates in the throat. NECK: No masses, no nuchal rigidity. CHEST: Postsurgical LUNGS: Equal air entry with no crackles or wheeze. HEART: S1 and S2 normal with no audible mumurs or gallops. Regular rhythm, femorals equal on both sides.. ABDOMEN: No hepatosplenomegaly, normal bowel sounds, no guarding or rigidity. SKIN: No rashes CENTRAL NERVOUS SYSTEM: No focal deficits. EXTREMITIES: No cyanosis, clubbing or edema. - Labs CBC & Chem 7: 01/20/18 04:26 01/20/18 04:26 Labs: Abnormal Lab Results - Last 24 Hours (Table) 01/19/18 01/19/18 01/19/18 Range/Units 10:02 11:15 12:04 WBC (3.8-10.6) k/uL RBC (4.30-5.90) m/uL Hgb (13.0-17.5) gm/dL Hct (39.0-53.0) % Plt Count (150-450) k/uL Neutrophils # (1.3-7.7) k/uL Chloride (98-107) mmol/L BUN (9-20) mg/dL Glucose (74-99) mg/dL POC Glucose (mg/dL) 137 H 110 H 103 H (75-99) mg/dL Magnesium (1.6-2.3) mg/dL Total Protein (6.3-8.2) g/dL Albumin (3.5-5.0) g/dL 01/19/18 01/19/18 01/19/18 Range/Units 13:36 14:22 15:05 WBC (3.8-10.6) k/uL RBC (4.30-5.90) m/uL Hgb (13.0-17.5) gm/dL Hct (39.0-53.0) % Plt Count (150-450) k/uL Neutrophils # (1.3-7.7) k/uL Chloride (98-107) mmol/L BUN (9-20) mg/dL Glucose (74-99) mg/dL POC Glucose (mg/dL) 170 H 168 H 144 H (75-99) mg/dL Magnesium (1.6-2.3) mg/dL Total Protein (6.3-8.2) g/dL Albumin (3.5-5.0) g/dL 01/19/18 01/19/18 01/19/18 Range/Units 16:20 17:14 18:28 WBC (3.8-10.6) k/uL RBC (4.30-5.90) m/uL Hgb (13.0-17.5) gm/dL Hct (39.0-53.0) % Plt Count (150-450) k/uL Neutrophils # (1.3-7.7) k/uL Chloride (98-107) mmol/L BUN (9-20) mg/dL Glucose (74-99) mg/dL POC Glucose (mg/dL) 123 H 146 H 134 H (75-99) mg/dL Magnesium (1.6-2.3) mg/dL Total Protein (6.3-8.2) g/dL Albumin (3.5-5.0) g/dL 01/19/18 01/19/18 01/19/18 Range/Units 19:09 20:39 22:02 WBC (3.8-10.6) k/uL RBC (4.30-5.90) m/uL Hgb (13.0-17.5) gm/dL Hct (39.0-53.0) % Plt Count (150-450) k/uL Neutrophils # (1.3-7.7) k/uL Chloride (98-107) mmol/L BUN (9-20) mg/dL Glucose (74-99) mg/dL POC Glucose (mg/dL) 149 H 136 H 120 H (75-99) mg/dL Magnesium (1.6-2.3) mg/dL Total Protein (6.3-8.2) g/dL Albumin (3.5-5.0) g/dL 01/19/18 01/20/18 01/20/18 Range/Units 23:08 00:01 02:26 WBC (3.8-10.6) k/uL RBC (4.30-5.90) m/uL Hgb (13.0-17.5) gm/dL Hct (39.0-53.0) % Plt Count (150-450) k/uL Neutrophils # (1.3-7.7) k/uL Chloride (98-107) mmol/L BUN (9-20) mg/dL Glucose (74-99) mg/dL POC Glucose (mg/dL) 108 H 113 H 135 H (75-99) mg/dL Magnesium (1.6-2.3) mg/dL Total Protein (6.3-8.2) g/dL Albumin (3.5-5.0) g/dL 01/20/18 01/20/18 01/20/18 Range/Units 03:13 04:24 04:26 WBC (3.8-10.6) k/uL RBC (4.30-5.90) m/uL Hgb (13.0-17.5) gm/dL Hct (39.0-53.0) % Plt Count (150-450) k/uL Neutrophils # (1.3-7.7) k/uL Chloride 109 H (98-107) mmol/L BUN 21 H (9-20) mg/dL Glucose 103 H (74-99) mg/dL POC Glucose (mg/dL) 127 H 107 H (75-99) mg/dL Magnesium 2.4 H (1.6-2.3) mg/dL Total Protein 4.9 L (6.3-8.2) g/dL Albumin 2.8 L (3.5-5.0) g/dL 01/20/18 01/20/18 01/20/18 Range/Units 04:26 05:36 06:39 WBC 13.6 H (3.8-10.6) k/uL RBC 3.36 L (4.30-5.90) m/uL Hgb 10.1 L (13.0-17.5) gm/dL Hct 31.4 L (39.0-53.0) % Plt Count 138 L (150-450) k/uL Neutrophils # 11.0 H (1.3-7.7) k/uL Chloride (98-107) mmol/L BUN (9-20) mg/dL Glucose (74-99) mg/dL POC Glucose (mg/dL) 106 H 123 H (75-99) mg/dL Magnesium (1.6-2.3) mg/dL Total Protein (6.3-8.2) g/dL Albumin (3.5-5.0) g/dL 08/31/18 Range/Units 08:41 WBC (3.8-10.6) k/uL RBC (4.30-5.90) m/uL Hgb (13.0-17.5) gm/dL Hct (39.0-53.0) % Plt Count (150-450) k/uL Neutrophils # (1.3-7.7) k/uL Chloride (98-107) mmol/L BUN (9-20) mg/dL Glucose (74-99) mg/dL POC Glucose (mg/dL) 174 H (75-99) mg/dL Magnesium (1.6-2.3) mg/dL Total Protein (6.3-8.2) g/dL Albumin (3.5-5.0) g/dL Assessment and Plan (1) Status post aorto-coronary artery bypass graft Current Visit: Yes Status: Acute Code(s): Z95.1 - PRESENCE OF AORTOCORONARY BYPASS GRAFT SNOMED Code(s): 461278250 (2) Coronary artery disease Current Visit: Yes Status: Chronic Code(s): I25.10 - ATHSCL HEART DISEASE OF [place] CORONARY ARTERY W/O ANG PCTRS SNOMED Code(s): 84268044 (3) Hypercholesterolemia Current Visit: Yes Status: Chronic Code(s): E78.00 - PURE HYPERCHOLESTEROLEMIA, UNSPECIFIED SNOMED Code(s): 14011082 (4) Hypertension Current Visit: Yes Status: Chronic Code(s): I10 - ESSENTIAL (PRIMARY) HYPERTENSION SNOMED Code(s): 65153604 Plan: Continue current medical therapy. Increase activity and incentive spirometry. Resume beta blockers and lipid-lowering agents. Transferred to telemetry unit
[2018-01-20 11:42] LABS: Glucose,Whole Blood 119 mg/dL (75-99)
[2018-01-20] MEDS: INSULIN ASPART 100 UNIT/ML 1 ML 10 ML VIAL SQ SCH ×3 (12:31→21:50)
[2018-01-20] MEDS: MULTIVITAMINS, THERA 1 EACH TAB PO SCH (12:31)
--- NOTE | 2018-01-20 13:24 | P.PN ---
Subjective Progress Note Date: 01/20/18 Principal diagnosis: Status post CABG 4 postoperative day # 2 This is a 67-year-old male patient was found to have multivessel coronary artery disease. The patient was having on and off chest pain and he underwent a outpatient cardiac stresses that came back abnormal and following that the patient underwent a cardiac catheterization that showed proximal LAD stenosis 50 %, diagonal stenosis 95%, circumflex stenosis 70% and total occlusion of the RCA. The patient has a normal ejection fraction with an ejection fraction of 55 %, mild MR, trace AR, trace TR. The patient is a lifetime nonsmoker. No known lung disease. Preoperative FEV1 is above 100% of predicted. He presented here today for an elective coronary artery bypass grafting that was performed by Dr. Saldana earlier this morning. He had undergone an off-pump coronary artery bypass grafting 4 with sequential SEXTON to the diagonal and LAD, left radial graft to the first obtuse marginal, saphenous vein graft to the posterior descending artery. He is seen upon arrival to the intensive care unit. He has a #9 endotracheal tube. He is currently on SIMV mode of 14, tidal volume 600, 100% FiO2 and a PEEP of 5. Arterial blood gases reveal a P O2 of 173, pCO2 48 and a pH of 7.27. White count 16.9. Hemoglobin 12.1. INR 1.2. Bicarb 20. Creatinine 0.80. He is currently on Dexmedetomidine at 0.4 mcg/kg/h. Insulin drip at 6 units per hour. Cardizem drip at 10 mg per hour. Maintenance lactated Ringer's at 50 MLS per hour. Current heart rate 60 sinus rhythm, blood pressure 131/72, PA pressure 45/27, CVP 24. Chest x-ray reveals streak atelectasis at the left midlung. Reevaluated today on 01/19/2018, patient is doing relatively well, extubated last night. Hours after his surgery uneventfully. He tolerated the extubation well. Chest x-ray today is reassuring. Clinically the patient is doing great. Denies any shortness of breath no cough no wheezing no chest pain. Labs were reviewed hemoglobin is 11.5 WBC count is 22.3. Basic metabolic profile and renal profile are normal. Reevaluated today on 01/20/2018, patient is doing great, relatively asymptomatic , his postoperative course has been basically relatively uneventful. Patient is hemodynamically stable, not requiring any pressors. No complaints, had poor sleep last night. And related in the hallway earlier today without any difficulty. Objective - Vital Signs Vital signs: Vital Signs Temp 98.7 F 01/20/18 12:00 Pulse 81 01/20/18 13:00 Resp 14 01/20/18 13:00 BP 134/73 01/20/18 13:00 Pulse Ox 91 L 01/20/18 13:00 Intake & Output 01/19/18 01/20/18 01/20/18 18:59 06:59 18:59 Intake Total 545.873 455.937 134 Output Total 2125 935 445 Balance -1579.127 -479.063 -311 Weight 119.7 kg 113.4 kg Intake: IV 461 422 134 ACETAMINOPHEN IV (For NPO 100 ) 1,000 mg In Empty Bag 1 bag @ 400 mls/hr IVPB Q6HR [facility] Rx#:[id number] Lactated Ringers 1,000 ml 380 250 110 @ 20 mls/hr IV .Q24H [facility] Rx#:[id number] Presure Bag 81 72 24 Intake, IV Titration 84.873 33.937 Amount Diltiazem 50 mg In Sodium 50 Chloride 0.9% 40 ml @ 5 MG/HR 5 mls/hr IV .Q10H [facility] Rx#:[id number] Insulin Regular 100 unit 34.873 33.937 In Sodium Chloride 0.9% 100 ml @ Per Protocol IV .Q0M [facility] Rx#:[id number] Output: Chest Tube Drainage 260 180 70 Left Pleural/Mediastinal 260 180 70 Urine 1865 755 375 Other: Voiding Method Indwelling Catheter Indwelling Catheter # Voids 1 ABP, PAP, CO, CI - Last Documented Arterial Blood Pressure 129/59 Pulmonary Artery Pressure 24/13 Cardiac Output 7.5 Cardiac Index 3.2 - Exam Physical Exam: 67-year-old white male in no distress. Head: Atraumatic, normocephalic. HEENT:[Neck is supple.] [No neck masses.] [No thyromegaly.] [No JVD.] PERRLA, EOMI, no icterus. Chest: [Slightly diminished breath sounds at the bases no rhonchi no wheezes. Chest tube in place and intact. Cardiac Exam: [Normal S1 and S2, no S3 gallop, no murmur.] Abdomen: [Soft, nontender, no megaly, no rebound, no guarding, normal bowel sounds.] Extremities: [No clubbing, no edema, no cyanosis.] Neurological Exam: [No focal neurologic deficit. Psychiatric: Normal mood affect and mental status examination. ] - Labs CBC & Chem 7: 01/20/18 04:26 01/20/18 04:26 Labs: Abnormal Lab Results - Last 24 Hours (Table) 01/19/18 01/19/18 01/19/18 Range/Units 13:36 14:22 15:05 WBC (3.8-10.6) k/uL RBC (4.30-5.90) m/uL Hgb (13.0-17.5) gm/dL Hct (39.0-53.0) % Plt Count (150-450) k/uL Neutrophils # (1.3-7.7) k/uL Chloride (98-107) mmol/L BUN (9-20) mg/dL Glucose (74-99) mg/dL POC Glucose (mg/dL) 170 H 168 H 144 H (75-99) mg/dL Magnesium (1.6-2.3) mg/dL Total Protein (6.3-8.2) g/dL Albumin (3.5-5.0) g/dL 01/19/18 01/19/18 01/19/18 Range/Units 16:20 17:14 18:28 WBC (3.8-10.6) k/uL RBC (4.30-5.90) m/uL Hgb (13.0-17.5) gm/dL Hct (39.0-53.0) % Plt Count (150-450) k/uL Neutrophils # (1.3-7.7) k/uL Chloride (98-107) mmol/L BUN (9-20) mg/dL Glucose (74-99) mg/dL POC Glucose (mg/dL) 123 H 146 H 134 H (75-99) mg/dL Magnesium (1.6-2.3) mg/dL Total Protein (6.3-8.2) g/dL Albumin (3.5-5.0) g/dL 01/19/18 01/19/18 01/19/18 Range/Units 19:09 20:39 22:02 WBC (3.8-10.6) k/uL RBC (4.30-5.90) m/uL Hgb (13.0-17.5) gm/dL Hct (39.0-53.0) % Plt Count (150-450) k/uL Neutrophils # (1.3-7.7) k/uL Chloride (98-107) mmol/L BUN (9-20) mg/dL Glucose (74-99) mg/dL POC Glucose (mg/dL) 149 H 136 H 120 H (75-99) mg/dL Magnesium (1.6-2.3) mg/dL Total Protein (6.3-8.2) g/dL Albumin (3.5-5.0) g/dL 01/19/18 01/20/18 01/20/18 Range/Units 23:08 00:01 02:26 WBC (3.8-10.6) k/uL RBC (4.30-5.90) m/uL Hgb (13.0-17.5) gm/dL Hct (39.0-53.0) % Plt Count (150-450) k/uL Neutrophils # (1.3-7.7) k/uL Chloride (98-107) mmol/L BUN (9-20) mg/dL Glucose (74-99) mg/dL POC Glucose (mg/dL) 108 H 113 H 135 H (75-99) mg/dL Magnesium (1.6-2.3) mg/dL Total Protein (6.3-8.2) g/dL Albumin (3.5-5.0) g/dL 01/20/18 01/20/18 01/20/18 Range/Units 03:13 04:24 04:26 WBC (3.8-10.6) k/uL RBC (4.30-5.90) m/uL Hgb (13.0-17.5) gm/dL Hct (39.0-53.0) % Plt Count (150-450) k/uL Neutrophils # (1.3-7.7) k/uL Chloride 109 H (98-107) mmol/L BUN 21 H (9-20) mg/dL Glucose 103 H (74-99) mg/dL POC Glucose (mg/dL) 127 H 107 H (75-99) mg/dL Magnesium 2.4 H (1.6-2.3) mg/dL Total Protein 4.9 L (6.3-8.2) g/dL Albumin 2.8 L (3.5-5.0) g/dL 01/20/18 01/20/18 01/20/18 Range/Units 04:26 05:36 06:39 WBC 13.6 H (3.8-10.6) k/uL RBC 3.36 L (4.30-5.90) m/uL Hgb 10.1 L (13.0-17.5) gm/dL Hct 31.4 L (39.0-53.0) % Plt Count 138 L (150-450) k/uL Neutrophils # 11.0 H (1.3-7.7) k/uL Chloride (98-107) mmol/L BUN (9-20) mg/dL Glucose (74-99) mg/dL POC Glucose (mg/dL) 106 H 123 H (75-99) mg/dL Magnesium (1.6-2.3) mg/dL Total Protein (6.3-8.2) g/dL Albumin (3.5-5.0) g/dL 18 01/20/18 Range/Units 08:41 11:40 WBC (3.8-10.6) k/uL RBC (4.30-5.90) m/uL Hgb (13.0-17.5) gm/dL Hct (39.0-53.0) % Plt Count (150-450) k/uL Neutrophils # (1.3-7.7) k/uL Chloride (98-107) mmol/L BUN (9-20) mg/dL Glucose (74-99) mg/dL POC Glucose (mg/dL) 174 H 119 H (75-99) mg/dL Magnesium (1.6-2.3) mg/dL Total Protein (6.3-8.2) g/dL Albumin (3.5-5.0) g/dL Assessment and Plan Assessment: #1 Coronary artery disease, status post coronary artery bypass grafting 4 with sequential SEXTON to the diagonal and LAD, left radial artery graft to the first obtuse marginal, saphenous vein graft to posterior descending coronary artery. Postop day #2 #2 More motivated with history of bladder cancer status post transurethral resection bladder tumor followed by BCG treatment. #3 Hyperlipidemia. #4 History of nephrolithiasis. #5 Degenerative arthritis. #6 minimal postoperative atelectasis, expected postoperative findings, post CABG. Patient will continue incentive spirometry. Recommendation: Continue bronchodilators, incentive spirometry, early ambulation , overall the patient is doing great. Patient will likely transfer to [facility] today. Time with Patient: Less than 30
[2018-01-20 17:24] LABS: Glucose,Whole Blood 127 mg/dL (75-99)
[2018-01-20] MEDS ORDERED: ZOLPIDEM 5 MG TAB PO PRN (19:50)
[2018-01-20] MEDS: CRESTOR 10MG PO SCH (20:07)
[2018-01-20] MEDS: SENNOSIDES-DOCUSATE SODIUM 1 EACH TAB PO SCH (20:07)
[2018-01-20 20:16] LABS: Glucose,Whole Blood 145 mg/dL (75-99)
[2018-01-20] MEDS ORDERED: FUROSEMIDE 10 MG/ML 2 ML VIAL IV ONE (21:06)
[2018-01-20] MEDS: AMIODARONE 450 MG in DEXTROSE 5% IN WATER 250 ML IV SCH ×2 (21:28)
[2018-01-20] MEDS ORDERED: DEXTROSE 5% IN WATER 100 ML with AMIODARONE 150 MG IV ONE (21:30)
[2018-01-21] MEDS: KETOROLAC 30 MG/ML 1 ML VIAL IVP SCH ×4 (04:00→20:34)
[2018-01-21 05:09] LABS: Basophils % (A) 0 %; Eosinophils % (A) 6 %; HGB 11.4 gm/dL (13.0-17.5); Lymphocytes # (A) 1.4 k/uL (1.0-4.8); Lymphocytes % (A) 9 %; MCH 29.7 pg (25.0-35.0); MCHC 31.7 g/dL (31.0-37.0); MCV 93.8 fL (80.0-100.0); Mean Platelet Volume 7.3; Monocytes # (A) 0.6 k/uL (0-1.0); Monocytes % (A) 4 %; Neutrophils # (A) 11.8 k/uL (1.3-7.7); Neutrophils % (A) 79 %; Platelet Count 184 k/uL (150-450); RBC 3.84 m/uL (4.30-5.90); RDW 13.5 % (11.5-15.5)
[2018-01-21 05:18] LABS: Albumin 3.6 g/dL (3.5-5.0); Calcium 8.9 mg/dL (8.4-10.2); Magnesium 2.3 mg/dL (1.6-2.3); Potassium 4.1 mmol/L (3.5-5.1); Total Bilirubin 0.7 mg/dL (0.2-1.3)
[2018-01-21] MEDS: AMIODARONE 450 MG in DEXTROSE 5% IN WATER 250 ML IV SCH ×4 (06:15→21:53)
[2018-01-21] MEDS: DILTIAZEM ORAL 30 MG TAB PO SCH ×4 (06:16→22:59)
[2018-01-21] MEDS: INSULIN ASPART 100 UNIT/ML 1 ML 10 ML VIAL SQ SCH ×4 (07:34→20:35)
[2018-01-21] MEDS: IPRATROPIUM-ALBUTEROL 3 ML NEB INHALATION SCH ×4 (07:51→21:04)
[2018-01-21] MEDS: PANTOPRAZOLE 40 MG TABLET PO SCH (08:21)
[2018-01-21] MEDS: HEPARIN SODIUM,PORCINE 5,000 UNIT/ML 1 ML VIAL SQ SCH ×3 (08:21→22:59)
[2018-01-21] MEDS: METOPROLOL TARTRATE 12.5 MG TAB PO SCH (08:22)
[2018-01-21] MEDS: ASPIRIN 325 MG TAB PO SCH (08:22)
[2018-01-21] MEDS: CLOPIDOGREL 75 MG TAB PO SCH (08:23)
[2018-01-21] MEDS ORDERED: FUROSEMIDE 10 MG/ML 2 ML VIAL IV ONE (09:37)
--- NOTE | 2018-01-21 09:47 | P.PN ---
Subjective Progress Note Date: 01/21/18 Principal diagnosis: Status post CABG 4 postoperative day # 3 This is a 67-year-old male patient was found to have multivessel coronary artery disease. The patient was having on and off chest pain and he underwent a outpatient cardiac stresses that came back abnormal and following that the patient underwent a cardiac catheterization that showed proximal LAD stenosis 50 %, diagonal stenosis 95%, circumflex stenosis 70% and total occlusion of the RCA. The patient has a normal ejection fraction with an ejection fraction of 55 %, mild MR, trace AR, trace TR. The patient is a lifetime nonsmoker. No known lung disease. Preoperative FEV1 is above 100% of predicted. He presented here today for an elective coronary artery bypass grafting that was performed by Dr. Saldana earlier this morning. He had undergone an off-pump coronary artery bypass grafting 4 with sequential SEXTON to the diagonal and LAD, left radial graft to the first obtuse marginal, saphenous vein graft to the posterior descending artery. He is seen upon arrival to the intensive care unit. He has a #9 endotracheal tube. He is currently on SIMV mode of 14, tidal volume 600, 100% FiO2 and a PEEP of 5. Arterial blood gases reveal a P O2 of 173, pCO2 48 and a pH of 7.27. White count 16.9. Hemoglobin 12.1. INR 1.2. Bicarb 20. Creatinine 0.80. He is currently on Dexmedetomidine at 0.4 mcg/kg/h. Insulin drip at 6 units per hour. Cardizem drip at 10 mg per hour. Maintenance lactated Ringer's at 50 MLS per hour. Current heart rate 60 sinus rhythm, blood pressure 131/72, PA pressure 45/27, CVP 24. Chest x-ray reveals streak atelectasis at the left midlung. Reevaluated today on 01/19/2018, patient is doing relatively well, extubated last night. Hours after his surgery uneventfully. He tolerated the extubation well. Chest x-ray today is reassuring. Clinically the patient is doing great. Denies any shortness of breath no cough no wheezing no chest pain. Labs were reviewed hemoglobin is 11.5 WBC count is 22.3. Basic metabolic profile and renal profile are normal. Reevaluated today on 01/20/2018, patient is doing great, relatively asymptomatic , his postoperative course has been basically relatively uneventful. Patient is hemodynamically stable, not requiring any pressors. No complaints, had poor sleep last night. And related in the hallway earlier today without any difficulty. Reevaluated today on 01/21/2018, patient is doing quite well, had an episode of atrial fibrillation last night, placed on amiodarone for about 4 hours, patient converted to normal sinus rhythm, and he remains in sinus rhythm at this point. Patient is asymptomatic, no cough no wheezing no shortness of breath no chest pain, chest x-ray is reassuring, and he is ambulating down the hallway quite well. All chest tubes have been removed. Objective - Vital Signs Vital signs: Vital Signs Temp 98.8 F 01/21/18 08:00 Pulse 82 01/21/18 08:09 Resp 12 01/21/18 08:00 BP 107/69 01/21/18 08:00 Pulse Ox 95 01/21/18 08:00 Intake & Output 01/20/18 01/21/18 01/21/18 18:59 06:59 18:59 Intake Total 494 293.000 Output Total 695 2325 250 Balance -201 -2032.000 -250 Weight 109.4 kg Intake: IV 134 34 Amiodarone 450 mg In 34 Dextrose 5% in Water 250 ml @ 1 MG/MIN 34.53 mls/ hr IV .Q7H31M [facility] Rx#: [id number] Lactated Ringers 1,000 ml 110 @ 20 mls/hr IV .Q24H [facility] Rx#:[id number] Presure Bag 24 Intake, IV Titration 259.000 Amount Amiodarone 450 mg In 259.000 Dextrose 5% in Water 250 ml @ 1 MG/MIN 34.53 mls/ hr IV .Q7H31M [facility] Rx#: [id number] Oral 360 Output: Chest Tube Drainage 70 Left Pleural/Mediastinal 70 Urine 625 2325 250 Other: Voiding Method Urinal Urinal # Voids 1 ABP, PAP, CO, CI - Last Documented Arterial Blood Pressure 129/59 Pulmonary Artery Pressure 24/13 Cardiac Output 7.5 Cardiac Index 3.2 - Exam Physical Exam: 67-year-old white male in no distress. Head: Atraumatic, normocephalic. HEENT:[Neck is supple.] [No neck masses.] [No thyromegaly.] [No JVD.] PERRLA, EOMI, no icterus. Chest: Clear throughout, no crackles, no rhonchi no wheezes. Cardiac Exam: [Normal S1 and S2, no S3 gallop, no murmur.] Abdomen: [Soft, nontender, no megaly, no rebound, no guarding, normal bowel sounds.] Extremities: [No clubbing, no edema, no cyanosis.] Neurological Exam: [No focal neurologic deficit. Psychiatric: Normal mood affect and mental status examination. ] - Labs CBC & Chem 7: 01/21/18 04:39 01/21/18 04:39 Labs: Abnormal Lab Results - Last 24 Hours (Table) 01/20/18 01/20/18 01/20/18 Range/Units 11:40 17:21 20:15 WBC (3.8-10.6) k/uL RBC (4.30-5.90) m/uL Hgb (13.0-17.5) gm/dL Hct (39.0-53.0) % Neutrophils # (1.3-7.7) k/uL Eosinophils # (0-0.7) k/uL Chloride (98-107) mmol/L Glucose (74-99) mg/dL POC Glucose (mg/dL) 119 H 127 H 145 H (75-99) mg/dL Total Protein (6.3-8.2) g/dL 01/21/18 01/21/18 Range/Units 04:39 04:39 WBC 15.0 H (3.8-10.6) k/uL RBC 3.84 L (4.30-5.90) m/uL Hgb 11.4 L (13.0-17.5) gm/dL Hct 36.0 L (39.0-53.0) % Neutrophils # 11.8 H (1.3-7.7) k/uL Eosinophils # 1.0 H (0-0.7) k/uL Chloride 109 H (98-107) mmol/L Glucose 122 H (74-99) mg/dL POC Glucose (mg/dL) (75-99) mg/dL Total Protein 6.0 L (6.3-8.2) g/dL Assessment and Plan Assessment: #1 Coronary artery disease, status post coronary artery bypass grafting 4 with sequential SEXTON to the diagonal and LAD, left radial artery graft to the first obtuse marginal, saphenous vein graft to posterior descending coronary artery. Postop day #3 #2 history of bladder cancer status post transurethral resection bladder tumor followed by BCG treatment. #3 Hyperlipidemia. #4 History of nephrolithiasis. #5 Degenerative arthritis. #6 minimal postoperative atelectasis, expected postoperative findings, post CABG. Patient will continue incentive spirometry. Recommendation: Continue bronchodilators, incentive spirometry, likely transfer out of the ICU today, and discharge planning in the next 24 hours. Time with Patient: Less than 30
--- NOTE | 2018-01-21 09:52 | P.PN ---
Subjective Progress Note Date: 01/21/18 Principal diagnosis: Coronary artery disease. Previous medical history of hypertension, hyperlipidemia, family history of heart disease, and bladder cancer diagnosed in 2014, currently in remission with 1 round of chemo and current BCG therapy, obesity. Preoperative leukocytosis. POD #3 off-pump CABG 4 with sequential SEXTON to diagonal and LAD coronary arteries, left radial arterial graft to first obtuse marginal coronary artery, a reverse greater saphenous vein graft to posterior descending coronary artery with endoscopic harvest of the left greater saphenous vein and left radial artery and intraoperative RADHA by anesthesia. The patient is currently sitting up to the bedside chair, he is in no acute distress. He is currently rating his pain 2 out of 10 on the pain scale, denies any complaints of shortness of breath. He is hemodynamically stable. Currently waiting for a bed on selective care unit. He is achieving 2250 mL on his incentive spirometry. He is ambulating in the ICU hallway without difficulty. He had episode of atrial fibrillation with RVR early this morning around 1 AM, he has been started on an amiodarone drip per protocol and is currently sewing normal sinus rhythm heart rate 82 on his bedside monitor. Objective - Vital Signs Vital signs: Vital Signs Temp 98.8 F 01/21/18 08:00 Pulse 82 01/21/18 08:09 Resp 12 01/21/18 08:00 BP 107/69 01/21/18 08:00 Pulse Ox 95 01/21/18 08:00 Intake & Output 01/20/18 01/21/18 01/21/18 18:59 06:59 18:59 Intake Total 494 293.000 Output Total 695 2325 250 Balance - -2031.000 -250 Weight 109.4 kg Intake: IV 134 34 Amiodarone 450 mg In 34 Dextrose 5% in Water 250 ml @ 1 MG/MIN 34.53 mls/ hr IV .Q7H31M [facility] Rx#: [id number] Lactated Ringers 1,000 ml 110 @ 20 mls/hr IV .Q24H [facility] Rx#:[id number] Presure Bag 24 Intake, IV Titration 259.000 Amount Amiodarone 450 mg In 259.000 Dextrose 5% in Water 250 ml @ 1 MG/MIN 34.53 mls/ hr IV .Q7H31M [facility] Rx#: [id number] Oral 360 Output: Chest Tube Drainage 70 Left Pleural/Mediastinal 70 Urine 625 2325 250 Other: Voiding Method Urinal Urinal # Voids 1 ABP, PAP, CO, CI - Last Documented Arterial Blood Pressure 129/59 Pulmonary Artery Pressure 24/13 Cardiac Output 7.5 Cardiac Index 3.2 - Constitutional General appearance: Present: cooperative, no acute distress, obese - Respiratory Details: Lung sounds essentially clear throughout, diminished was bilateral bases. Respirations are symmetrical and nonlabored. Oxygen saturation are 94% on room air. He is achieving 2250 mL on his incentive spirometry. - Cardiovascular Details: Regular rhythm and rate. S1 and S2 present, negative for S3, gallop or murmur. Sternum is stable. Bedside telemetry showing normal sinus rhythm heart rate 82. Currently on an amiodarone drip 0.5 mg per hour. No further episodes of atrial fibrillation. Heart hugger is in place and he is demonstrating appropriate use. Knee-high ELIZABETH hose and sequential compression devices in place to bilateral lower extremities. - Gastrointestinal Gastrointestinal Comment(s): Abdomen is soft, nontender and nondistended. Active bowel sounds all 4 abdominal quadrants. Tolerating oral intake. Passing flatus. No bowel movement since surgery. - Genitourinary Genitourinary Comment(s): Urine output adequate. Voiding clear yellow urine. 875 mL output in the last 8 hours. - Integumentary Integumentary Comment(s): Skin is warm and dry. No clubbing or cyanosis present. Midline sternal incision clean dry and approximated. Dressing is clean and dry. No drainage or redness present. Left lower extremity EVH site clean and dry and approximated. Left radial harvest site clean dry and approximated. No drainage or redness present. Positive ulnar pulse palpable. - Neurologic Neurologic: Present: CNII-XII intact - Musculoskeletal Musculoskeletal: Present: gait normal, strength equal bilaterally - Psychiatric Psychiatric: Present: A&O x's 3, appropriate affect, intact judgment & insight - Allied health notes Allied health notes reviewed: nursing - Labs CBC & Chem 7: 01/21/18 04:39 01/21/18 04:39 Labs: Abnormal Lab Results - Last 24 Hours (Table) 01/20/18 01/20/18 01/20/18 Range/Units 11:40 17:21 20:15 WBC (3.8-10.6) k/uL RBC (4.30-5.90) m/uL Hgb (13.0-17.5) gm/dL Hct (39.0-53.0) % Neutrophils # (1.3-7.7) k/uL Eosinophils # (0-0.7) k/uL Chloride (98-107) mmol/L Glucose (74-99) mg/dL POC Glucose (mg/dL) 119 H 127 H 145 H (75-99) mg/dL Total Protein (6.3-8.2) g/dL 01/21/18 01/21/18 Range/Units 04:39 04:39 WBC 15.0 H (3.8-10.6) k/uL RBC 3.84 L (4.30-5.90) m/uL Hgb 11.4 L (13.0-17.5) gm/dL Hct 36.0 L (39.0-53.0) % Neutrophils # 11.8 H (1.3-7.7) k/uL Eosinophils # 1.0 H (0-0.7) k/uL Chloride 109 H (98-107) mmol/L Glucose 122 H (74-99) mg/dL POC Glucose (mg/dL) (75-99) mg/dL Total Protein 6.0 L (6.3-8.2) g/dL - Imaging and Cardiology Chest x-ray: report reviewed, image reviewed Assessment and Plan (1) Status post aorto-coronary artery bypass graft Current Visit: Yes Status: Acute Code(s): Z95.1 - PRESENCE OF AORTOCORONARY BYPASS GRAFT SNOMED Code(s): 313996169 (2) Coronary artery disease Current Visit: Yes Status: Chronic Code(s): I25.10 - ATHSCL HEART DISEASE OF [place] CORONARY ARTERY W/O ANG PCTRS SNOMED Code(s): 07883435 (3) Family history of ischemic heart disease Current Visit: Yes Status: Chronic Code(s): Z82.49 - FAMILY HX OF ISCHEM HEART DIS AND OTH DIS OF THE CIRC SYS SNOMED Code(s): 354689704 (4) Hypercholesterolemia Current Visit: Yes Status: Chronic Code(s): E78.00 - PURE HYPERCHOLESTEROLEMIA, UNSPECIFIED SNOMED Code(s): 27516401 (5) Hypertension Current Visit: Yes Status: Chronic Code(s): I10 - ESSENTIAL (PRIMARY) HYPERTENSION SNOMED Code(s): 94207425 (6) History of bladder cancer Current Visit: No Status: Resolved Code(s): Z85.51 - PERSONAL HISTORY OF MALIGNANT NEOPLASM OF BLADDER SNOMED Code(s): 298704845 Plan: 1. Continue aspirin, statin, Plavix, subcu heparin, beta harika. Will increase metoprolol tartrate 25 mg by mouth twice a day. 2. Continue oral Cardizem for radial artery spasm prophylaxis. We will change his Cardizem to Cardizem CD 120 mg by mouth daily starting tomorrow 01/22/2018. 2. Encourage incentive spirometry 10 times every hour. 3. Increase activity, ambulate in hallway. PT/OT/cardiac rehab following. 4. Will monitor daily labs and chest x-rays. 5. Continue bladder scan after each void or every 6 hours, straight cathed for greater than 300 mL. 6. Lasix 20 mg IV 1 now. 7. Continue amiodarone drip until finished. We will start amiodarone 400 mg by mouth twice a day for atrial fibrillation prophylaxis. 8. GI prophylaxis with Protonix. DVT prophylaxis with subcu heparin and SCDs. 9. Bronchodilators per pulmonology. 10. Insulin management per Dr. Calero. 11. Pain control with current medication regimen. 12. Will place transfer orders for 6 E. selective care when bed available. 13. More recommendations to follow based on patient's clinical course. Time with Patient: Greater than 30
[2018-01-21] MEDS: METOPROLOL TARTRATE 12.5 MG TAB PO STA ×2 (10:52→12:39)
[2018-01-21] MEDS: AMIODARONE 200 MG TAB PO SCH ×2 (10:52→21:41)
--- NOTE | 2018-01-21 11:00 | XR ---
EXAMINATION TYPE: XR chest 2V DATE OF EXAM: 01/21/2018 COMPARISON: 01/20/2018 HISTORY: 67 year-old male post cardiac surgery TECHNIQUE: Frontal and lateral views FINDINGS: Median sternotomy wires are present with post-CABG clips in the mediastinum. Heart upper limits of no rmal in size. Interval removal of the patient's left-sided chest tube. No appreciable pneumothorax. M ild residual patchy left perihilar density. Trace effusions remain on the lateral view. IMPRESSION: Mild residual patchy left hilar density, probably atelectasis. Trace effusions remain, only seen on t he lateral view. Left chest tube removed in the interval. No appreciable pneumothorax.
[2018-01-21 11:27] LABS: Glucose,Whole Blood 185 mg/dL (75-99)
[2018-01-21] MEDS: MULTIVITAMINS, THERA 1 EACH TAB PO SCH (12:39)
[2018-01-21 16:34] LABS: Glucose,Whole Blood 125 mg/dL (75-99)
[2018-01-21] MEDS: LACTATED RINGERS 1,000 ML IV SCH ×2 (18:52→19:03)
--- NOTE | 2018-01-21 19:36 | PN ---
PROGRESS NOTE This patient's EMR records and vital signs and medications are reviewed. The patient is status post coronary artery bypass surgery. He is doing fairly well. Patient is walking in the hallway. No respiratory distress is noted. The patient remains afebrile. Blood pressure is 125/77 mmHg. First and second heart sounds are normal. Lungs are clinically clear to auscultation and percussion. Patient remains in normal sinus rhythm. No dysrhythmias are noted. We will continue the current medications. MMODL / IJN: [id number] /
[2018-01-21 20:23] LABS: Glucose,Whole Blood 169 mg/dL (75-99)
[2018-01-21] MEDS: SENNOSIDES-DOCUSATE SODIUM 1 EACH TAB PO SCH (20:35)
[2018-01-21] MEDS: CRESTOR 10MG PO SCH (20:35)
[2018-01-21] MEDS: METOPROLOL TARTRATE 25 MG TAB PO SCH (20:35)
[2018-01-21 23:34] VITALS: RESP 18
[2018-01-22] MEDS: KETOROLAC 30 MG/ML 1 ML VIAL IVP SCH ×2 (01:34→09:09)
[2018-01-22 01:58] LABS: Glucose,Whole Blood 112 mg/dL (75-99)
[2018-01-22] MEDS: PANTOPRAZOLE 40 MG TABLET PO SCH (06:07)
[2018-01-22] MEDS: DILTIAZEM ORAL 30 MG TAB PO SCH (06:07)
[2018-01-22 06:10] LABS: Glucose,Whole Blood 142 mg/dL (75-99)
[2018-01-22] MEDS: INSULIN ASPART 100 UNIT/ML 1 ML 10 ML VIAL SQ SCH (06:11)
[2018-01-22 06:20] LABS: Basophils % (A) 0 %; Eosinophils # (A) 1.1 k/uL (0-0.7); Eosinophils % (A) 8 %; HCT 35.4 % (39.0-53.0); HGB 11.3 gm/dL (13.0-17.5); Lymphocytes # (A) 1.7 k/uL (1.0-4.8); Lymphocytes % (A) 13 %; MCH 29.9 pg (25.0-35.0); MCHC 32.1 g/dL (31.0-37.0); MCV 93.1 fL (80.0-100.0); Mean Platelet Volume 7.3; Monocytes # (A) 0.6 k/uL (0-1.0); Monocytes % (A) 4 %; Neutrophils # (A) 10.1 k/uL (1.3-7.7); Neutrophils % (A) 74 %; Platelet Count 244 k/uL (150-450); RDW 13.5 % (11.5-15.5); WBC 13.7 k/uL (3.8-10.6)
[2018-01-22 06:28] LABS: Albumin 3.5 g/dL (3.5-5.0); Magnesium 2.4 mg/dL (1.6-2.3); Potassium 4.1 mmol/L (3.5-5.1); Total Bilirubin 0.8 mg/dL (0.2-1.3)
--- NOTE | 2018-01-22 07:26 | XR ---
EXAMINATION TYPE: XR chest 2V DATE OF EXAM: 01/22/2018 COMPARISON: 01/22/2020 HISTORY: 67 year-old male post cardiac surgery TECHNIQUE: Frontal and lateral views FINDINGS: Stable exam with borderline heart size, mild residual patchy left perihilar density, and trace effusi ons which are only seen on the lateral view. Median sternotomy wires are present. IMPRESSION: Stable exam with mild residual patchy left perihilar density, likely atelectasis. Trace effusions are only seen on the lateral view.
[2018-01-22] MEDS: IPRATROPIUM-ALBUTEROL 3 ML NEB INHALATION SCH ×2 (07:40→11:37)
[2018-01-22] MEDS ORDERED: DILTIAZEM CD 120 MG CAP.ER.24H PO SCH (09:00)
[2018-01-22] MEDS: AMIODARONE 200 MG TAB PO SCH (09:08)
[2018-01-22] MEDS: ASPIRIN 325 MG TAB PO SCH (09:08)
[2018-01-22] MEDS: METOPROLOL TARTRATE 25 MG TAB PO SCH (09:08)
[2018-01-22] MEDS: HEPARIN SODIUM,PORCINE 5,000 UNIT/ML 1 ML VIAL SQ SCH (09:09)
[2018-01-22] MEDS: CLOPIDOGREL 75 MG TAB PO SCH (09:11)
--- NOTE | 2018-01-22 10:07 | P.PN ---
Progress Note - Text The patient is a 67-year-old gentleman who is post open heart surgery with coronary artery bypass. The patient is sitting up in a chair in his room. Overall appears in no acute distress. He denies any unusual chest pain or shortness of breath. No nausea or vomiting. States he did have somewhat difficult bowel movement yesterday but otherwise unremarkable. Vital signs show a temperature 90.8 with a pulse of 80 and respirations of 18. Blood pressure 119/73 and he was 97% saturated on room air. Lung and heart examination is clear. Heart regular. Abdomen nontender. Mild pedal edema. Cranial nerves intact. Alert and oriented. No focal weakness noted. Laboratory White count 13.7 with a hemoglobin 11.3 and a platelet count 244. Sodium 143 with a potassium 4.1. BUN of 20 with creatinine 1.1 for given him a GFR of 67. Blood sugar this morning was 135. Albumin 3.5 with a calcium of 9.0. Chest x-ray from today still shows some mild residual patchy left perihilar atelectasis. Trace effusions. Overall appears to be improving and stable. Impressions and plans Patient overall is supposed to open heart surgery. Post coronary artery bypass. He does have history of hypertension, hyperlipidemia and bladder cancer. Postoperative blood sugars have been mildly elevated in the low to mid 100s. At this time I do not recommend adding specific medications. Discussed with patient. He will continue to watch his diet and increase his activity post surgery and blood sugars will be followed. Continue to advance and discharge to when appropriate per thoracic surgery, cardiology and pulmonary medicine. Dr. Forrester traveling missionary for me over the next 2 days for any general medical concerns.
[2018-01-22 10:39] VITALS: BP 124/78; PULSE 91; TEMP 99.7
--- NOTE | 2018-01-22 11:24 | P.DS ---
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 Consult: post cardiac surgery Do you want consulting provider notified?: Yes Consult Physician Routine Consulting Provider: Winston Zamora Consult Reason/Comments: Twister In Consult: post cardiac surgery Do you want consulting provider notified?: Yes Primary care physician: Dick Calero - Discharge Diagnosis(es) (1) Status post aorto-coronary artery bypass graft Current Visit: Yes Status: Acute (2) Coronary artery disease Current Visit: Yes Status: Chronic (3) Family history of ischemic heart disease Current Visit: Yes Status: Chronic (4) Hypercholesterolemia Current Visit: Yes Status: Chronic (5) Hypertension Current Visit: Yes Status: Chronic (6) History of bladder cancer Current Visit: No Status: Resolved Hospital Course: FINAL DIAGNOSIS: 1. Coronary artery disease 2. Hypertension 3. Hyperlipidemia 4. Family history of heart disease 5. Bladder cancer diagnosed in 2013, currently in remission with 1 round of chemotherapy and current BCG therapy 6. Obesity 7. Preoperative leukocytosis PRINCIPAL PROCEDURE: 1. Off-pump coronary artery bypass grafting 4 vessels with a sequential SEXTON to the diagonal and left anterior descending coronary arteries, left radial graft to the first obtuse marginal coronary artery, a reverse greater saphenous vein graft to the posterior descending coronary artery. 2. Endoscopic harvesting of the left greater saphenous vein and left radial artery. 3. Intraoperative transesophageal echocardiogram performed by anesthesia. HISTORY OF PRESENT ILLNESS: This is a 67-year-old gentleman who is followed by Dr. Calero on about patient basis. His past medical history significant for coronary artery disease, hypertension, hyperlipidemia, family history of heart disease, bladder cancer diagnosed in 2013, currently in remission with 1 round of chemotherapy and current BCG therapy, obesity and preoperative leukocytosis. Recently, the patient has had complaints of chest tightness on his left side radiating to his back and associated with shortness of breath with exertion and complaints of fatigue. He presented to Dr. Grewal's office from [facility] for the above mentioned complaints. He reports that he has had these symptoms on and off the last several months. Subsequently he underwent a stress test on 12/29/2017 which was abnormal. A 2-D echocardiogram was completed on 01/02/2018 which demonstrated a normal left ventricular function with an ejection fraction of 55%, mild mitral valve regurgitation, trace aortic insufficiency and trace tricuspid regurgitation. For further evaluation and he underwent an elective heart catheterization with left ventriculography on 01/09/2018 which demonstrated a 70% stenosis to his mid left anterior descending coronary artery, a 99% stenosis to his diagonal coronary artery, a 60-70% stenosis to his circumflex coronary artery and a totally occluded right coronary artery. The heart heart catheterization also demonstrated a normal sized cardiac silhouette with a preserved left ventricular function. Due to the patient's symptoms, abnormal stress test and cardiac catheterization results he was referred to Dr. Larry Saldana from cardiothoracic surgery for further recommendations and treatment options. Dr. Saldana reviewed the heart catheterization results with the patient and he was recommended to undergo an elective coronary artery bypass grafting surgery. HOSPITAL COURSE: Patient was admitted to the hospital and after obtaining consent he was taken to the operating room, where Dr. Larry Saldana performed an elective coronary artery bypass grafting surgery 4 with a sequential SEXTON to the diagonal and left anterior descending coronary arteries, left radial graft to the first obtuse marginal coronary artery, a reverse greater saphenous vein graft to the posterior descending coronary artery. He also underwent endoscopic harvesting of his left greater saphenous vein and left radial artery , and an intraoperative transesophageal echocardiogram performed by anesthesia. He was subsequently transferred to the cardiovascular intensive care unit where he was recovered, monitored hemodynamically, and where he progressed to cardiac rehabilitation phase 1. He was extubated, all lines, tubes and drips were discontinued when appropriate and he was transferred to [address] [place] [address] for further monitoring and rehabilitation. His oxygen was titrated down, he continued to work with physical and occupational therapy, he was tolerating an oral diet, and his pain was controlled. He was ready to be discharged home on postoperative day #4 to home with home health care. He has received written and verbal instructions regarding his medications, activity restrictions, signs and symptoms requiring physician notification and instructions to make follow- up appointments. COMPLICATIONS: There were no postoperative complications. CONSULTATIONS: 1. Dr. Grewal for cardiology management. 2. Dr. Calero for medical management. 3. Dr. Kimbrough for pulmonary and ventilator management. DISCHARGE INSTRUCTIONS: 1. No driving for 4 weeks, or until physician gives their ok. 2. The patient should sleep in their own bed, no medical bed needed. 3. Stairs are not an issue. If the bedroom is upstairs, it is advised that the patient go up at night and down in the morning for the first week. Go slowly, using handrail and take 1 step at a time. 4. ELIZABETH hose are to be worn for 30 days or until physician discontinues. 5. Heart hugger is to be worn 100% of the time until physician discontinues.( except when showering) 6. No lifting, pushing, or pulling more than 10 pounds for 12 weeks. The physician will advise of any restriction changes. 7. The patient is expected to continue the prescribed walking program. 8. Continue pain control per as needed orders. 9. Continue with incentive spirometry and splinting/heart hugger until otherwise directed by the physician. 10. Must shower daily using liquid antibacterial soap and a separate white washcloth for each individual incision. 11. Routine sternal incision care, no ointments, lotions or powders on the incisions. 12. Please notify surgeon/nurse practitioner for temperature greater than 101F or purulent drainage from incisions 13. Prescriptions for first 30 days given per cardiac surgery service. After 30 days, all prescription refills obtained through cardiology/primary care physician. 14. A red arm and has been placed on this patient it should be worn for 30 days post surgery and will be removed by the cardiothoracic surgeons. If an ER visit is necessary, please make sure the number on the red arm band is called. HOME HEALTH SERVICES TO PROVIDE: RN SKILLED HOME CARE SERVICES FOR POST-OP SURGICAL PATIENTS WITH THE FOLLOWING: Coronary Artery Bypass Surgery (CABG), Mitral Valve Replacement/ Repair ( MVR), Aortic Valve Replacement/Repair (AVR) RN TO CONTINUE EDUCATION FROM ``ROAD TO A HEALTH HEART PATIENT EDUCATION MANUAL" (GIVEN TO PATIENT IN THE HOSPITAL) MEDICATION RECONCILIATION WITH EDUCATION NEEDED ON FIRST HOME VISIT EMPHASIZE IMPORTANCE OF WEARING BREAST SUPPORT/HEART HUGGER ENCOURAGE USE OF INCENTIVE SPIROMETER 10 X EVERY HOUR WHILE AWAKE ENCOURAGE UTILIZATION OF LOWER EXTREMITY COMPRESSION STOCKINGS/ELIZABETH HOSE and ELEVATE LEGS ABOVE LEVEL OF HEART WHILE AT REST. ENCOURAGE AMBULATION 3-5x/day INCREASING TOLERATES, WHILE AVOID EXTREMES IN TEMPERATURE FREQUENCY: RN TO OPEN THE PATIENT WITHIN 24 HOURS OF DISCHARGE FROM THE HOSPITAL WITH TELEHEALTH INSTALLED AT [facility] [place], RN TO VISIT 2-3 X A WEEK FOR 4 WEEKS ESTABLISHED BY PATIENT NEEDS. LABORATORY: CBC, CMP TO BE DRAWN ON THE THIRD DAY HOME, 01/25/2018 (RAN STAT) FAX RESULTS TO [phone]. TELEHEALTH PARAMETERS: WEIGHT: NOTIFY MD OF WEIGHT GAIN OF 2 LBS IN 24 HOURS OR 5 LBS IN ONE WEEK HR: NOTIFY MD OF HR <55 BPM OR HR>100 BPM BP: NOTIFY MD IF BP <90/55 OR BP>140/100 O2 SAT: NOTIFY MD IF PO2<93% ON ROOM AIR SEND TELEHEALTH REPORT TO HR ASSOCIATE AND CARDIOVASCULAR SURGEON THE FIRST WEEK OF CARE AND THEN BI-WEEKLY. PLEASE ADDITIONALLY COMMUNICATE ANY ABNORMALS AND NEW FINDINGS TO THE SURGEONS OFFICE. Plan - Discharge Summary Discharge Rx Participant: Yes New Discharge Prescriptions: New Acetaminophen Tab [Tylenol] 650 mg PO Q4HR PRN tab PRN Reason: Fever and/ or MODERATE Pain Amiodarone [Cordarone] 400 mg PO BID #50 tab Aspirin 325 mg PO DAILY #30 tab Clopidogrel [Plavix] 75 mg PO DAILY #30 tab Diltiazem Cd [Cardizem CD] 120 mg PO DAILY #30 cap.er.24h Metoprolol Tartrate [Lopressor] 25 mg PO BID #60 tab Pantoprazole [Protonix] 40 mg PO AC-BRKFST #30 tablet.dr Marshall-Docusate Sodium [Senokot-S] 2 each PO HS #60 tab Continue Cyanocobalamin (Vitamin B-12) [Vitamin B-12] 2,000 mcg PO Q10D Multivitamin [Men's Multi-Vitamin] 1 tab PO DAILY Changed Rosuvastatin [Crestor] 10 mg PO DAILY #30 tablet Discontinued Aspirin 81 mg PO DAILY Metoprolol Tartrate [Lopressor] 12.5 mg PO BID Discharge Medication List Cyanocobalamin (Vitamin B-12) [Vitamin B-12] 2,000 mcg PO Q10D 01/03/18 [History ] Multivitamin [Men's Multi-Vitamin] 1 tab PO DAILY 01/13/18 [History] Acetaminophen Tab [Tylenol] 650 mg PO Q4HR PRN tab 01/22/18 [Rx] Amiodarone [Cordarone] 400 mg PO BID #50 tab 01/22/18 [Rx] Aspirin 325 mg PO DAILY #30 tab 01/22/18 [Rx] Clopidogrel [Plavix] 75 mg PO DAILY #30 tab 01/22/18 [Rx] Diltiazem Cd [Cardizem CD] 120 mg PO DAILY #30 cap.er.24h 01/22/18 [Rx] Metoprolol Tartrate [Lopressor] 25 mg PO BID #60 tab 01/22/18 [Rx] Pantoprazole [Protonix] 40 mg PO AC-BRKFST #30 tablet.dr 01/22/18 [Rx] Rosuvastatin [Crestor] 10 mg PO DAILY #30 tablet 01/22/18 [Rx] Sennosides-Docusate Sodium [Senokot-S] 2 each PO HS #60 tab 01/22/18 [Rx] Follow up Appointment(s)/Referral(s): Larry Saldana MD [STAFF PHYSICIAN] - 4 Weeks [facility], [NON-STAFF] - 1-2 Days Dick Calero MD [Primary Care Provider] - 2 Weeks Hector Grewal MD [STAFF PHYSICIAN] - 2 Weeks Cinda Kimbrough MD [STAFF PHYSICIAN] - 2 Weeks Ambulatory/Diagnostic Orders: Complete Blood Count w/diff [LAB.AMB] Time Frame: 01/25/18, Facility: [facility], Location: Laboratory Main [facility] Comprehensive Metabolic Panel [LAB.AMB] Time Frame: 01/25/18, Facility: [facility], Location: Laboratory Main Hospital Discharge Disposition: HOME WITH HOME HEALTH SERVICES
--- NOTE | 2018-01-22 11:34 | P.PN ---
Subjective Progress Note Date: 01/22/18 Principal diagnosis: Status post CABG 4 postoperative day # #4 This is a 67-year-old male patient was found to have multivessel coronary artery disease. The patient was having on and off chest pain and he underwent a outpatient cardiac stresses that came back abnormal and following that the patient underwent a cardiac catheterization that showed proximal LAD stenosis 50 %, diagonal stenosis 95%, circumflex stenosis 70% and total occlusion of the RCA. The patient has a normal ejection fraction with an ejection fraction of 55 %, mild MR, trace AR, trace TR. The patient is a lifetime nonsmoker. No known lung disease. Preoperative FEV1 is above 100% of predicted. He presented here today for an elective coronary artery bypass grafting that was performed by Dr. Saldana earlier this morning. He had undergone an off-pump coronary artery bypass grafting 4 with sequential SEXTON to the diagonal and LAD, left radial graft to the first obtuse marginal, saphenous vein graft to the posterior descending artery. He is seen upon arrival to the intensive care unit. He has a #9 endotracheal tube. He is currently on SIMV mode of 14, tidal volume 600, 100% FiO2 and a PEEP of 5. Arterial blood gases reveal a P O2 of 173, pCO2 48 and a pH of 7.27. White count 16.9. Hemoglobin 12.1. INR 1.2. Bicarb 20. Creatinine 0.80. He is currently on Dexmedetomidine at 0.4 mcg/kg/h. Insulin drip at 6 units per hour. Cardizem drip at 10 mg per hour. Maintenance lactated Ringer's at 50 MLS per hour. Current heart rate 60 sinus rhythm, blood pressure 131/72, PA pressure 45/27, CVP 24. Chest x-ray reveals streak atelectasis at the left midlung. Reevaluated today on 01/19/2018, patient is doing relatively well, extubated last night. Hours after his surgery uneventfully. He tolerated the extubation well. Chest x-ray today is reassuring. Clinically the patient is doing great. Denies any shortness of breath no cough no wheezing no chest pain. Labs were reviewed hemoglobin is 11.5 WBC count is 22.3. Basic metabolic profile and renal profile are normal. Reevaluated today on 01/20/2018, patient is doing great, relatively asymptomatic , his postoperative course has been basically relatively uneventful. Patient is hemodynamically stable, not requiring any pressors. No complaints, had poor sleep last night. And related in the hallway earlier today without any difficulty. Reevaluated today on 01/21/2018, patient is doing quite well, had an episode of atrial fibrillation last night, placed on amiodarone for about 4 hours, patient converted to normal sinus rhythm, and he remains in sinus rhythm at this point. Patient is asymptomatic, no cough no wheezing no shortness of breath no chest pain, chest x-ray is reassuring, and he is ambulating down the hallway quite well. All chest tubes have been removed. Reevaluated today on 01/22/2018, patient is doing great, no cough no wheezing no shortness of breath, has been ambulating significantly in the hallway. Patient is being considered for discharge today. Chest x-ray from today was reviewed minimal residual atelectasis at the left perihilar area. Otherwise no major issues. Objective - Vital Signs Vital signs: Vital Signs Temp 99.7 F H 01/22/18 08:50 Pulse 91 01/22/18 08:50 Resp 18 01/22/18 08:50 BP 124/78 01/22/18 08:50 Pulse Ox 96 01/22/18 08:50 Intake & Output 01/21/18 01/22/18 01/22/18 18:59 06:59 18:59 Intake Total 462 259 240 Output Total 1151 400 Balance -689 259 -160 Weight 109 kg Intake: Intake, IV Titration 259 Amount Amiodarone 450 mg In 259 Dextrose 5% in Water 250 ml @ 1 MG/MIN 34.53 mls/ hr IV .[id number] [facility] Rx#: [id number] Oral 462 240 Output: Urine 1150 400 Stool 1 Other: Voiding Method Urinal Toilet Urinal # Voids 2 ABP, PAP, CO, CI - Last Documented Arterial Blood Pressure 129/59 Pulmonary Artery Pressure 24/13 Cardiac Output 7.5 Cardiac Index 3.2 - Exam Physical Exam: 67-year-old white male in no distress. Head: Atraumatic, normocephalic. HEENT:[Neck is supple.] [No neck masses.] [No thyromegaly.] [No JVD.] PERRLA, EOMI, no icterus. Chest: Clear throughout, no crackles, no rhonchi no wheezes. Cardiac Exam: [Normal S1 and S2, no S3 gallop, no murmur.] Abdomen: [Soft, nontender, no megaly, no rebound, no guarding, normal bowel sounds.] Extremities: [No clubbing, no edema, no cyanosis.] Neurological Exam: [No focal neurologic deficit. Psychiatric: Normal mood affect and mental status examination. ] - Labs CBC & Chem 7: 01/22/18 05:48 01/22/18 05:48 Labs: Abnormal Lab Results - Last 24 Hours (Table) 01/21/18 01/21/18 01/22/18 Range/Units 16:28 20:19 01:26 WBC (3.8-10.6) k/uL RBC (4.30-5.90) m/uL Hgb (13.0-17.5) gm/dL Hct (39.0-53.0) % Neutrophils # (1.3-7.7) k/uL Eosinophils # (0-0.7) k/uL Chloride (98-107) mmol/L Glucose (74-99) mg/dL POC Glucose (mg/dL) 125 H 169 H 112 H (75-99) mg/dL Magnesium (1.6-2.3) mg/dL Total Protein (6.3-8.2) g/dL 01/22/18 01/22/18 01/22/18 Range/Units 05:48 05:48 06:08 WBC 13.7 H (3.8-10.6) k/uL RBC 3.80 L (4.30-5.90) m/uL Hgb 11.3 L (13.0-17.5) gm/dL Hct 35.4 L (39.0-53.0) % Neutrophils # 10.1 H (1.3-7.7) k/uL Eosinophils # 1.1 H (0-0.7) k/uL Chloride 109 H (98-107) mmol/L Glucose 135 H (74-99) mg/dL POC Glucose (mg/dL) 142 H (75-99) mg/dL Magnesium 2.4 H (1.6-2.3) mg/dL Total Protein 6.0 L (6.3-8.2) g/dL Assessment and Plan Assessment: #1 Coronary artery disease, status post coronary artery bypass grafting 4 with sequential SEXTON to the diagonal and LAD, left radial artery graft to the first obtuse marginal, saphenous vein graft to posterior descending coronary artery. Postop day #4 #2 history of bladder cancer status post transurethral resection bladder tumor followed by BCG treatment. #3 Hyperlipidemia. #4 History of nephrolithiasis. #5 Degenerative arthritis. #6 minimal postoperative atelectasis, expected postoperative findings, post CABG. Patient will continue incentive spirometry. Recommendation: Agree with discharge planning today, follow up on outpatient basis. Continue ambulation, and continue incentive spirometry on outpatient basis. Time with Patient: Less than 30
[2018-01-22 11:40] LABS: Glucose,Whole Blood 111 mg/dL (75-99)
== END 2018-01-22 12:59 | disposition home health service (06) | DRG 236 ==
LOC: 2ORMAIN 05:35 → 6ICU 12:46 → 6SEL 01-21 10:00
PROVIDERS: ADMIT Thoracic Surgery (Cardiothoracic Vascular Surgery); ATTEND Thoracic Surgery (Cardiothoracic Vascular Surgery)
PROC: 02110Z9 Bypass Coronary Artery, Two Arteries from Left Internal Mammary, Open Approach (ICD-10-PCS; principal; 2018-01-18 08:00)
PROC: 02100AW Bypass Coronary Artery, One Artery from Aorta with Autologous Arterial Tissue, Open Approach (ICD-10-PCS; principal; 2018-01-18 08:00)
PROC: 06BQ3ZZ Excision of Left Saphenous Vein, Percutaneous Approach (ICD-10-PCS; principal; 2018-01-18 08:00)
PROC: 021009W Bypass Coronary Artery, One Artery from Aorta with Autologous Venous Tissue, Open Approach (ICD-10-PCS; principal; 2018-01-18 08:00)
PROC: B246ZZ4 Ultrasonography of Right and Left Heart, Transesophageal (ICD-10-PCS; principal; 2018-01-18 08:00)
PROC: 03BC3ZZ Excision of Left Radial Artery, Percutaneous Approach (ICD-10-PCS; principal; 2018-01-18 08:00)
DX: I25.118 Atherosclerotic heart disease of native coronary artery with other forms of angina pectoris (principal); I25.82 Chronic total occlusion of coronary artery; E78.5 Hyperlipidemia, unspecified; I10 Essential (primary) hypertension; E78.00 Pure hypercholesterolemia, unspecified; M19.90 Unspecified osteoarthritis, unspecified site; I48.0 Paroxysmal atrial fibrillation; E66.9 Obesity, unspecified; Z68.30 Body mass index [BMI] 30.0-30.9, adult; Z85.51 Personal history of malignant neoplasm of bladder; Z87.442 Personal history of urinary calculi; Z82.49 Family history of ischemic heart disease and other diseases of the circulatory system; Z91.013 Allergy to seafood; Z79.82 Long term (current) use of aspirin; Z79.899 Other long term (current) drug therapy
CPT/HCPCS: 71045; 71046; 80053; 82330; 82805; 83735; 85025; 85520; 85610; 85730; 86850; 86891; 86900; 86901; 86920; 94002; 94640; 94760

== ENCOUNTER → 2018-06-14 | Outpatient (CLI) | payer MEDICARE, OTHER ==
--- NOTE | 2018-06-14 11:25 | XR ---
EXAMINATION TYPE: XR chest 2V DATE OF EXAM: 06/14/2018 COMPARISON: January 22, 2018 HISTORY: Shortness of breath TECHNIQUE: Frontal and lateral views of the chest are obtained. FINDINGS: Scattered senescent parenchymal changes noted. No evidence for infiltrate. No evidence for atelectasis. Heart size is stable. Mediastinal structures are stable and grossly unremarkable. No evidence for hilar prominence. Degenerative changes dorsal spine. IMPRESSION: 1. No evidence for acute pulmonary disease.
== END ==
LOC: RADXRMAIN 10:57
PROVIDERS: ATTEND Nurse Practitioner Acute Care
DX: R07.9 Chest pain, unspecified (principal)
CPT/HCPCS: 71046

== ENCOUNTER → 2018-06-29 | Outpatient (CLI) | payer MEDICARE ==
[2018-06-29 11:08] LABS: Basophils # (A) 0.1 k/uL (0-0.2); Basophils % (A) 1 %; Eosinophils # (A) 0.4 k/uL (0-0.7); Eosinophils % (A) 4 %; HCT 44.8 % (39.0-53.0); Lymphocytes # (A) 2.2 k/uL (1.0-4.8); Lymphocytes % (A) 24 %; MCHC 31.3 g/dL (31.0-37.0); MCV 89.5 fL (80.0-100.0); Mean Platelet Volume 7.4; Monocytes # (A) 0.5 k/uL (0-1.0); Monocytes % (A) 6 %; Neutrophils % (A) 65 %; Platelet Count 272 k/uL (150-450); RBC 5.01 m/uL (4.30-5.90); RDW 14.2 % (11.5-15.5); WBC 9.3 k/uL (3.8-10.6)
[2018-06-29 11:27] LABS: Magnesium 2.4 mg/dL (1.6-2.3); Potassium 5.4 mmol/L (3.5-5.1)
== END | disposition home or self-care (01) ==
LOC: LABPAT 10:00
PROVIDERS: ATTEND Thoracic Surgery (Cardiothoracic Vascular Surgery)
DX: Z01.812 Encounter for preprocedural laboratory examination (principal); R07.9 Chest pain, unspecified
CPT/HCPCS: 36415; 80051; 82565; 83735; 84520; 85025

== ENCOUNTER → 2018-07-06 | Day surgery (SDC) | payer MEDICARE, OTHER ==
[2018-07-05 08:36] VITALS: BMI 28.7
[~2018-07-06] MED LIST changes: -ALBUMIN HUMAN 25% 50 ML IV ONE; -ALBUMIN HUMAN 5% 500 ML IVPB ONE; -ASPIRIN 325 MG TAB PO ONE; -ATORVASTATIN 10 MG TAB PO ONE; -CALCIUM CHLORIDE 100 MG/ML 10 ML SYRINGE IV ONE; -CARDIOPLEGIC SOLN (K+ 16 MEQ/L 1,000 ML with SODIUM BICARB (1 MEQ/ML) 20 ML, LIDOCAINE ... PERFUSION ONE; -CHLORHEXIDINE GLUCONATE 15 ML CUP MUCOUS MEM ONE; -CLEVIDIPINE BUTYRATE 25 MG in EMPTY BAG 1 BAG IV ONE; -DILTIAZEM 125 MG in SODIUM CHLORIDE 0.9% 100 ML IV ONE; -HEPARIN SODIUM 1,000 UN/ML (10ML VL) IV ONE; -HEPARIN SODIUM,PORCINE 5,000 UNIT in SODIUM CHLORIDE 0.9% 500 ML IV ONE; +HYDROmorphone 0.5 MG/0.5 ML SYRINGE IVP PRN; -INSULIN REGULAR 100 UNIT in SODIUM CHLORIDE 0.9% 100 ML IV ONE; -LACTATED RINGERS 1,000 ML IV ONE; +LACTATED RINGERS 1,000 ML IV SCH; +LIDOCAINE 1% INJ 10MG/ML (20 ML MDV) ONE; -MAGNESIUM SULFATE MG 500 MG/ML VIAL IV ONE; -MANNITOL 25% 12.5 GM/50 ML VIAL IV ONE; -METOPROLOL TARTRATE 12.5 MG TAB PO ONE; +MIDAZOLAM (PF) 2 MG/2 ML VIAL IV PRN; -MIDAZOLAM 2 MG/2 ML VIAL IV PRN; +MIDAZOLAM 2 MG/2 ML VIAL ONE; -NITROGLYCERIN-D5W PMX 25 MG/250 ML BTL IV ONE; -NITROGLYCERIN-D5W PMX 50 MG in DEXTROSE/WATER 1 250ML.BAG IV ONE; -NOREPINEPHRINE 4 MG in SODIUM CHLORIDE 0.9% 250 ML IV ONE; -PAPAVERINE 360 MG in SODIUM CHLORIDE 0.9% 90 ML IV ONE; -PHENYLEPHRINE 40 MG in SODIUM CHLORIDE 0.9% 250 ML IV ONE; -PHENYLEPHRINE-0.9% NACL SYG 1 MG/10 ML SYRINGE IV ONE; +PHENYLEPHRINE-0.9% NACL SYG 1 MG/10 ML SYRINGE ONE; -PROPOFOL 1,000 MG/100 ML VIAL IV ONE; +PROPOFOL 10 MG/ML 20 ML VIAL IV ONE; -PROTAMINE SULFATE 10 MG/ML 25 ML VIAL IV ONE; -PROTAMINE SULFATE 250 MG in EMPTY BAG 1 BAG IV ONE; -SODIUM BICARB 8.4% 50 ML SYR (1 MEQ/ML) IV ONE; -SODIUM CHLORIDE 0.9% 1,000 ML IV ONE; +SUCCINYLCHOLINE CHLORIDE VIAL 200 MG/10 ML VIAL IV ONE; -TRANEXAMIC ACID 2,000 MG in SODIUM CHLORIDE 0.9% 180 ML IV ONE; +ceFAZolin 1,000 MG in SODIUM CHLORIDE 0.9% 1,000 ML IRRIGATION ONE; -ceFAZolin 1,000 MG in SODIUM CHLORIDE 0.9% IRRIGATIO 1,000 ML IRRIGATION ONE; -ceFAZolin 2,000 MG in SODIUM CHLORIDE 0.9% 30 ML IVPB ONE; -fentaNYL (PF) 50 MCG/ML 2 ML AMP IVP PRN; +fentaNYL (PF) 50 MCG/ML 2 ML AMP ONE
[2018-07-06 07:49] VITALS: RESP 16
--- NOTE | 2018-07-06 10:24 | P.OP ---
Date of Procedure: 07/06/18 Preoperative Diagnosis: Chest pain, sternal nonunion Postoperative Diagnosis: Same Procedure(s) Performed: Sternal wire removal, ORIF of's sternal body with plates, bilateral pectoralis major myocutaneous advancement flap closure Implants: Sternal plates 3 Anesthesia: NIALL Surgeon: Larry Saldana Geriatric Nursing Assistant #1: Magnus Norman Estimated Blood Loss (ml): 5 IV fluids (ml): 600 Urine output (ml): 0 Pathology: none sent Condition: stable Disposition: PACU Indications for Procedure: 68-year-old male who was 8 months status post coronary bypass surgery. He complains of pain with usage of his arms. This is been persistent and not improving. Physical examination demonstrates stable sternum with no clinical. Patient does have pain with pressure on the sternum. There is no evidence of infection erythema redness increased warmth or drainage. Sternal wire removal was indicated for placation patient's pain. Operative Findings: 8 sternal wires were identified corresponding with the x-ray findings. They were removed. The uppermost manubrial wire was broken. Remaining wires were intact. The manubrium was stable. The sternal body was nonhealed with no evidence of any connective tissue between the 2 sternal leaves. On removing the wires, the 2 halves of the sternal body moved independently and there was about a half a centimeter gap between the 2 through which could be seen the mediastinal structures. There was no evidence of infection. Description of Procedure: The patient was brought to the operating room, placed supine on the operating table, anesthetized and intubated. The anterior sternum and lower neck were sterilely prepped and draped. The old sternal incision was opened from the top of the incision to the xiphoid. Incision was carried down through skin and subcutaneous tissue with the Bovie until the wires were encountered. The 8 sternal wires were identified. The 3 manubrial wires were removed. The uppermost manubrial wire was broken. The other 2 were intact. The 6 sternal body wires were then removed. They were all intact. On removing the sternal body wires, the body of the sternum . There was no evidence of bone healing or any soft tissue healing between the 2 leaves of the sternum. Was decided to proceed with sternal plating of the sternal body. The sternal body was approximated and secured with 3 sternal plates. A V plate was used at the superior and inferior portion of the sternal body and a box plate was used in the center of the sternal body. 3 16 mm screws were used for the upper V plate. There was a chronic fracture of the upper portion of the sternal body near one of the screws for the upper body plate and the screw hole was not filled with a screw. 4 14 mm screws were used to secure the box plate and 4 14 mm screws were used to secure the lower V plate. Excellent sternal approximation was achieved and the sternum was very stable. Pectoralis major muscles were undercut from the sternum and medial portions of the costal cartilages bilaterally. This allowed them to be advanced to the midline. The pectoralis major's were reapproximated in the midline above the sternum and plates with [id number] 0 Vicryl sutures. Subcutaneous tissues were closed with 2-0 Vicryl. The skin was closed with running 3-0 Vicryl subcuticular stitch. Excellent he is hemostasis of been obtained. Prior to closure we irrigated with antibiotic solution. Patient was extubated and transferred to recovery in stable condition. Plan - Discharge Summary Discharge Rx Participant: No New Discharge Prescriptions: No Action Multivitamin [Men's Multi-Vitamin] 1 tab PO DAILY Aspirin 81 mg PO DAILY Rosuvastatin [Crestor] 10 mg PO HS Discharge Medication List Multivitamin [Men's Multi-Vitamin] 1 tab PO DAILY 01/13/18 [History] Aspirin 81 mg PO DAILY 07/05/18 [History] Rosuvastatin [Crestor] 10 mg PO HS 07/05/18 [History]
[2018-07-06 10:45] VITALS: TEMP 97
[2018-07-06 13:14] VITALS: BP 138/72; PULSE 70
== END | disposition home or self-care (01) ==
LOC: OR 07:38
PROVIDERS: ATTEND Thoracic Surgery (Cardiothoracic Vascular Surgery)
DX: T85.848A Pain due to other internal prosthetic devices, implants and grafts, initial encounter (principal); I25.10 Atherosclerotic heart disease of native coronary artery without angina pectoris; I10 Essential (primary) hypertension; E78.5 Hyperlipidemia, unspecified; Z85.51 Personal history of malignant neoplasm of bladder; Z95.1 Presence of aortocoronary bypass graft; Z79.82 Long term (current) use of aspirin; Z79.899 Other long term (current) drug therapy; Z91.013 Allergy to seafood
CPT/HCPCS: 84132; 10120; 21899; J1100; J2405; J0690

== ENCOUNTER → 2018-10-18 | Outpatient (CLI) | payer MEDICARE ==
--- NOTE | 2018-10-18 10:12 | XR ---
EXAMINATION TYPE: XR chest 2V DATE OF EXAM: 10/18/2018 COMPARISON: 06/14/2018 HISTORY: Shortness of breath TECHNIQUE: Frontal and lateral views of the chest are obtained. FINDINGS: Scattered senescent parenchymal changes noted. Hyperinflation compatible with COPD. No evidence for infiltrate. No evidence for atelectasis. Heart size is stable. Mediastinal structures are stable and grossly unremarkable. No evidence for hilar prominence. Degenerative changes dorsal spine. IMPRESSION: 1. No evidence for acute pulmonary disease.
== END | disposition home or self-care (01) ==
LOC: RADXRMAIN 09:46
PROVIDERS: ATTEND Internal Medicine
DX: S29.9XXA Unspecified injury of thorax, initial encounter (principal)
CPT/HCPCS: 71046

== ENCOUNTER → 2018-10-25 | Outpatient (CLI) | payer MEDICARE ==
--- NOTE | 2018-10-25 14:31 | CT ---
EXAMINATION TYPE: CT abdomen pelvis wo con DATE OF EXAM: 10/25/2018 HISTORY: Follow up bladder cancer. CT DLP: 697.5 mGycm. Automated Exposure Control for Dose Reduction was Utilized. TECHNIQUE: CT scan of the abdomen and pelvis is performed with oral but without IV contrast. COMPARISON: CT scan of abdomen and pelvis December 07, 2016 and older CTs FINDINGS: Within the limitations of a non-contrast study, the following observations are made. LUNG BASES: No significant abnormality is appreciated. LIVER/GB: Liver remains low dense relative to spleen consistent with diffuse fatty infiltration. Subc entimeter low dense lesion anteriorly axial image 30 is stable and presumed benign. PANCREAS: No significant abnormality is seen. SPLEEN: No significant abnormality is seen. ADRENALS: No significant abnormality is seen. KIDNEYS: No hydronephrosis is present bilaterally. There is possible 1 to 2 mm calculus anterior uppe r to mid pole right kidney axial image 62 and coronal image 43. No suspicious new solid or cystic yasmine al mass is identified on noncontrast CT. Stable appearing left parapelvic cysts noted. Bladder shows mild to moderate wall thickening along left aspect without intraluminal mass or calculus clearly seen . BOWEL: Oral contrast reaches level of transverse colon. No suspicious small or large bowel dilatation . GENITAL ORGANS: Prostate gland is upper limits of normal in size. Left-sided pelvic phleboliths are s een. LYMPH NODES: No greater than 1cm abdominal or pelvic lymph nodes are appreciated. OSSEOUS STRUCTURES: Moderate multilevel spurring in the visualized spine. OTHER: No significant additional abnormality is seen. IMPRESSION: No suspicious mass or adenopathy to suggest metastatic disease.
== END | disposition home or self-care (01) ==
LOC: RADCTMAIN 13:50
PROVIDERS: ATTEND Urology
DX: D49.4 Neoplasm of unspecified behavior of bladder (principal); Z88.8 Allergy status to other drugs, medicaments and biological substances; Z91.013 Allergy to seafood
CPT/HCPCS: 74176

== ENCOUNTER → 2018-11-15 | Outpatient (CLI) | payer MEDICARE ==
--- NOTE | 2018-11-15 21:31 | XR ---
EXAMINATION TYPE: XR sternum DATE OF EXAM: 11/15/2018 COMPARISON: 10/18/2018 HISTORY: 68-year-old male G89.18. Patient with discomfort in the sternal area. TECHNIQUE: 2 views FINDINGS: The patient's median sternotomy is still visible on the frontal view of the sternum. There may be hernan e widening here. Bridging remains incomplete. Sternal fixation hardware is demonstrated. There is sug gestion of some presternal soft tissue swelling. Some of the superior and inferior most fixation scre ws appear to be backed out relative to the plate. IMPRESSION: 1. Median sternotomy defect is still visible. Healing is incomplete. 2. In addition, some of the superior and inferior most fixation screws appear backed out relative to their plates. 3. Presternal soft tissue swelling. Surgical site infection would be one etiology for delayed healing . Further clinical correlation recommended.
== END | disposition home or self-care (01) ==
LOC: RADXRMAIN 14:41
PROVIDERS: ATTEND Internal Medicine
DX: M79.89 Other specified soft tissue disorders (principal); G89.18 Other acute postprocedural pain
CPT/HCPCS: 71120

== ENCOUNTER → 2019-03-20 | Outpatient (CLI) | payer MEDICARE ==
--- NOTE | 2019-03-20 21:53 | MR ---
EXAMINATION TYPE: MR knee RT wo con DATE OF EXAM: 03/20/2019 COMPARISON: NONE HISTORY: Right knee pain, inner pain for 6 months per patient. TECHNIQUE: Multiplanar, multisequence images of the knee is performed without IV contrast. FINDINGS: MEDIAL MENISCUS: Anterior horn is intact without tear. Posterior horn shows triangular and oblique si gnal extending to the inferior articular surface sagittal image 7. LATERAL MENISCUS: Anterior horn is intact without tear. Less prominent but oblique increased signal p osterior horn appears to extend to inferior articular surface sagittal image 25. CRUCIATE LIGAMENTS: The anterior and posterior cruciate ligaments are intact and unremarkable. COLLATERAL LIGAMENTS: The medial collateral ligament and lateral collateral ligament complex are inta ct and unremarkable. EXTENSOR MECHANISM: Visualized quadriceps and patellar tendons are intact. EFFUSION: No significant suprapatellar joint effusion. POPLITEAL CYST: No popliteal/stafford cyst. TRICOMPARTMENT SPACES: Mild to moderate tricompartment joint space loss with minimal spurring. CARTILAGE: Fairly well maintenance of tricompartment articular cartilage. BONE MARROW SIGNAL: No focal abnormal marrow signal is appreciated. OTHER: No additional significant abnormality is appreciated. IMPRESSION: 1. Full-thickness tear posterior horn of medial meniscus. 2. Oblique full-thickness tear posterior horn of lateral meniscus. 3. Mild to moderate tricompartment degenerative changes.
== END ==
LOC: RADMRIMAIN 07:44
PROVIDERS: ATTEND Orthopaedic Surgery
DX: S83.241A Other tear of medial meniscus, current injury, right knee, initial encounter (principal); S83.281A Other tear of lateral meniscus, current injury, right knee, initial encounter; M25.861 Other specified joint disorders, right knee

== ENCOUNTER → 2019-04-09 | Outpatient (CLI) | payer MEDICARE ==
[2019-04-09 11:19] LABS: Basophils # (A) 0.1 k/uL (0-0.2); Basophils % (A) 1 %; Eosinophils # (A) 0.2 k/uL (0-0.7); Eosinophils % (A) 3 %; HCT 46.7 % (39.0-53.0); HGB 15.4 gm/dL (13.0-17.5); Lymphocytes # (A) 2.2 k/uL (1.0-4.8); Lymphocytes % (A) 30 %; MCH 30.5 pg (25.0-35.0); MCV 92.5 fL (80.0-100.0); Mean Platelet Volume 6.9; Monocytes # (A) 0.4 k/uL (0-1.0); Monocytes % (A) 6 %; Neutrophils # (A) 4.3 k/uL (1.3-7.7); Neutrophils % (A) 59 %; Platelet Count 261 k/uL (150-450); RBC 5.05 m/uL (4.30-5.90); RDW 12.8 % (11.5-15.5); WBC 7.4 k/uL (3.8-10.6)
[2019-04-09 17:45] LABS: Anion Gap 9.1 mmol/L (4.00-12.00); Carbon Dioxide 23.9 mmol/L (21.6-31.8); Potassium 4.9 mmol/L (3.5-5.5)
== END | disposition home or self-care (01) ==
LOC: LABWHC1 09:52
PROVIDERS: ATTEND Orthopaedic Surgery
DX: Z01.812 Encounter for preprocedural laboratory examination (principal); M23.91 Unspecified internal derangement of right knee
CPT/HCPCS: 36415; 80051; 85025

== ENCOUNTER 2019-05-02 07:36 | Day surgery (SDC) | payer MEDICARE ==
[2019-04-30 15:35] VITALS: BMI 29.5
--- NOTE | 2019-05-01 18:24 | HP ---
HISTORY AND PHYSICAL REASON FOR ADMISSION: Surgery is 05/02/2019 HISTORY OF PRESENT ILLNESS: Dick Malloy is a 69-year-old patient seen with progressive right knee pain. We discussed options. He elected to proceed with right knee arthroscopy. Consent was obtained. PAST MEDICAL HISTORY: Hyperlipidemia. PAST SURGICAL HISTORY: Left knee arthroscopy. The left shoulder arthroscopy, coronary artery bypass surgery. MEDICATIONS: Crestor, aspirin. ALLERGIES: SHELLFISH. SOCIAL HISTORY: Denies tobacco use. PHYSICAL EXAMINATION: Evaluation of the right knee is range of motion is 0-120. He has a mild effusion. Tenderness along the medial lateral joint lines. Positive medial Arianna's. Positive lateral Arianna's. Ligaments are stable. Hip rotation is without pain. Distal neurovascular exam is intact. RADIOGRAPHS: Right knee mild osteoarthritis. MRI right knee medial and lateral meniscal tears. IMPRESSION: 1. Internal derangement, right knee with medial and lateral meniscal tears. 2. Hyperlipidemia. PLAN: Right knee arthroscopy with partial meniscectomy and debridement. Surgery scheduled for 05/02/2019. MMODL / IJN: [id number] /
[~2019-05-02 07:36] MED LIST changes: -LIDOCAINE 1% INJ 10MG/ML (20 ML MDV) ONE; -MIDAZOLAM (PF) 2 MG/2 ML VIAL IV PRN; +MIDAZOLAM 2 MG/2 ML VIAL IV PRN; -MIDAZOLAM 2 MG/2 ML VIAL ONE; -PHENYLEPHRINE-0.9% NACL SYG 1 MG/10 ML SYRINGE ONE; -PROPOFOL 10 MG/ML 20 ML VIAL IV ONE; +SCOPOLAMINE 1.5MG/72HR PATCH TRANSDERM ONE; -SUCCINYLCHOLINE CHLORIDE VIAL 200 MG/10 ML VIAL IV ONE; -ceFAZolin 1,000 MG in SODIUM CHLORIDE 0.9% 1,000 ML IRRIGATION ONE; -ceFAZolin IN SWFI 2 GM/20 ML SYRINGE IVP ONE; -fentaNYL (PF) 50 MCG/ML 2 ML AMP IV PRN; -fentaNYL (PF) 50 MCG/ML 2 ML AMP ONE
[2019-05-02 08:18] VITALS: RESP 16
[2019-05-02] MEDS ORDERED: BUPIVACAINE (PF) 0.25% 30 ML VIAL SQ ONE ×2 (09:14→09:52)
[2019-05-02] MEDS ORDERED: ONDANSETRON 4 MG/2 ML VIAL ONE (09:16)
[2019-05-02] MEDS ORDERED: LIDOCAINE 1% INJ 10MG/ML (20 ML MDV) ONE (09:16)
[2019-05-02] MEDS ORDERED: PROPOFOL 10 MG/ML 20 ML VIAL IV ONE (09:16)
[2019-05-02] MEDS ORDERED: SUCCINYLCHOLINE CHLORIDE VIAL 200 MG/10 ML VIAL IV ONE (09:16)
[2019-05-02] MEDS ORDERED: MIDAZOLAM 2 MG/2 ML VIAL ONE (09:16)
[2019-05-02] MEDS ORDERED: fentaNYL (PF) 50 MCG/ML 2 ML AMP ONE (09:16)
[2019-05-02 10:14] VITALS: TEMP 96.8
--- NOTE | 2019-05-02 10:27 | P.OP ---
Date of Procedure: 05/02/19 Preoperative Diagnosis: Internal derangement right knee Postoperative Diagnosis: 1. Tear medial meniscus right knee 2. Grade 4 chondromalacia medial femoral condyle right knee 3. Grade 4 chondromalacia femoral sulcus right knee 4. Reactive synovitis medial, lateral and suprapatellar compartments right knee Procedure(s) Performed: 1. Arthroscopic partial medial meniscectomy right knee 2. Arthroscopic chondroplasty medial femoral condyle right knee 3. Arthroscopic microfracture medial femoral condyle right knee 4. Arthroscopic partial synovectomy medial, lateral and suprapatellar compartments right knee Anesthesia: KENNYA, local Surgeon: Jaswinder Bower Estimated Blood Loss (ml): 5 Pathology: none sent Condition: stable Disposition: PACU Indications for Procedure: 69-year-old patient seen with progressive right knee pain. We discussed treatment options. He elected to proceed with arthroscopy. Operative Findings: see description of procedure Description of Procedure: Patient was taken to the operative suite. Patient underwent a general anesthetic by the department of anesthesia. Patient was given preoperative antibiotics. The right lower extremity was placed in a well-padded arthroscopic leg lugo. The right leg was prepped and draped in the normal sterile orthopedic fashion. A lateral parapatellar and suprapatellar incision was made. Trochars were inserted. Arthroscopy was initiated. Suprapatellar pouch revealed diffuse thick reactive synovitis. The patellofemoral joint appeared to articulate congruently. There was grade 3 chondromalacia of the patella and grade 4 chondromalacia femoral sulcus with some peripheral osteochondral tears along the medial aspect. The scope was guided into the medial gutter. No loose bodies or plica were identified. The scope was then guided into the medial compartment. A medial parapatellar incision was made. Trocar inserted followed by probe. There was a radial tear posterior horn medial meniscus. There were grade 3 and 4 chondromalacia changes medial femoral condyle with some osteochondral flap tears anteriorly. There was thick reactive synovitis anteriorly. I performed a partial medial meniscectomy. I performed a partial synovectomy decompressing reactive synovitis. I performed a chondroplasty medial femoral condyle. There was an area of exposed bone anterior aspect medial femoral condyle. I performed a microfracture that area penetrated bone with resultant bleeding microfracture site. The residual meniscus was stable. The residual osteochondral surface was stable. There was good decompression of synovitis. Scope and probe were then guided into the intercondylar notch. Cruciates were identified, probed and found to be stable. The scope and probe were then guided into lateral compartment. Was some mild superficial fraying of the lateral meniscus. There was thick reactive synovitis anteriorly. There were grade 1/2 chondromalacia changes lateral compartment with no osteochondral tears present. I performed a partial synovectomy decompressing the reactive synovitis. I debrided that mild fraying of the meniscus with a motorized shaver. There was good decompression synovitis. The scope was in guided back into the suprapatellar compartment. I introduced a motorized shaver into the suprapatellar compartment. I debrided some piecemeal fragments of meniscus I encountered. I performed a chondroplasty of the femoral sulcus. I performed a partial synovectomy decompressing the reactive synovitis. The shaver was removed. I took one more look around the entire knee, no residual debris. Instruments were now removed from the joint. The joint was infiltrated with .25% Marcaine. Steri-Strips were applied to the portal sites. Sterile dressings were applied. The patient was placed into a ELIZABETH hose. No tourniquet was utilized. The patient was awakened, transferred to a bed and taken to recovery stable satisfactory condition.
[2019-05-02 12:03] VITALS: BP 124/77; PULSE 76
== END 2019-05-02 11:59 | disposition home or self-care (01) ==
LOC: OR 07:36
PROVIDERS: ATTEND Orthopaedic Surgery
DX: M23.321 Other meniscus derangements, posterior horn of medial meniscus, right knee (principal); M94.261 Chondromalacia, right knee; M65.861 Other synovitis and tenosynovitis, right lower leg; M22.41 Chondromalacia patellae, right knee; I25.10 Atherosclerotic heart disease of native coronary artery without angina pectoris; E78.00 Pure hypercholesterolemia, unspecified; E78.5 Hyperlipidemia, unspecified; Z95.1 Presence of aortocoronary bypass graft; Z79.82 Long term (current) use of aspirin; Z79.899 Other long term (current) drug therapy; Z98.890 Other specified postprocedural states; Z91.013 Allergy to seafood; Z88.8 Allergy status to other drugs, medicaments and biological substances; Z82.49 Family history of ischemic heart disease and other diseases of the circulatory system; Z80.52 Family history of malignant neoplasm of bladder
CPT/HCPCS: 29880; 29879; J2250; J0330; J1100; J0690; J2405; J2001; J3010; J2704

== ENCOUNTER → 2019-05-14 | Outpatient (CLI) | payer MEDICARE ==
--- NOTE | 2019-05-14 16:22 | XR ---
EXAMINATION TYPE: XR sternum, 2 views DATE OF EXAM: 05/14/2019 COMPARISON: 11/15/2018 HISTORY: 69-year-old male pain over sternum, sternal wires removed and plates put in. TECHNIQUE: 2 views FINDINGS: Sternal plate and screw fixation is redemonstrated. Underlying post CABG changes. A vertically orient ed sternotomy defect remains well-visualized spanning both the sternal manubrium as well as the body of the sternum. Some presternal soft tissue swelling is difficult to exclude. IMPRESSION: Redemonstrated sternal plate and screw fixation. Persistent, nonunited vertically oriented sternotomy defect. Difficult to exclude presternal soft tissue swelling. Correlate to exclude any fluctuant pal pable abnormality here.
== END | disposition home or self-care (01) ==
LOC: RADXRMAIN 13:00
PROVIDERS: ATTEND Family Medicine
DX: R52 Pain, unspecified (principal); Z98.890 Other specified postprocedural states
CPT/HCPCS: 71120

== ENCOUNTER → 2019-12-05 | Day surgery (SDC) | payer MEDICARE ==
[2019-12-03 13:23] VITALS: BMI 29.5
[~2019-12-05] MED LIST changes: -DEXAMETHASONE SOD PHOSPHATE 10 MG/ML 1 ML VIAL IV ONE; -HYDROmorphone 0.5 MG/0.5 ML SYRINGE IVP PRN; +LIDOCAINE 1% (10MG/ML) FOR IV START INTRADERMA PRN; -LIDOCAINE 1% 20 ML VIAL (10MG/ML) FOR IV START INTRADERMA PRN; -MIDAZOLAM 2 MG/2 ML VIAL IV PRN; -ONDANSETRON 4 MG/2 ML VIAL IVP ONE; +PROPOFOL 10 MG/ML 20 ML VIAL IV ONE; -SCOPOLAMINE 1.5MG/72HR PATCH TRANSDERM ONE
[2019-12-05 09:35] VITALS: RESP 16; TEMP 96.6
--- NOTE | 2019-12-05 10:35 | P.PCN ---
Date of Procedure: 12/05/19 Procedure(s) Performed: BRIEF HISTORY: Patient is a 69-year-old pleasant male scheduled for an elective colonoscopy as a part of screening for colorectal neoplasia. PROCEDURE PERFORMED: Colonoscopy. PREOPERATIVE DIAGNOSIS: screening for colon cancer. IV sedation per Anesthesia. PROCEDURE: After informed consent was obtained, the patient, was brought into the endoscopy unit. IV sedation was administered by Anesthesia under continuous monitoring. Digital rectal examination was normal. Initially the Olympus CF-160 flexible video colonoscope was then inserted in the rectum, gradually advanced into the cecum without any difficulty. Careful examination was performed as the scope was gradually being withdrawn. Ileocecal valve and the appendiceal orifice were visualized and appeared normal. Prep was excellent. Mucosa of the cecum, ascending colon, transverse colon, descending colon, sigmoid colon, and rectum appeared normal. Retroflexion was performed in the rectum and small internal hemorrhoids were seen. The patient tolerated the procedure well. IMPRESSION: Normal-appearing colon from rectum to cecum with no evidence of colorectal neoplasia . Small internal hemorrhoids. RECOMMENDATIONS: Findings of this examination were discussed with the patient her family. She was advised to have a repeat screening colonoscopy in 10 years.
[2019-12-05 10:53] VITALS: BP 116/77; PULSE 57
== END ==
LOC: ORWHC2ENDO 09:05
PROVIDERS: ATTEND Internal Medicine Gastroenterology
DX: Z12.11 Encounter for screening for malignant neoplasm of colon (principal); K64.8 Other hemorrhoids; Z80.0 Family history of malignant neoplasm of digestive organs; I25.10 Atherosclerotic heart disease of native coronary artery without angina pectoris; Z95.1 Presence of aortocoronary bypass graft; Z88.8 Allergy status to other drugs, medicaments and biological substances; Z98.890 Other specified postprocedural states
CPT/HCPCS: J2704; G0105

== ENCOUNTER → 2020-05-01 | Outpatient (CLI) | payer MEDICARE ==
--- NOTE | 2020-05-01 11:11 | CT ---
EXAMINATION TYPE: CT abdomen pelvis wo con DATE OF EXAM: 05/01/2020 HISTORY: Bladder CA CT DLP: 862.4 mGycm. Automated Exposure Control for Dose Reduction was Utilized. TECHNIQUE: CT scan of the abdomen and pelvis is performed with oral but without IV contrast. COMPARISON: CT abdomen and pelvis October 25, 2018 and older CTs FINDINGS: Within the limitations of a non-contrast study, the following observations are made. LUNG BASES: Tiny dependent stones and/or gallbladder sludge redemonstrated. Liver heterogeneously hyp odense consistent with mild diffuse fatty infiltration. Subcentimeter low dense lesion anteriorly daniela ge 17 unchanged from prior presumed benign. LIVER/GB: No significant abnormality is appreciated. PANCREAS: No significant abnormality is seen. SPLEEN: No significant abnormality is seen. ADRENALS: No significant abnormality is seen. KIDNEYS: Cortical thinning bilaterally. No hydronephrosis seen bilaterally. Stable parapelvic cysts c entrally left kidney. Slightly eccentric curvilinear thickening left posterior inferior bladder wall unchanged from last few studies. No new mass or calculus. BOWEL: Oral contrast reaches level of the proximal left colon. No suspicious small or large bowel dil atation seen. GENITAL ORGANS: Prostate gland is stable and upper limits of normal in size. Stable left-sided pelvic phleboliths. LYMPH NODES: No greater than 1cm abdominal or pelvic lymph nodes are appreciated. OSSEOUS STRUCTURES: Mild to moderate disc space narrowing and vacuum disc phenomenon L3-L4 level. Mul tilevel facet arthropathy throughout the lumbar spine. OTHER: Mild/moderate calcified plaque of the aorta extends into branch vessels. Calcification and foc al atrophy of anterior right thigh muscle redemonstrated perhaps prior biopsy. IMPRESSION: Suspected posttreatment changes to bladder redemonstrated. No obvious new mass or adenopa thy to suggest neoplastic recurrence.
== END | disposition home or self-care (01) ==
LOC: RADCTMAIN 06:49
PROVIDERS: ATTEND Urology
DX: C67.9 Malignant neoplasm of bladder, unspecified (principal); Z88.8 Allergy status to other drugs, medicaments and biological substances; Z91.013 Allergy to seafood
CPT/HCPCS: 74176; Q9967

== ENCOUNTER → 2021-01-12 | Outpatient (CLI) | payer MEDICARE ==
--- NOTE | 2021-01-12 10:27 | XR ---
EXAMINATION TYPE: XR chest 2V DATE OF EXAM: 01/12/2021 COMPARISON: 05/14/19 HISTORY: Shortness of breath TECHNIQUE: Frontal and lateral views of the chest are obtained. FINDINGS: Scattered senescent parenchymal changes noted. Hyperinflation compatible with COPD. No evidence for infiltrate. No evidence for atelectasis. Heart size is stable. Mediastinal structures are stable and grossly unremarkable. No evidence for hilar prominence. Degenerative changes dorsal spine. IMPRESSION: 1. No evidence for acute pulmonary disease.
== END | disposition home or self-care (01) ==
LOC: RADXRMAIN 10:02
PROVIDERS: ATTEND Family Medicine
DX: R07.89 Other chest pain (principal)
CPT/HCPCS: 71046

== ENCOUNTER 2021-04-15 10:04 | Emergency (ER) | payer MEDICARE ==
[2021-04-15 10:36] VITALS: BP 122/85; PULSE 66; RESP 18; TEMP 98.1
--- NOTE | 2021-04-15 11:42 | ED ---
Recheck HPI - General Chief Complaint: Recheck/Abnormal Lab/Rx Stated Complaint: Covid test Time Seen by Provider: 04/15/21 11:33 Source: patient, RN notes reviewed Mode of arrival: ambulatory Limitations: no limitations - History of Present Illness Initial Comments: Patient is a 71-year-old male presenting to the emergency department with concerns of a recent Covid exposure. Patient states him and his are recently exposed to Covid 2-3 days ago and would like to get tested. They do not have any symptoms, he said no recent fevers or chills no cough or congestion. He has been fully vaccinated. Patient just wants to be safe for thinks giving holiday. There are no further complaints. His vital signs are stable upon arrival. - Related Data Home Medications Medication Instructions Recorded Confirmed Aspirin 81 mg PO DAILY 07/05/18 12/03/19 Rosuvastatin [Crestor] 10 mg PO HS 07/05/18 12/03/19 Multivitamins, Thera [Multivitamin 1 tab PO DAILY 12/03/19 12/03/19 (formulary)] Allergies Allergy/AdvReac Type Severity Reaction Status Date / Time shellfish derived Allergy Anaphylaxis Verified 04/15/21 10:36 Dpniyxi-Uet-Cax Reductase AdvReac muscle Verified 04/15/21 10:36 Inhibitor weakness Review of Systems ROS Statement: Those systems with pertinent positive or pertinent negative responses have been documented in the HPI. ROS Other: All systems not noted in ROS Statement are negative. Past Medical History Past Medical History: Coronary Artery Disease (CAD), Cancer, Hyperlipidemia, Hypertension Additional Past Medical History / Comment(s): HX BLADDER CA w/BCG tx., more tx. in May, HX OF RENAL CALCULUS yrs ago History of Any Multi-Drug Resistant Organisms: None Reported Past Surgical History: Bladder Surgery, Coronary Bypass/CABG, Heart Catheterization, Orthopedic Surgery Additional Past Surgical History / Comment(s): Arthroscopy L Shoulder x 2; Arthroscopy L Knee X 2; Wrist surg.; BLADDER SX X 6, MIRIAM THUMB JOINTS, 2 TRIGGER FINGERS, quad bypass 2017, & then sternal wires removed & sternal plating done Past Anesthesia/Blood Transfusion Reactions: Postoperative Nausea & Vomiting (PONV) Past Psychological History: No Psychological Hx Reported Past Alcohol Use History: Occasional Past Drug Use History: None Reported - Past Family History Mother Family Medical History: Coronary Artery Disease (CAD) General Exam - General Exam Comments Initial Comments: GENERAL: Patient is well-developed and well-nourished. Patient is nontoxic and in no acute distress. HEAD: Atraumatic, normocephalic. EYES: Pupils equal round and reactive to light, extraocular movements intact, sclera anicteric, conjunctiva are normal. Eyelids were unremarkable. ENT: Moist mucous membranes. NECK: Normal range of motion, supple without lymphadenopathy or JVD. LUNGS: Unlabored respirations. Breath sounds clear to auscultation bilaterally and equal. No wheezes rales or rhonchi. HEART: Regular rate and rhythm without murmurs, rubs or gallops. ABDOMEN: Soft, nontender, normoactive bowel sounds. NEUROLOGICAL: Patient is alert and oriented x 3. SKIN: Warm, Dry, normal turgor, no rashes or lesions noted. Limitations: no limitations Course Vital Signs 04/15/21 10:33 Temperature 98.1 F Pulse Rate 66 Respiratory 18 Rate Blood Pressure 122/85 O2 Sat by Pulse 98 Oximetry Medical Decision Making - Medical Decision Making Patient 71-year-old male here requesting Covid test for recent exposure. He has no symptoms. His rapid test is negative today. He is stable for discharge. - Lab Data Lab Results 04/15/21 Range/Units 10:39 Coronavirus (PCR) Not Detected (Not Detectd) Disposition Clinical Impression: Lab test negative for COVID-19 virus, Exposure to COVID-19 virus Disposition: HOME SELF-CARE Condition: Stable Instructions (If sedation given, give patient instructions): Normal Exam (ED) Additional Instructions: Please return to the Emergency Department if symptoms worsen or any other concerns. Covid test is negative today. Is patient prescribed a controlled substance at d/c from ED?: No Referrals: Shaniqua Blackmon MD [Primary Care Provider] - 1-2 days Time of Disposition: 11:42
== END 2021-04-15 12:01 | disposition home or self-care (01) ==
LOC: EC 10:04
DX: Z20.822 Contact with and (suspected) exposure to COVID-19 (principal); I10 Essential (primary) hypertension; I25.810 Atherosclerosis of coronary artery bypass graft(s) without angina pectoris; E78.5 Hyperlipidemia, unspecified; Z79.82 Long term (current) use of aspirin; Z88.8 Allergy status to other drugs, medicaments and biological substances; Z79.899 Other long term (current) drug therapy; Z91.013 Allergy to seafood
CPT/HCPCS: 87635; 99282

== ENCOUNTER → 2021-05-20 | Outpatient (CLI) | payer MEDICARE ==
--- NOTE | 2021-05-20 08:32 | US ---
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 History of bladder Cancer with multiple Transur ethral resection EXAM MEASUREMENTS: Right Kidney: 11.7 x 6.9 x 5.6 cm Left Kidney: 11.5 x 6.2 x 5.7 cm Right Kidney: No hydronephrosis anechoic area seen in lower pole 1.1 x1.0 x 0.9 cm Left Kidney: No hydronephrosis or masses seen, prominent calyces seen lower pole Bladder: wnl Bilateral Jets seen: Yes There is no evidence for hydronephrosis at this point in time. No nephrolithiasis is seen. No solid masses are identified. The urinary bladder is anechoic. Bilateral ureteral jets are seen. IMPRESSION: Right renal cyst. Otherwise unremarkable study.
== END | disposition home or self-care (01) ==
LOC: RADUSWWP 07:35
PROVIDERS: ATTEND Urology
DX: D09.0 Carcinoma in situ of bladder (principal); N28.1 Cyst of kidney, acquired
CPT/HCPCS: 76770

== ENCOUNTER → 2021-07-14 | Outpatient (CLI) | payer MEDICARE ==
--- NOTE | 2021-07-14 20:55 | CT ---
EXAMINATION TYPE: CT chest w con DATE OF EXAM: 07/14/2021 COMPARISON: None available HISTORY: chest pain CT DLP: 456.3 mGycm Automated exposure control for dose reduction was used. TECHNIQUE: CT scan of the chest is performed with IV Contrast, patient injected with 100 mL of Isovue 300. FINDINGS: 2 mm calcified granuloma is seen at the anterior medial aspect of the left upper lobe. 3 mm nodule is seen at the anterolateral aspect of the left lower lobe (image #41, series 4). No follow-up is requi red for this nodule if low-risk patient. If high-risk patient, optional follow-up CT scan in 12 month s can be considered. Grossly unremarkable lungs otherwise. Patent central airways. No pleural or everardo cardial effusion. Previous sternotomy and mediastinal scarring. The anterior aspect of the right ventricle and the lakisha cent pericardium are apparently tethered towards the sternotomy suture best appreciated image #43, se martin 3. No gross cardiomegaly. Scattered arterial atherosclerotic calcifications. The ascending aorta measures up to 4.5 cm, please correlate with echocardiographic results. The pulmonary trunk is 3 cm. Slightly prominent thyroid gland. No pathologically enlarged lymph nodes in the chest. Tiny calculi a re seen within the gallbladder. 11 mm cyst at the anterior aspect of segment 4 of the liver. No obvio us hematoma or collection adjacent to the sternotomy site. There is mild gapping at the superior aspe ct of the sternotomy measuring up to 5 mm with milder gapping inferiorly measuring 3 mm. An elongated metallic fragment is seen at the right side of the most superior aspect of the sternum, possibly representing residual wire/prosthesis, please correlate with the operative report. 3 plates and multiple screws are seen fixing the sternotomy site. There is apparent minimal withdrawal of 2 mm or less of the following screws: Right sided screw of the upper plate, the most inferior left-sided screw of the middle plate and the 2 left-sided screws of the inferior plate. This could correspond to the patient's presentation. Degenerative changes of the mid to lower thoracic spine. IMPRESSION: Postsurgical changes as described above, please correlate with the operative report. Minimal withdraw al of 4 screws fixing the sternotomy site of 2 mm or less as detailed above, please correlate clinica lly. No bone destruction, collection or acute inflammatory changes at the sternotomy site. Tethering of th e right side of the heart and the pericardium towards the sternotomy site. Other incidental findings as described above.
== END | disposition home or self-care (01) ==
LOC: RADCTMAIN 14:12
PROVIDERS: ATTEND Family Medicine
DX: R07.89 Other chest pain (principal)
CPT/HCPCS: 82565; 84520; 71260; 36415; Q9967

== ENCOUNTER → 2022-03-05 | Outpatient (CLI) | payer MEDICARE ==
--- NOTE | 2022-03-05 15:05 | CT ---
EXAMINATION TYPE: CT angio chest DATE OF EXAM: 03/05/2022 2:48 PM COMPARISON: 07/14/2021 HISTORY: Thoracic aortic an aneurysm without rupture CT DLP: 874 mGycm Automated exposure control for dose reduction was used. CONTRAST: CTA scan of the thorax is performed without and with IV Contrast, patient injected with 100 ml mL of Isovue 370, pulmonary embolism protocol. 3-D postprocessing was utilized.. FINDINGS: The lungs are clear of consolidative, interstitial or masslike density. There is no pleural effusion, pleural thickening or pneumothorax. There is aneurysmal dilatation of the ascending thoracic aorta which measures 4.5 cm. It is unchanged compared to the prior study. There is been prior CABG surgery. Limited scanning of the upper abdomen again reveals cholelithiasis. There is a tiny nonobstructing ri ght renal calcification. There are no filling defects within the pulmonary artery and branches. IMPRESSION: 1. No change in the 4.5 cm aneurysmal dilatation of the ascending thoracic aorta. 2. No evidence of pulmonary embolism. 3. No acute cardiopulmonary disease. 4. Cholelithiasis and tiny nonobstructing right renal calcification
== END | disposition home or self-care (01) ==
LOC: RADCTMAIN 13:04
PROVIDERS: ATTEND Internal Medicine Interventional Cardiology
DX: I71.20 Thoracic aortic aneurysm, without rupture, unspecified (principal); K80.20 Calculus of gallbladder without cholecystitis without obstruction; N28.89 Other specified disorders of kidney and ureter
CPT/HCPCS: 82565; 84520; 71275; 36415; Q9967

== ENCOUNTER 2022-10-28 05:33 | Day surgery (SDC) | payer MEDICARE ==
--- NOTE | 2022-10-27 21:14 | HP ---
HISTORY AND PHYSICAL DATE OF SCHEDULED SURGERY: 10/28/2022. HISTORY OF PRESENT ILLNESS: Dick Malloy is a 72-year-old gentleman seen with progressive right shoulder pain. We discussed options for treatment. He elected to proceed with right shoulder arthroscopy. Consent regarding the procedure was obtained. PAST MEDICAL HISTORY: Hyperlipidemia. PAST SURGICAL HISTORY: Knee arthroscopy, shoulder arthroscopy, bypass surgery. DAILY MEDICATIONS: 1. Crestor. 2. Multivitamin. 3. Tylenol. ALLERGIES: Shellfish. SOCIAL HISTORY: Denies tobacco use. PHYSICAL EVALUATION OF RIGHT SHOULDER: Flexion is 150 degrees, abduction 120 degrees. External rotation is 40 degrees with weakness. Tenderness along the anterolateral acromion, rotator cuff insertion site. Impingement is positive at 70 degrees. Cross-body adduction sign is positive. Drop- arm sign is positive. Distal neurovascular exam is intact. RADIOGRAPHS: Right shoulder radiographs revealed a type 2 acromion with severe acromioclavicular joint osteoarthritis. MRI right shoulder revealed impingement acromioclavicular joint osteoarthritis which was severe and a partial rotator cuff tendon tear. IMPRESSION: 1. Right shoulder impingement with rotator cuff tear. 2. Right shoulder acromioclavicular joint osteoarthritis. 3. Hyperlipidemia. PLAN: Right shoulder arthroscopy with subacromial decompression, possible arthroscopic rotator cuff repair, Brandie procedure, and debridement. MMODL / IJN: [id number] /
[2022-10-28] MEDS ORDERED: droPERidol 5 MG/2 ML VIAL IVP ONE (06:10)
[2022-10-28] MEDS ORDERED: LACTATED RINGERS 1,000 ML IV SCH (06:10)
[2022-10-28] MEDS ORDERED: DEXAMETHASONE SOD PHOSPHATE 4 MG/ML 1 ML VIAL IV ONE (06:10)
[2022-10-28] MEDS ORDERED: ONDANSETRON 4 MG/2 ML VIAL IVP ONE (06:10)
[2022-10-28] MEDS ORDERED: HYDROmorphone 0.5 MG/0.5 ML SYRINGE IVP PRN (06:10)
[2022-10-28] MEDS ORDERED: LIDOCAINE 1% (10MG/ML) FOR IV START INTRADERMA PRN (06:10)
[2022-10-28] MEDS ORDERED: fentaNYL (PF) 50 MCG/ML 2 ML AMP IV ONE (06:59)
[2022-10-28] MEDS ORDERED: MIDAZOLAM 2 MG/2 ML VIAL IV ONE (06:59)
[2022-10-28] MEDS ORDERED: DEXAMETHASONE SOD PHOSPHATE 4 MG/ML 1 ML VIAL ONE (07:24)
[2022-10-28] MEDS ORDERED: fentaNYL (PF) 50 MCG/ML 2 ML AMP ONE (07:24)
[2022-10-28] MEDS ORDERED: SUCCINYLCHOLINE CHLORIDE 200 MG/10 ML VIAL IV ONE (07:24)
[2022-10-28] MEDS ORDERED: ROPIVACAINE 5 MG/ML 30 ML VIAL ONE (07:24)
[2022-10-28] MEDS ORDERED: ePHEDrine 50 MG/ML 1 ML VIAL ONE (07:24)
[2022-10-28] MEDS ORDERED: PROPOFOL 10 MG/ML 20 ML VIAL IV ONE (07:24)
[2022-10-28] MEDS ORDERED: LIDOCAINE 2% INJ 20 MG/ML (2 ML VIAL) ONE (07:24)
[2022-10-28 09:05] VITALS: TEMP 97
--- NOTE | 2022-10-28 09:06 | P.ANPRN ---
Procedure Note - Anesthesia - Nerve Block Performed Right Interscalene Single Time Out Performed: Yes ([id number]) Date of Procedure: 10/28/22 Procedure Start Time: 07:00 Procedure Stop Time: 07:04 Location of Patient: PreOp Indication: Acute Post-Operative Pain, Requested by Surgeon Specifically requested for management of pain by DrJersey: Jaswinder Bower Sedation Type: Sedate with meaningful contact maintained Preparation: Sterile Prep Position: Supine Catheter: None Needle Types: Pajunk Needle Gauge: 21 Ultrasound used to visualize needle placement: Yes Ultrasound used to observe medication spread: Yes Injectate: 0.5% Ropivacaine (see comment for volume) (30CC + 4MG DECADRON) Blood Aspirated: No Pain Paresthesia on Injection Noted: No Resistance on Injection: Normal Image Stored and Saved: Yes Events: Uneventful and Well Tolerated
--- NOTE | 2022-10-28 09:11 | P.OP ---
Date of Procedure: 10/28/22 Preoperative Diagnosis: Right shoulder impingement Postoperative Diagnosis: 1. Right shoulder rotator cuff tear 2. Right shoulder impingement 3. Right shoulder acromioclavicular joint osteoarthritis 4. Right shoulder partial long head biceps tendon tear 5. Right shoulder superficial labral tear Procedure(s) Performed: 1. Right shoulder arthroscopic rotator cuff repair 2. Right shoulder arthroscopic subacromial decompression 3. Right shoulder arthroscopic Brandie procedure 4. Right shoulder arthroscopic biceps tenotomy 5. Right shoulder arthroscopic debridement labral tear Implants: 1Arthrex 5.5 swivel lock anchor Anesthesia: GETA, regional (Interscalene block) Surgeon: Jaswinder Bower Drill Operator Automatic #1: Roni Marc Estimated Blood Loss (ml): 7 Pathology: none sent Condition: stable Disposition: PACU Indications for Procedure: 72-year-old patient was seen with progressive right shoulder pain. After having treatment options discussed, he elected to proceed with arthroscopy. Operative Findings: see description of procedure Description of Procedure: Patient underwent an interscalene block by department of anesthesia. The patient was then taken to the operative suite. The patient underwent a general anesthetic by the department of anesthesia. The patient was placed into a lateral position and secured. There was appropriate padding of the bony prominence. Right shoulder was then prepped and draped in normal sterile orthopedic fashion. We placed the extremity in 10 pounds of longitudinal traction. A posterior incision was now made for a posterior working portal site. The trocar and cannula were inserted into the glenohumeral joint. Arthroscopy was initiated. Spinal needle was now inserted anteriorly, to ascertain the anterior working portal site. An incision was now made in that area, a trocar was inserted followed by a probe. There was some superficial tearing of the superior labrum. There were grade 1 chondromalacia changes of the glenohumeral joint. There was some partial tearing and hyperemia long head biceps tendon. The remainder the labrum appeared stable. I debrided out the superficial labral tear. I performed an arthroscopic biceps tenotomy. Residual labrum was probed and was found to be stable. Instruments were now removed from the glenohumeral joint. Utilizing the posterior working portal site, the trocar and cannula were inserted into the subacromial space. Arthroscopy initiated. I made an incision 2 fingerbreadths lateral to the acromion. I introduced my trocar followed by my ArthroCare ablator. I now began ablating thick subacromial bursal tissue, which exposed the undersurface of the anterior acromion. There was diminished subacromial space. There was a very prominent anterior acromion. A motorized bur was introduced and a subacromial decompression was performed. I also excised some osteophytes off the inferior aspect of the distal clavicle. The AC joint was visualized and noted to be fairly arthritic. The motorized bur was introduced in the anterior portal site and a Brandie procedure was performed without difficulty, decompressing the AC joint nicely. I turned my attention to the rotator cuff. There was a 1.5 cm rotator cuff tendon tear along the distal supraspinatus. I debrided the margins getting down to stable tendon tissue. I abraded the footprint with a motorized bur. With the assistance of Main MEI I passed 3 everted mattress sutures through good bites of rotator cuff tendon. I punched the hole in the footprint area for insertion of an anchor. All 6 limbs of suture were passed through the eyelet of an Arthrex 5.5 swivel lock anchor. I placed our eyelet into the pre-punched hole. I held in position while Main MEI tensioned all 6 limbs of suture and deployed the anchor with good fixation noted. All residual suture limbs were now clipped. We had good compression of the tendon along the entire footprint. Instruments now removed from the portal sites. All portal sites were approximated with nylon suture. Sterile dressings were applied followed by a shoulder sling. Roni MEI assisted in this complex case. The patient was awakened, transferred to a bed, and taken to recovery in stable condition.
[2022-10-28 10:11] VITALS: BP 127/75; PULSE 74; RESP 18
== END 2022-10-28 10:47 | disposition home or self-care (01) ==
LOC: OR 05:33
PROVIDERS: ATTEND Orthopaedic Surgery
DX: M75.111 Incomplete rotator cuff tear or rupture of right shoulder, not specified as traumatic (principal); M19.011 Primary osteoarthritis, right shoulder; S46.111A Strain of muscle, fascia and tendon of long head of biceps, right arm, initial encounter; S43.431A Superior glenoid labrum lesion of right shoulder, initial encounter; M75.41 Impingement syndrome of right shoulder; M25.711 Osteophyte, right shoulder; M94.211 Chondromalacia, right shoulder; G89.18 Other acute postprocedural pain; X58.XXXA Exposure to other specified factors, initial encounter; E78.5 Hyperlipidemia, unspecified; I25.10 Atherosclerotic heart disease of native coronary artery without angina pectoris; Z95.1 Presence of aortocoronary bypass graft; I10 Essential (primary) hypertension; Z87.442 Personal history of urinary calculi; Z85.51 Personal history of malignant neoplasm of bladder; Z79.82 Long term (current) use of aspirin; Z79.899 Other long term (current) drug therapy; Z88.8 Allergy status to other drugs, medicaments and biological substances; Z91.013 Allergy to seafood
CPT/HCPCS: 29827; 29824; 29826; 64415; C1894; C1713 ×2; J2250; J0330; J1100; J0690; J2405; J3010; J2795; J2704; J2001

== ENCOUNTER → 2022-12-15 | Outpatient (CLI) | payer MEDICARE ==
--- NOTE | 2022-12-18 09:32 | MR ---
EXAMINATION TYPE: MR knee RT wo con DATE OF EXAM: 12/15/2022 COMPARISON: 03/20/2019 HISTORY: Right TECHNIQUE: Multiplanar, multisequence imaging of the right knee is performed without IV contrast. FINDINGS: There is a new small focal area of abnormal increased signal intensity on fluid sensitive images in t he medial tibial plateau consistent with a small bone contusion. There is no discrete fracture. There has been interval development of a small joint effusion. The tear of the body and posterior horn of the medial meniscus is again seen. The lateral meniscus is intact. There is mild osteoarthritic change of all 3 compartments of the knee unchanged compared to the previ ous study. The cruciate and collateral ligaments are intact. IMPRESSION: 1. Interval development of a small bone contusion of the medial aspect of the medial tibial plateau. No discrete fracture. 2. Small joint effusion. 3. Persistent tear of the body and posterior horn the medial meniscus. 4. No ligamentous injury.
== END | disposition home or self-care (01) ==
LOC: RADMRIMAIN 10:54
PROVIDERS: ATTEND Orthopaedic Surgery
DX: S83.241A Other tear of medial meniscus, current injury, right knee, initial encounter (principal); S80.02XA Contusion of left knee, initial encounter; M25.461 Effusion, right knee; X58.XXXA Exposure to other specified factors, initial encounter

== ENCOUNTER → 2023-03-03 | Outpatient (CLI) | payer MEDICARE ==
[2023-03-03 11:18] LABS: Basophils # (A) 0.05 X 10*3/uL (0.00-0.10); Basophils % (A) 0.5 %; Eosinophils # (A) 0.35 X 10*3/uL (0.04-0.35); Eosinophils % (A) 3.8 %; HCT 45.6 % (39.6-50.0); HGB 14.7 d/dL (13.0-17.0); Lymphocytes % (A) 25.1 %; MCHC 32.2 d/dL (32.0-37.0); MCV 93.1 FL (80.0-97.0); Mean Platelet Volume 10.2 FL (9.5-12.2); Monocytes # (A) 0.59 X 10*3/uL (0.20-1.00); Monocytes % (A) 6.4 %; NRBC Per 100 WBC 0 X 10*3/uL (0.00-0.01); Neutrophils # (A) 5.84 X 10*3/uL (1.80-7.70); Neutrophils % (A) 63.8 %; Platelet Count 286 X 10*3/uL (140-440); RDW 12.9 % (11.5-14.5); WBC 9.17 X 10*3/uL (4.50-10.00)
[2023-03-03 11:28] LABS: Anion Gap 11.1 mmol/L (4.00-12.00); Carbon Dioxide 24.9 mmol/L (21.6-31.8); Potassium 4.3 mmol/L (3.5-5.5)
== END | disposition home or self-care (01) ==
LOC: LABPAT 07:11
PROVIDERS: ATTEND Orthopaedic Surgery
DX: Z01.812 Encounter for preprocedural laboratory examination (principal); M23.91 Unspecified internal derangement of right knee
CPT/HCPCS: 80051; 85025

== ENCOUNTER 2023-03-17 10:40 | Day surgery (SDC) | payer MEDICARE ==
[2023-03-15 08:57] VITALS: BMI 29.5
--- NOTE | 2023-03-16 16:08 | HP ---
HISTORY AND PHYSICAL DATE OF SURGERY: 03/17/2023. HISTORY OF PRESENT ILLNESS: Dick Malloy is a 72-year-old gentleman seen with progressive right knee pain. We discussed options for treatment. He elected to proceed with right knee arthroscopy. Consent was obtained. PAST MEDICAL HISTORY: Hyperlipidemia. PAST SURGICAL HISTORY: Bilateral hand surgery, left knee surgery, left shoulder arthroscopy, and coronary artery bypass. DAILY MEDICATIONS: 1. Crestor. 2. Tylenol. 3. Multivitamin. 4. Aspirin. ALLERGIES: Sulfa. SOCIAL HISTORY: Denies tobacco use. PHYSICAL EVALUATION OF THE RIGHT KNEE: His range of motion is 0 to 120 degrees. Mild effusion. Tenderness, medial joint line. Positive medial Arianna's. Ligaments are stable. Hip rotation is without pain. Distal neurovascular exam is intact. RADIOGRAPHS: Right knee radiographs revealed moderate osteoarthritis. Right knee MRI revealed medial meniscal tear. IMPRESSION: 1. Internal derangement of right knee with medial meniscal tear. 2. Hyperlipidemia. PLAN: Right knee arthroscopy with partial medial meniscectomy and debridement. MMODL / IJN: [id number] /
[~2023-03-17 10:40] MED LIST changes: +DEXAMETHASONE SOD PHOSPHATE 4 MG/ML 1 ML VIAL IV ONE; +HYDROmorphone 0.5 MG/0.5 ML SYRINGE IVP PRN; -LIDOCAINE 1% (10MG/ML) FOR IV START INTRADERMA PRN; +ONDANSETRON 4 MG/2 ML VIAL IVP ONE; -PROPOFOL 10 MG/ML 20 ML VIAL IV ONE
[2023-03-17 11:11] VITALS: TEMP 97
[2023-03-17] MEDS ORDERED: BUPIVACAINE (PF) 0.25% 30 ML VIAL SQ ONE ×2 (12:24→13:03)
[2023-03-17] MEDS ORDERED: LIDOCAINE 1% INJ 10MG/ML (20 ML MDV) ONE ×2 (12:25→13:00)
[2023-03-17] MEDS ORDERED: SUCCINYLCHOLINE CHLORIDE 200 MG/10 ML VIAL IV ONE ×2 (12:25→13:00)
[2023-03-17] MEDS ORDERED: MIDAZOLAM 2 MG/2 ML VIAL ONE ×2 (12:25→13:00)
[2023-03-17] MEDS ORDERED: PROPOFOL 10 MG/ML 20 ML VIAL IV ONE ×2 (12:25→13:00)
[2023-03-17] MEDS ORDERED: fentaNYL (PF) 50 MCG/ML 2 ML AMP ONE ×2 (12:25→13:00)
[2023-03-17] MEDS ORDERED: PHENYLEPHRINE-0.9% NACL SYG 1,000 MCG/10 ML SYRINGE ONE (13:00)
[2023-03-17] MEDS ORDERED: GLYCOPYRROLATE 0.2 MG/ML 2 ML VIAL ONE (13:00)
[2023-03-17] MEDS ORDERED: NEOSTIGMINE 1 MG/ML 10 ML VIAL ONE (13:00)
[2023-03-17] MEDS ORDERED: ROCURONIUM 10 MG/ML (5 ML VIAL) IV ONE (13:00)
--- NOTE | 2023-03-17 13:19 | P.OP ---
Date of Procedure: 03/17/23 Preoperative Diagnosis: Internal derangement right knee Postoperative Diagnosis: 1. Tear medial and lateral meniscus right knee 2. Grade 4 chondromalacia femoral sulcus right knee 3. Reactive synovitis medial, lateral and suprapatellar compartments right knee Procedure(s) Performed: 1. Arthroscopic partial medial and lateral meniscectomy right knee 2. Arthroscopic microfracture femoral sulcus right knee 3. Arthroscopic partial synovectomy medial, lateral and suprapatellar compartments right knee Anesthesia: KENNYA, local Surgeon: Jaswinder Bower Estimated Blood Loss (ml): 5 Pathology: none sent Condition: stable Disposition: PACU Indications for Procedure: 72-year-old gentleman seen with progressive right knee pain. After having treatment options discussed, he elected to proceed with arthroscopy. Operative Findings: See description of procedure Description of Procedure: Patient was taken to the operative suite. Patient underwent a general anesthetic by the department of anesthesia. Patient was given preoperative antibiotics. The right lower extremity was placed in a well-padded arthroscopic leg lugo. The right leg was prepped and draped in the normal sterile orthopedic fashion. A lateral parapatellar and suprapatellar incision was made. Trochars were inserted. Arthroscopy was initiated. Suprapatellar pouch revealed diffuse thick reactive synovitis. The patellofemoral joint appeared to articulate congruently. There was grade 1/2 chondromalacia of the patella and grade 3 chondral malacia of the femoral sulcus with one area of grade 4/exposed bone chondromalacia of the femoral sulcus. The scope was guided into the medial gutter. No loose bodies or plica were identified. The scope was then guided into the medial compartment. A medial parapatellar incision was made. Trocar inserted followed by probe. There was a complex tear involving the posterior horn medial meniscus. There were grade 2 chondromalacia changes of the medial femoral condyle and grade 3 chondral moist changes of the medial tibial plateau without osteochondral tears. There was thick reactive synovitis anteriorly. I performed a partial medial meniscectomy getting down to stable meniscal tissue. I performed a partial synovectomy decompressing the reactive synovitis. The residual meniscus was stable. There was good decompression of the synovitis. Scope and probe were then guided into the intercondylar notch. Cruciates were identified, probed and found to be stable. The scope and probe were then guided into lateral compartment. There was a radial tear mid body lateral meniscus. There were grade 1 chondromalacia changes of the lateral femoral condyle without tears. There was thick reactive synovitis anteriorly. I performed a partial lateral meniscectomy getting down to stable meniscal tissue. I performed a partial synovectomy decompressing reactive synovitis. The residual meniscus was stable. There was good decompression of the synovitis. The scope was in guided back into the suprapatellar compartment. I introduced a motorized shaver into the suprapatellar compartment. I debrided some piecemeal fragments of meniscus I encountered. I performed a partial synovectomy. There was good decompression of the synovitis. I now introduced a microfracture awl and performed a microfracture that area of exposed bone along the femoral sulcus penetrating the bone with resultant bleeding of the microfracture site. That residual area was probed and was found to be stable. I now took one more look around the entire knee, no residual debris. Instruments were now removed from the joint. The joint was infiltrated with .25% Marcaine. Steri-Strips were applied to the portal sites. Sterile dressings were applied. The patient was placed into a ELIZABETH hose. No tourniquet was utilized. The patient was awakened, transferred to a bed and taken to recovery stable satisfactory condition.
[2023-03-17 14:21] VITALS: BP 143/80; PULSE 61; RESP 20
== END 2023-03-17 14:35 | disposition home or self-care (01) ==
LOC: OR 10:40
PROVIDERS: ATTEND Orthopaedic Surgery
DX: S83.241A Other tear of medial meniscus, current injury, right knee, initial encounter (principal); S83.281A Other tear of lateral meniscus, current injury, right knee, initial encounter; M65.161 Other infective (teno)synovitis, right knee; M22.41 Chondromalacia patellae, right knee; E78.5 Hyperlipidemia, unspecified; M19.90 Unspecified osteoarthritis, unspecified site; I25.10 Atherosclerotic heart disease of native coronary artery without angina pectoris; I71.40 Abdominal aortic aneurysm, without rupture, unspecified; Z88.2 Allergy status to sulfonamides; Z95.1 Presence of aortocoronary bypass graft; Z79.82 Long term (current) use of aspirin; Z79.1 Long term (current) use of non-steroidal anti-inflammatories (NSAID); Z79.899 Other long term (current) drug therapy; Z91.013 Allergy to seafood; Z88.8 Allergy status to other drugs, medicaments and biological substances; X58.XXXA Exposure to other specified factors, initial encounter
CPT/HCPCS: 29880; 29879; J2250; J0330; J1100; J2710; J0690; J2405; J2001; J3010; J2704; J2371; J0665

== ENCOUNTER → 2023-04-07 | Outpatient (CLI) | payer MEDICARE ==
[2023-04-07 14:29] LABS: African American GFR (CKD) 83 (>60 ml/min/1.73 sqM); Blood Urea Nitrogen 14 mg/dL (9-20); Non-African American GFR(CKD) 72 (>60 ml/min/1.73 sqM)
--- NOTE | 2023-04-07 16:26 | CT ---
EXAMINATION TYPE: CT angio chest DATE OF EXAM: 04/07/2023 COMPARISON: 03/05/2022 HISTORY: Ascending thoracic aortic aneurysm. CT DLP: 1184.8 mGycm CONTRAST: CTA thoracic aorta with 3-D reconstruction is performed and with IV Contrast, patient injected with 1 00 ml mL of Isovue 370. Contrast CTA of the thoracic aorta was performed from the lung apex through the upper abdomen. 3D re construction imaging obtained at a separate workstation. CT Chest: THORACIC AORTA: There is a stable 4.5 cm ascending thoracic aortic aneurysm unchanged from prior stud y. Mild atheromatous changes seen. There is no evidence for dissection or periaortic collection. LUNGS: The lungs are clear and free of infiltrate or atelectasis. No pulmonary nodule or mass is det ected. No pleural effusion or CT evidence of interstitial lung disease. MEDIASTINUM: No evidence for mediastinal hematoma. The heart is not enlarged. No evidence for med iastinal mass or adenopathy. Median sternotomy changes. HILAR STRUCTURES: No evidence for mass. No hilar adenopathy is appreciated. OTHER: No significant abnormality. IMPRESSION- Stable ascending thoracic aortic aneurysm.
== END | disposition home or self-care (01) ==
LOC: RADCTMAIN 13:30
PROVIDERS: ATTEND Internal Medicine Interventional Cardiology
DX: I71.21 Aneurysm of the ascending aorta, without rupture (principal)
CPT/HCPCS: 82565; 84520; 71275; Q9967

== ENCOUNTER → 2023-06-01 | Outpatient (CLI) | payer MEDICARE ==
[2023-06-01 15:18] LABS: BUN/Creat Ratio 8.75 Ratio (12.00-20.00); Blood Urea Nitrogen 10.5 mg/dL (9.0-27.0); Calcium 9.6 mg/dL (8.7-10.3); Carbon Dioxide 24.2 mmol/L (21.6-31.8); Chloride 108 mmol/L (96-109); Glucose 117 mg/dL (70-110); Potassium 4.7 mmol/L (3.5-5.5); Sodium 144 mmol/L (135-145)
[2023-06-01 15:46] LABS: Basophils # (A) 0.06 X 10*3/uL (0.00-0.10); Basophils % (A) 0.8 %; Eosinophils # (A) 0.29 X 10*3/uL (0.04-0.35); Eosinophils % (A) 3.8 %; HCT 43.9 % (39.6-50.0); HGB 14.4 g/dL (13.0-17.0); Lymphocytes # (A) 2.22 X 10*3/uL (0.90-5.00); Lymphocytes % (A) 28.9 %; MCH 30.1 pg (27.0-32.0); MCHC 32.8 g/dL (32.0-37.0); MCV 91.8 FL (80.0-97.0); Mean Platelet Volume 10.3 FL (9.5-12.2); Monocytes # (A) 0.51 X 10*3/uL (0.20-1.00); Monocytes % (A) 6.6 %; NRBC Per 100 WBC 0 X 10*3/uL (0.00-0.01); Neutrophils # (A) 4.57 X 10*3/uL (1.80-7.70); Neutrophils % (A) 59.4 %; Platelet Count 266 X 10*3/uL (140-440); RBC 4.78 X 10*6/uL (4.40-5.60); RDW 13.2 % (11.5-14.5); WBC 7.69 X 10*3/uL (4.50-10.00)
== END | disposition home or self-care (01) ==
LOC: LABPAT 07:31
PROVIDERS: ATTEND Urology
DX: Z01.812 Encounter for preprocedural laboratory examination (principal); N40.1 Benign prostatic hyperplasia with lower urinary tract symptoms
CPT/HCPCS: 36415; 80048; 85025

== ENCOUNTER 2023-06-09 06:11 | Day surgery (SDC) | payer MEDICARE ==
[~2023-06-09 06:11] MED LIST changes: -HYDROmorphone 0.5 MG/0.5 ML SYRINGE IVP PRN; +LIDOCAINE 1% (10MG/ML) FOR IV START INTRADERMA PRN; +droPERidol 5 MG/2 ML VIAL IVP ONE
--- NOTE | 2023-06-09 06:44 | P.GSHP ---
History of Present Illness H&P Date: 06/09/23 Chief Complaint: Lower urinary tract symptoms The patient is a 73-year-old white male with a history of urothelial carcinoma the bladder. He was diagnosed with urothelial carcinoma with lamina propria invasion in 2013. 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 He has been treated with intravesical BCG. Recent cystoscopy and urine cytology are negative. However, he reports voiding symptoms including daytime urinary frequency, nocturia, postvoid dribbling, urinary urge incontinence, and nocturnal enuresis. This requires the use of up to 4 pads daily. Cystoscopy shows evidence of BPH. - Genitourinary (Male) Genitourinary: Reports as per HPI Past Medical History Past Medical History: Coronary Artery Disease (CAD), Cancer, Hyperlipidemia, Osteoarthritis (OA), Prostate Disorder Additional Past Medical History / Comment(s): HX BLADDER CA w/BCG tx., in remission. , HX OF RENAL CALCULUS yrs ago. snores, rt shoulder pain. Enlarged prostate.Ascending aortic aneurysm 4.5 and steady , being watched. hx polyps History of Any Multi-Drug Resistant Organisms: None Reported Past Surgical History: Bladder Surgery, Coronary Bypass/CABG, Heart Catheterization, Orthopedic Surgery Additional Past Surgical History / Comment(s): Arthroscopy L Shoulder x 2; Arthr oscopy L Knee X 2; Wrist surg.; BLADDER SX X 6, MIRIAM THUMB JOINTS, 2 TRIGGER FINGERS, quad bypass 2017, & then sternal wires removed & sternal plating done. rt knee arthroscopy x2. rt shoulder arthroscopy. colonoscopy Past Anesthesia/Blood Transfusion Reactions: Postoperative Nausea & Vomiting (PONV) Smoking Status: Never smoker - Past Family History Mother Family Medical History: Coronary Artery Disease (CAD), Deep Vein Thrombosis (DVT) Medications and Allergies Home Medications Medication Instructions Recorded Confirmed Type Aspirin 81 mg PO DAILY 07/05/18 06/03/23 History Rosuvastatin [Crestor] 10 mg PO HS 07/05/18 06/03/23 History Multivitamins, Thera [Multivitamin 1 tab PO DAILY 12/03/19 06/03/23 History (formulary)] Acetaminophen/Diphenhydramine 1 tab PO HS PRN 03/15/23 06/03/23 History [Tylenol PM 500-25mg] Psyllium Husk [Metamucil] 0.4 gm PO DIRECTED 03/15/23 06/03/23 History Allergies Allergy/AdvReac Type Severity Reaction Status Date / Time shellfish derived Allergy Anaphylaxis Verified 06/03/23 15:13 Ktwoigs-KPQ-GkW Reductase AdvReac muscle Verified 06/03/23 15:13 Inhibitor weakness [Qexnchs-Mso-Aoo Reductase Inhibitor] Surgical - Exam - General well developed, well nourished, no distress - Respiratory normal respiratory effort - Abdomen Abdomen: soft, non tender, no guarding, no rigid, no rebound - Genitourinary normal penis with no external lesions, testicles non-tender - Psychiatric oriented to time, oriented to person, oriented to place, speech is normal, memory intact Assessment and Plan (1) Benign prostatic hyperplasia with lower urinary tract symptoms Current Visit: Yes Status: Acute Code(s): N40.1 - BENIGN PROSTATIC HYPERPLASIA WITH LOWER URINARY TRACT SYMP SNOMED Code(s): 022870648 Plan: Cystoscopy with Urolift implants to reduce bladder outflow obstruction. The procedure has been reviewed in detail with the patient, who chooses to undergo this rather than a TURP. Risks have been reviewed, which include anesthesia, bleeding, infection, postoperative irritative voiding symptoms, and treatment failure.
[2023-06-09] MEDS ORDERED: HYDROmorphone 0.5 MG/0.5 ML SYRINGE IVP PRN (07:00)
[2023-06-09] MEDS ORDERED: MIDAZOLAM 2 MG/2 ML VIAL ONE (07:55)
[2023-06-09] MEDS ORDERED: LIDOCAINE 1% INJ 10MG/ML (20 ML MDV) ONE (07:55)
[2023-06-09] MEDS ORDERED: fentaNYL (PF) 50 MCG/ML 2 ML AMP ONE (07:55)
[2023-06-09] MEDS ORDERED: PROPOFOL 10 MG/ML 20 ML VIAL IV ONE (07:55)
[2023-06-09] MEDS ORDERED: ROCURONIUM 10 MG/ML (5 ML VIAL) IV ONE (07:55)
[2023-06-09] MEDS ORDERED: SUCCINYLCHOLINE CHLORIDE 200 MG/10 ML VIAL IV ONE (07:55)
[2023-06-09] MEDS ORDERED: GLYCOPYRROLATE 0.2 MG/ML 2 ML VIAL ONE (07:55)
[2023-06-09] MEDS ORDERED: PHENYLEPHRINE-0.9% NACL SYG 1,000 MCG/10 ML SYRINGE ONE (07:55)
[2023-06-09] MEDS ORDERED: NEOSTIGMINE 1 MG/ML 10 ML VIAL ONE (07:55)
--- NOTE | 2023-06-09 09:07 | P.OP ---
Date of Procedure: 06/09/23 Preoperative Diagnosis: BPH with obstruction Postoperative Diagnosis: Same Procedure(s) Performed: Cystoscopy with Urolift Implants (4) Anesthesia: KENNYA Surgeon: Skyler Johnson Estimated Blood Loss (ml): 5 IV fluids (ml): 300 Pathology: none sent Condition: stable Disposition: PACU Indications for Procedure: The patient is a 73-year-old white male with a history of urothelial carcinoma the bladder. He was diagnosed with urothelial carcinoma with lamina propria invasion in 2013. 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 He has been treated with intravesical BCG. Recent cystoscopy and urine cytology are negative. However, he reports voiding symptoms including daytime urinary frequency, nocturia, postvoid dribbling, urinary urge incontinence, and nocturnal enuresis. This requires the use of up to 4 pads daily. Cystoscopy shows evidence of BPH. Operative Findings: 4 implants placed, resulting in an open prostatic fossa. Description of Procedure: The patient was taken in the operating room and placed in the dorsolithotomy position. The external genitalia was prepped and draped sterilely. The 30 lens was used to introduce the Stortz cystoscopic sheath through the urethra and into the bladder under direct vision. The anterior urethra appeared normal. The prostatic urethra showed evidence of prior resection at 6:00 resulting from a transurethral prostatic urethral biopsy. Partially obstructing anterior tissue was noted. Both ureteral orifices were of normal anatomic location and configuration. No tumors or foreign bodies were seen. The bladder was not trabeculated. Urolift implants were placed at the 10:00 and 2:00 positions approximately 1.5 cm distal to the vesical neck. 2 additional Urolift implants were placed at the 9:00 and 3:00 positions at the level of the verumontanum, resulting in an open prostatic fossa. Hemostasis was adequate. The bladder was emptied and the cystoscope removed. The patient tolerated the procedure well was taken to the recovery room in stable condition.
[2023-06-09 09:18] VITALS: TEMP 97.2
[2023-06-09 09:43] VITALS: RESP 18
[2023-06-09 10:06] VITALS: BP 155/96; PULSE 63
== END 2023-06-09 10:11 | disposition home or self-care (01) ==
LOC: OR 06:11
PROVIDERS: ATTEND Urology
DX: N40.1 Benign prostatic hyperplasia with lower urinary tract symptoms (principal); N13.8 Other obstructive and reflux uropathy; N39.43 Post-void dribbling; R35.0 Frequency of micturition; R35.1 Nocturia; N39.41 Urge incontinence; N39.44 Nocturnal enuresis; Z85.51 Personal history of malignant neoplasm of bladder; E78.5 Hyperlipidemia, unspecified; I25.10 Atherosclerotic heart disease of native coronary artery without angina pectoris; M19.90 Unspecified osteoarthritis, unspecified site; I71.21 Aneurysm of the ascending aorta, without rupture; Z87.442 Personal history of urinary calculi; Z95.1 Presence of aortocoronary bypass graft; Z88.8 Allergy status to other drugs, medicaments and biological substances; Z91.013 Allergy to seafood; Z79.82 Long term (current) use of aspirin; Z79.899 Other long term (current) drug therapy
CPT/HCPCS: 52441; 52442 ×3; L8699; J2250; J0330; J1100; J2710; J0690; J2405; J2001; J3010; J2704; J2371

== ENCOUNTER → 2023-10-20 | Outpatient (CLI) | payer MEDICARE ==
[2023-10-20 15:30] LABS: ALT 54 U/L (10-49); AST 34 U/L (14-35); Albumin 4.9 g/dL (3.8-4.9); Albumin/Globulin Ratio 2.13 Ratio (1.60-3.17); Alkaline Phosphatase 86 U/L (41-126); BUN/Creat Ratio 12.92 Ratio (12.00-20.00); Blood Urea Nitrogen 15.5 mg/dL (9.0-27.0); Calcium 9.8 mg/dL (8.7-10.3); Carbon Dioxide 20.7 mmol/L (21.6-31.8); Chloride 110 mmol/L (96-109); Chol/HDL Ratio 3.21 Ratio; Globulin 2.3 g/dL (1.6-3.3); Glucose 136 mg/dL (70-110); LDL Cholesterol,Calculated 72.6 mg/dL (0.0-131.0); Potassium 4.4 mmol/L (3.5-5.5); Sodium 145 mmol/L (135-145); Total Bilirubin 0.5 mg/dL (0.3-1.2); Total Protein 7.2 g/dL (6.2-8.2)
== END | disposition home or self-care (01) ==
LOC: LABWHC1 07:44
PROVIDERS: ATTEND Nurse Practitioner Adult Health
DX: I10 Essential (primary) hypertension (principal); E78.2 Mixed hyperlipidemia
CPT/HCPCS: 36415; 80053; 80061

== ENCOUNTER → 2024-04-02 | Outpatient (CLI) | payer MEDICARE ==
[2024-04-02 11:47] LABS: African American GFR (CKD) 69 (>60 ml/min/1.73 sqM); Blood Urea Nitrogen 14 mg/dL (9-20); Non-African American GFR(CKD) 59 (>60 ml/min/1.73 sqM)
--- NOTE | 2024-04-02 13:48 | CT ---
EXAMINATION TYPE: CT angio chest CT DLP: 1069.50 mGycm, Automated exposure control for dose reduction was used. DATE OF EXAM: 04/02/2024 12:20 PM COMPARISON: CTA chest of 11/05/2022, 03/05/2022, CT chest 07/14/2021 CLINICAL INDICATION:Male, 74 years old with history of I71.20; thoracic aortic aneurysm hx of sternot lenore patient requesting new comments on site TECHNIQUE/CONTRAST: CTA scan of the thorax is performed without and with IV Contrast, patient injected with 100 mL of Iso dav 370. 3D reconstructed images are created on an independent workstation and reviewed.. FINDINGS: Lungs/Pleura: No evidence of focal consolidation, pleural effusion or pneumothorax. Stable 3 mm nodul e along the anterior lateral aspect of the left lower lobe (series 7, image 104). No new or enlarging pulmonary nodules. Airway: Large airways are patent. Heart: Heart is within normal limits for size.. No pericardial effusion. Post-CABG changes. The anter ior aspect of the right ventricle and the adjacent pericardium are again apparently tethered towards a sternotomy. Vasculature: Four-vessel aortic arch. No evidence of intramural hematoma or dissection. Stable aneury sm dilatation ascending thoracic aorta measuring up to 4.4 cm. Aortic root is normal in caliber measu ring up to 3.1 cm. Descending thoracic aorta measures up to 2.7 cm. No filling defects within the vis ualized pulmonary arteries. Mediastinum: No evidence of adenopathy. Musculoskeletal: No acute osseous abnormalities. Median sternotomy fixation clips with 3 plates and m ultiple screws. Stable mild gaping of the superior aspect of the sternotomy measuring up to 5 mm. No obvious hematoma collection adjacent to the sternotomy site. There is again apparent minimal withdraw al of 2 mm or less of the right-sided screw of the upper plate, the most inferior left-sided screw of the middle plate and the 2 left-sided screws of the inferior plate. Similar elongated metallic fragm ent seen at the right side of the most superior aspect of the sternum, possibly representing residual wire/prosthesis. There is again minimal DISH of the mid to lower thoracic spine. Soft Tissues: Unremarkable. Lower neck: No significant findings. Upper Abdomen: Cholelithiasis. Stable anterior hepatic lobe 1.4 cm cyst. IMPRESSION: 1. Stable aneurysm dilatation of the ascending thoracic aorta measuring up to 4.4 cm. 2. Post surgical changes as described above are similar to prior CT dating back to 2021. 3. Cholelithiasis. [facility], , 04/02/2024 1:46 PM
== END | disposition home or self-care (01) ==
LOC: RADCTMAIN 11:07
PROVIDERS: ATTEND Internal Medicine Interventional Cardiology
DX: I71.21 Aneurysm of the ascending aorta, without rupture (principal); K80.20 Calculus of gallbladder without cholecystitis without obstruction; Q25.49 Other congenital malformations of aorta; R91.1 Solitary pulmonary nodule
CPT/HCPCS: 82565; 84520; 71275; 36415; Q9967

== ENCOUNTER → 2024-05-01 | Outpatient (CLI) | payer MEDICARE ==
[2024-05-01 15:58] LABS: ALT 36 U/L (10-49); AST 29 U/L (14-35); Chol/HDL Ratio 3.62 Ratio; LDL Cholesterol,Calculated 79.8 mg/dL (0.0-131.0)
== END | disposition home or self-care (01) ==
LOC: LABWHC1 07:48
PROVIDERS: ATTEND Internal Medicine Interventional Cardiology
DX: E78.2 Mixed hyperlipidemia (principal)
CPT/HCPCS: 36415; 80061; 84450; 84460

== ENCOUNTER 2024-11-30 09:50 | Day surgery (SDC) | payer MEDICARE ==
[2024-11-29 09:40] VITALS: BMI 29.7
[2024-11-30] MEDS: IV FLUID CONTINUATION 1,000 ML IV ONE (10:02)
[2024-11-30 10:13] VITALS: TEMP 97.1
[2024-11-30 10:24] LABS: Glucose,Whole Blood 116 mg/dL (70-110)
[2024-11-30] MEDS: LACTATED RINGERS 1,000 ML IV SCH (10:25)
[2024-11-30] MEDS ORDERED: PROPOFOL 10 MG/ML 20 ML VIAL IV ONE (10:58)
--- NOTE | 2024-11-30 11:18 | P.PCN ---
Date of Procedure: 11/30/24 Procedure(s) Performed: BRIEF HISTORY: Patient is a 74-year-old pleasant white male scheduled for an elective colonoscopy as a part of screening for colon cancer. His father was diagnosed with colon cancer at age 80.. PROCEDURE PERFORMED: Colonoscopy. PREOPERATIVE DIAGNOSIS: Screening for colon cancer and family history of colon cancer.. IV sedation per Anesthesia. PROCEDURE: After informed consent was obtained, the patient, was brought into the endoscopy unit. IV sedation was administered by Anesthesia under continuous monitoring. Digital rectal examination was normal. Initially the Olympus CF-160 flexible video colonoscope was then inserted in the rectum, gradually advanced into the cecum without any difficulty. Careful examination was performed as the scope was gradually being withdrawn. Ileocecal valve and the appendiceal orifice were visualized and appeared normal. Prep was excellent. Mucosa of the cecum, ascending colon, transverse colon, descending colon, sigmoid colon, and rectum appeared normal. Retroflexion was performed in the rectum and small internal hemorrhoid s were seen. The patient tolerated the procedure well. IMPRESSION: Normal-appearing colon from rectum to cecum with no evidence of colorectal neoplasia Small internal hemorrhoids. RECOMMENDATIONS: Findings of this examination were discussed with the patient as well as his family. He was advised to have repeat screening colonoscopy in 5 years because of a family history of colon cancer.
[2024-11-30 11:33] VITALS: RESP 16
[2024-11-30 11:53] VITALS: BP 111/79; PULSE 64
== END 2024-11-30 12:05 ==
LOC: ORWHC2ENDO 09:50
PROVIDERS: ATTEND Internal Medicine Gastroenterology
DX: Z12.11 Encounter for screening for malignant neoplasm of colon (principal); K64.8 Other hemorrhoids; I10 Essential (primary) hypertension; I25.10 Atherosclerotic heart disease of native coronary artery without angina pectoris; E11.9 Type 2 diabetes mellitus without complications; E78.5 Hyperlipidemia, unspecified; K21.9 Gastro-esophageal reflux disease without esophagitis; Z79.84 Long term (current) use of oral hypoglycemic drugs; Z79.899 Other long term (current) drug therapy; Z85.51 Personal history of malignant neoplasm of bladder; Z80.0 Family history of malignant neoplasm of digestive organs
CPT/HCPCS: J2704; G0105